=== PATIENT | male | born 1955 | race Caucasian/White ===

== ENCOUNTER 2017-01-12 00:22 | Inpatient (IN) | payer OTHER ==
[2017-01-12] VITALS (28 sets, daily range): BP systolic 107–185; BP diastolic 60–100; PULSE 86–118; RESP 15–38; TEMP 98–99.1; O2SAT 85–99
[~2017-01-12] VITALS: Ht 182.9 cm; Wt 95.7 kg
[2017-01-12] MEDS ORDERED: ASPIRIN 81 MG CHEW TAB PO STA (00:31)
[2017-01-12] MEDS ORDERED: SODIUM CHLOR 0.9% 1000 ML INJ 1,000 ML IV ONE (00:31)
[2017-01-12] MEDS ORDERED: HEPARIN SODIUM - IV 10,000 UNITS/10 ML VIAL IV STA (00:31)
[2017-01-12] MEDS ORDERED: NITROGLYCERIN 0.4 MG SL 25 TABS/BTL SL STA (00:31)
--- NOTE | 2017-01-12 00:34 | PD ---
HPI Chief Complaint: Chest Pain Time Seen by Provider: 00:31 Travel History International Travel<30 days: No Contact w/Intl Traveler<30days: No History of Present Illness HPI Patient is a 61-year-old male who comes in complaining of chest pain. He says the pain started 2 hours ago and is located on the left side. He reports nausea and had an episode of vomiting and dinner. He also reports some shortness of breath. He says he has been having episodes of chest pain for the past week, but they have been short and have gone away on their own. He denies any medical problems, but says that he has not seen a doctor in the past 4 years. [facility] Past Medical History Medical History: Denies Significant Hx Atrial Fibrillation: No Blood Disorders: No Heart Rhythm Problems: No Chest Pain: Yes Congestive Heart Failure: No Past Surgical History Surgical History: No Previous Surgery Social History Tobacco Use: No Allergies-Medications (Allergen,Severity, Reaction): Coded Allergies: No Known Allergies (Unverified , 01/12/17) Review of Systems Except as stated in HPI: all other systems reviewed are Neg General / Constitutional: No: Fever, Chills HENT: No: Headaches, Lightheadedness Cardiovascular: Positive: Chest Pain or Discomfort Respiratory: Positive: Shortness of Breath Gastrointestinal: Positive: Nausea, Vomiting, No: Abdominal Pain Musculoskeletal: No: Edema, Pain Skin: No Rash, No Change in Pigmentation Neurologic: No: Weakness, Dizziness Physical Exam Narrative GENERAL: Awake and alert, in moderate distress. SKIN: Diaphoretic. HEAD: Atraumatic. Normocephalic. EYES: Pupils equal and round. No scleral icterus. ENT: Mucous membranes pink and moist. NECK: Trachea midline. No JVD. CARDIOVASCULAR: Regular rate and rhythm. No murmur appreciated. RESPIRATORY: No accessory muscle use. Clear to auscultation. Breath sounds equal bilaterally. GASTROINTESTINAL: Abdomen soft, non-tender, nondistended. MUSCULOSKELETAL: No obvious deformities. No clubbing. No cyanosis. No edema. NEUROLOGICAL: Awake and alert. No obvious cranial nerve deficits. Motor grossly within normal limits. Normal speech. PSYCHIATRIC: Appropriate mood and affect; insight and judgment normal. Data Data Last Documented VS Vital Signs Date Time Temp Pulse Resp B/P Pulse Ox O2 Delivery O2 Flow Rate FiO2 01/12/17 00:50 101 15 170/91 98 Non-Rebreather 15 01/12/17 00:44 98.3 Orders Troponin I (01/12/17 00:31) Ckmb (Isoenzyme) Profile (01/12/17 00:31) Complete Blood Count With Diff (01/12/17 00:31) I-Stat Profile (01/12/17 00:31) I-Stat Creatinine (01/12/17:31) Calcium (01/12/17 00:31) Magnesium (Mg) (01/12/17:31) Prothrombin Time / Inr (Pt) (01/12/17:31) Act Partial Throm Time (Ptt) (01/12/17:31) B-Type Natriuretic Peptide (01/12/17:31) Chest, Single Ap (01/12/17 00:31) Oxygen Administration (01/12/17 00:31) Iv Access Insert/Monitor (01/12/17 00:31) Oximetry (01/12/17 00:31) Sodium Chlor 0.9% 1000 Ml Inj (Ns 1000 M (01/12/17 00:31) Sodium Chloride 0.9% Flush (Ns Flush) (01/12/17 00:45) Aspirin Chew (Aspirin Chew) (01/12/17 00:31) Nitroglycerin Sl (Nitrostat Sl) (01/12/17 00:31) Nitroglycerin-Dextrose Inj (Nitroglyceri (01/12/17 00:45) Heparin Inj (Heparin Inj) (01/12/17 00:31) CKMB (01/12/17 00:30) CKMB% (01/12/17 00:30) Heparin-Ns/Pf Inj (Heparin-Ns/Pf Inj) (01/12/17 01:00) Admit Order (Ed Use Only) (01/12/17 ) Labs Laboratory Tests Test 01/12/17 00:30 White Blood Count 13.2 TH/MM3 Red Blood Count 5.59 MIL/MM3 Hemoglobin 15.1 GM/DL Bedside Hemoglobin 15.6 G/DL Hematocrit 45.7 % Bedside Hematocrit 46.0 % Mean Corpuscular Volume 81.7 FL Mean Corpuscular Hemoglobin 26.9 PG Mean Corpuscular Hemoglobin 33.0 % Concent Red Cell Distribution Width 14.1 % Platelet Count 298 TH/MM3 Mean Platelet Volume 8.5 FL Neutrophils (%) (Auto) 64.5 % Lymphocytes (%) (Auto) 24.5 % Monocytes (%) (Auto) 7.8 % Eosinophils (%) (Auto) 1.9 % Basophils (%) (Auto) 1.3 % Neutrophils # (Auto) 8.5 TH/MM3 Lymphocytes # (Auto) 3.2 TH/MM3 Monocytes # (Auto) 1.0 TH/MM3 Eosinophils # (Auto) 0.2 TH/MM3 Basophils # (Auto) 0.2 TH/MM3 CBC Comment DIFF FINAL Differential Comment Prothrombin Time 10.3 SEC Prothromb Time International 0.9 RATIO Ratio Activated Partial 26.6 SEC Thromboplast Time Bedside Sodium 142 MMOL/L Bedside Potassium 4.3 MMOL/L Bedside Chloride 108 MMOL/L Bedside Blood Urea Nitrogen 25 MG/DL Bedside Creatinine 1.1 MG/DL Bedside Glucose 128 MG/DL Calcium Level 9.5 MG/DL Magnesium Level 2.2 MG/DL Total Creatine Kinase 149 U/L Creatine Kinase MB 2.0 NG/ML Troponin I 0.22 NG/ML B-Type Natriuretic Peptide 291 PG/ML MDM Medical Decision Making Medical Screen Exam Complete: Yes Emergency Medical Condition: Yes Interpretation(s) ECG shows ST elevation in V1 through V3, lead 3 and aVF. Differential Diagnosis ACS versus STEMI versus NSTEMI Narrative Course Patient is a 61-year-old male who comes in complaining of chest pain. On exam, patient is diaphoretic, in moderate distress. ECG shows a STEMI. STEMI alert issue. IV established, patient connected to the card lacer. Labs sent. With Dr. Simmons of cardiology who agrees with STEMI and will take the patient to the catheter lab. Patient given nitroglycerin, aspirin, heparin. Admitted for further management. Diagnosis Primary Impression: STEMI (ST elevation myocardial infarction) Qualified Code: I21.29 - ST elevation myocardial infarction (STEMI) involving other coronary artery Admitting Information Admitting Physician Requests: Admit Maddi Matthews MD Jan 12, 2017 00:34
[2017-01-12 00:44] LABS: AUTOMATED NEUTROPHIL # 8.5 TH/MM3 (1.8-7.7); BASOPHIL # 0.2 TH/MM3 (0-0.2); BASOPHIL % 1.3 % (0.0-2.0); EOSINOPHIL # 0.2 TH/MM3 (0-0.4); EOSINOPHIL % 1.9 % (0.0-4.0); HEMATOCRIT 45.7 % (39.0-51.0); HEMO FLAGS DIFF FINAL; I-STAT POTASSIUM 4.3 MMOL/L (3.5-4.9); I-STAT SODIUM 142 MMOL/L (138-146); LYMPH % 24.5 % (9.0-44.0); LYMPHOCYTE # 3.2 TH/MM3 (1.0-4.8); MEAN CELL VOLUME 81.7 FL (80.0-100.0); MEAN CORPUSCULAR HEMOGLOBIN 26.9 PG (27.0-34.0); MONO % 7.8 % (0.0-8.0); NEUT % 64.5 % (16.0-70.0); PLATELET COUNT 298 TH/MM3 (150-450); RED BLOOD COUNT 5.59 MIL/MM3 (4.50-5.90); RED CELL DISTRIBUTION WIDTH 14.1 % (11.6-17.2); WHITE BLOOD COUNT 13.2 TH/MM3 (4.0-11.0)
[2017-01-12] MEDS: NITROGLYCERIN-DEXTROSE INJ 250 ML IV SCH (00:44)
[2017-01-12] MEDS ORDERED: SODIUM CHLORIDE 0.9% FLUSH 10 ML FLUSH IVF PRN (00:45)
[2017-01-12 00:50] LABS: APTT (PATIENT) 26.6 SEC (24.3-30.1); INTERNATIONAL NORMALIZED RATIO 0.9 RATIO; PROTHROMBIN TIME - PATIENT 10.3 SEC (9.8-11.6)
[2017-01-12 00:56] LABS: CREATINE KINASE 149 U/L (39-308)
[2017-01-12 00:57] LABS: MAGNESIUM 2.2 MG/DL (1.5-2.5)
[2017-01-12] MEDS ORDERED: HEPARIN-NS/PF INJ 500 ML ONE ×2 (01:00→11:02)
[2017-01-12] MEDS ORDERED: IOHEXOL 350 MG/ML 100 ML BTL (for Cath Lab) OTHER ONE (01:05)
--- NOTE | 2017-01-12 01:27 | RADRPT ---
EXAM DATE/TIME: 01/12/2017 00:51 [facility] COMPARISON: No previous studies available for comparison. INDICATIONS : Stroke alert. Stemi Alert. MEDICAL HISTORY : None. SURGICAL HISTORY : None. ENCOUNTER: Initial ACUITY: 1 day PAIN SCORE: 0/10 LOCATION: Bilateral chest FINDINGS: There are findings of basilar airspace disease most characteristic of atelectasis. No effusion. No pn eumothorax. Heart size within normal limits. CONCLUSION: 1. Basilar atelectasis. No effusion or pneumothorax. Eleno Brito MD on January 12, 2017 at 1:25 Board Certified Radiologist. This report was verified electronically.
[2017-01-12] MEDS ORDERED: SODIUM NITROPRUSSIDE 50 MG/2 ML VIAL ONE (01:28)
[2017-01-12] MEDS ORDERED: HEPARIN SODIUM - IV 10,000 UNITS/10 ML VIAL ONE ×2 (01:35→11:01)
[2017-01-12] MEDS ORDERED: PRASUGREL 10 MG TAB ONE (01:49)
[2017-01-12] MEDS ORDERED: TIROFIBAN BOLUS INJ 100 ML IV ONE (01:49)
[2017-01-12] MEDS ORDERED: FUROSEMIDE 40 MG/4 ML VIAL ONE ×2 (01:50→11:42)
[2017-01-12] MEDS: TIROFIBAN INFUSION INJ 250 ML IV SCH ×2 (01:55→14:02)
[2017-01-12] MEDS ORDERED: MISC INFORMATION XX ONE ×2 (02:00→12:00)
[2017-01-12] MEDS ORDERED: PRASUGREL 10 MG TAB PO ONE (02:00)
[2017-01-12] MEDS ORDERED: BACITRACIN OINT 0.9 GM PKT TOP ONE (02:00)
--- NOTE | 2017-01-12 06:01 | MB ---
cc: WES MCCARTNEY M.D. DATE OF CONSULTATION 01/12/2017 HISTORY OF PRESENT ILLNESS Grant is a very pleasant 60-year-old gentleman with no significant past medical history who developed severe chest pain at approximately 10:00 p.m. on 12/2016, was found to have anterior ST elevation on the EKG in the ER. STEMI Alert called. I discussed the case with Dr. Maddi Matthews. The patient otherwise denies any fevers, chills, or cough, GI or bleeding, PND, orthopnea, syncope or dizziness. PAST MEDICAL HISTORY As Per the History of Present Illness. MEDICATIONS IN THE ER 1. 7000 units of heparin, 2. Aspirin 325. 3. IV nitro. PHYSICAL EXAMINATION VITAL SIGNS: Blood pressure 170/91, pulse 101, temperature 98.3, sats 98% on non-rebreather. GENERAL: He is alert and oriented x 3, in no acute distress. NECK: Supple. No JVD or bruit. CARDIOVASCULAR: S1, S2. No murmurs, rubs, or gallops. LUNGS: Clear to auscultation bilaterally. ABDOMEN: Soft, non-tender, non-distended. Positive bowel sounds. EXTREMITIES: No extremity edema. CHEST X-RAY Bibasilar atelectasis. No effusion or pneumothorax. EKG Sinus rhythm at 89 beats/minute with 4-[address]-segment elevation in lead V1, V2, V3, V4. PACs. LABORATORY DATA White count 13.2, hemoglobin 15.1, hematocrit 45.7, platelet count 298. Sodium 142, potassium 4.3, chloride 108, bicarb 25, creatinine 1.1, glucose 128. Troponin 0.22. BNP is 291. DIAGNOSES 1. STEMI. 2. Hypertension. 3. Hyperglycemia. 4. Congestive heart failure. 5. Decompensated congestive heart failure. 6. Elevated white count. DISCUSSION At this point STEMI has been called. I have discussed the case with the ER physician, Dr. Matthews, and I agree with calling the STEMI Alert. The patient has received aspirin and heparin in the ER as well as IV nitro. PLAN The plan is for emergent cardiac catheterization and probable PCI. MD KAYLA Foster/MINNA /2:09 AM /5:48 AM
[2017-01-12] MEDS ORDERED: ONDANSETRON HCL 4 MG/2 ML VIAL ONE (06:11)
[2017-01-12] MEDS: RAMIPRIL 2.5 MG CAP PO SCH (08:58)
[2017-01-12] MEDS: ASPIRIN 81 MG CHEW TAB PO SCH (08:58)
[2017-01-12] MEDS: ONDANSETRON HCL 4 MG/2 ML VIAL IV PUSH PRN ×3 (09:39→22:35)
[2017-01-12] MEDS ORDERED: TIROFIBAN INFUSION INJ 250 ML IV ONE (11:00)
[2017-01-12 11:19] LABS: AUTOMATED NEUTROPHIL # 10.3 TH/MM3 (1.8-7.7); BASOPHIL # 0.1 TH/MM3 (0-0.2); BASOPHIL % 0.9 % (0.0-2.0); HEMO FLAGS DIFF FINAL; LYMPH % 9.3 % (9.0-44.0); LYMPHOCYTE # 1.1 TH/MM3 (1.0-4.8); MEAN CELL VOLUME 82.2 FL (80.0-100.0); MEAN CORPUSCULAR HEMOGLOBIN 26.5 PG (27.0-34.0); MEAN CORPUSCULAR HGB CONC 32.2 % (32.0-36.0); MONO % 4.5 % (0.0-8.0); NEUT % 85.3 % (16.0-70.0); PLATELET COUNT 263 TH/MM3 (150-450); RED BLOOD COUNT 4.99 MIL/MM3 (4.50-5.90); RED CELL DISTRIBUTION WIDTH 14.1 % (11.6-17.2); WHITE BLOOD COUNT 12.1 TH/MM3 (4.0-11.0)
[2017-01-12 11:27] LABS: APTT (PATIENT) 24.5 SEC (24.3-30.1); PROTHROMBIN TIME - PATIENT 10.7 SEC (9.8-11.6)
[2017-01-12 11:36] LABS: I-STAT POTASSIUM 3.8 MMOL/L (3.5-4.9); I-STAT SODIUM 140 MMOL/L (138-146)
[2017-01-12 12:00] LABS: CKMB 240.4 NG/ML (0.5-3.6)
[2017-01-12] MEDS ORDERED: NITROGLYCERIN-DEXTROSE INJ 250 ML ONE (12:13)
[2017-01-12] MEDS ORDERED: IOHEXOL 350 MG/ML 50 ML BTL (for Cath Lab) OTHER ONE (12:34)
[2017-01-12] MEDS ORDERED: SPIRONOLACTONE 25 MG TAB PO ONE (13:00)
--- NOTE | 2017-01-12 13:10 | EC ---
Study Study Date:01/12/2017 STUDY CONCLUSIONS SUMMARY - Left ventricle: The cavity size was normal. Wall thickness was normal. Systolic function was severely reduced. The estimated ejection fraction was 30%, in the range of 25% to 30%. Akinesis of the anteroseptal, anterior, and apical myocardium. - Mitral valve: Mildly calcified annulus. - Tricuspid valve: Mild regurgitation. If LV function is below 40, please consider prescribing an ACEI or ARB or document rationale for non-use. PROCEDURE DATA STUDY STATUS: Elective. Procedure: Transthoracic echocardiography. Image quality was good. Scanning was performed from the parasternal, apical, and subcostal acoustic windows. Study completion: The patient tolerated the procedure well. Transthoracic echocardiography. M-mode, complete 2D, complete spectral Doppler, and color Doppler. Height: Height: 72in. Weight: Weight: 219.5lb. Body mass index: BMI: 29.8kg/m^2. Body surface area: BSA: 2.22m^2. Patient status: Inpatient. CARDIAC ANATOMY LEFT VENTRICLE: The cavity size was normal. Wall thickness was normal. Systolic function was severely reduced. The estimated ejection fraction was 30%, in the range of 25% to 30%. Regional wall motion abnormalities: Akinesis of the anteroseptal, anterior, and apical myocardium. AORTIC VALVE: Trileaflet; normal thickness leaflets. Doppler: Transvalvular velocity was within the normal range. There was no stenosis. No regurgitation. AORTA: Aortic root: The aortic root was normal in size. MITRAL VALVE: Mildly calcified annulus. Doppler: Transvalvular velocity was within the normal range. There was no evidence for stenosis. No regurgitation. LEFT ATRIUM: The atrium was normal in size. RIGHT VENTRICLE: The cavity size was normal. Wall thickness was normal. PULMONIC VALVE: Doppler: Transvalvular velocity was within the normal range. There was no evidence for stenosis. No regurgitation. TRICUSPID VALVE: Structurally normal valve. Doppler: Transvalvular velocity was within the normal range. Mild regurgitation. PULMONARY ARTERY: The main pulmonary artery was normal-sized. Systolic pressure was within the normal range. RIGHT ATRIUM: The atrium was normal in size. PERICARDIUM: There was no pericardial effusion. SYSTEMIC VEINS: Inferior vena cava: The vessel was normal in size. Patient weight: 219.5lb _Ejection fraction:_ 65-75% _Fractional shortening:_ 32% up to 5Kg 5-11.5Kg 11.6-22.9Kg 23-45Kg 45-57Kg Aortic Root 7-13 <17 13-22 17-27 17-27 LA diam 6-13 <23 24-38 33-47 37-40 RVID 10-17 7-15 7-15 7-18 8-17 LVIDd 12-22 <32 24-38 33-47 37-40 LVPW 2-4 3-6 5-7 6-8 7-8 IVS 2-4 3-6 5-7 6-8 7-8 BASIC MEASUREMENTS ADULT NORMAL Left ventricle Volume, ED, MOD, 1-plane 251 ml Volume, ES, MOD, 1-plane 167 ml Ejection fraction, MOD, 1-plane 33 % Stroke volume, MOD, 1-plane 84 ml Volume index, ED, MOD, 1-plane 113 ml/m^2 Volume index, ES, MOD, 1-plane 75 ml/m^2 Stroke index, MOD, 1-plane 37.8 ml/m^2 Volume, ED, MOD, 2-plane 239 ml Volume, ES, MOD, 2-plane 171 ml Ejection fraction, MOD, 2-plane 28 % Stroke volume, MOD, 2-plane 68 ml Volume index, ED, MOD, 2-plane 108 ml/m^2 Volume index, ES, MOD, 2-plane 77 ml/m^2 Stroke index, MOD, 2-plane 30.6 ml/m^2 LEGEND: Mean values are shown as u=mean value. Asterisk (*) fenton values outside specified normal range. Prepared and signed by Sunil Small [id number]
[2017-01-12] MEDS: FUROSEMIDE 20 MG/2 ML VIAL IV PUSH SCH (17:23)
[2017-01-12] MEDS: SPIRONOLACTONE 25 MG TAB PO SCH (17:23)
[2017-01-12] MEDS ORDERED: METOPROLOL TARTRATE 5 MG/5 ML VIAL IV PUSH PRN (19:45)
--- NOTE | 2017-01-12 19:57 | EKG ---
Date Performed: 01/12/2017 Time Performed: 09:05:46 PTAGE: 61 years EKG: Sinus tachycardia with PVC(s) and PAC(s) Anteroseptal infarct Inferior infarct Abnormal ECG PREVIOUS TRACING : 01/12/2017 05.59 Compared to prior tracing no significant change DOCTOR: Chelsea Bundy Interpretating Date/Time 01/12/2017 19:56:24
--- NOTE | 2017-01-12 20:09 | EKG ---
Date Performed: 01/12/2017 Time Performed: 05:59:24 PTAGE: 61 years EKG: Sinus rhythm with aberrantly conducted supraventricular complexes with PAC(s) Anteroseptal infarct Abnormal ECG PREVIOUS TRACING : 01/12/2017 00.25 Compared to prior tracing no significant change DOCTOR: Chelsea Bundy Interpretating Date/Time 01/12/2017 20:09:33
[2017-01-12] MEDS: MAGNESIUM SULFAT 1 GM PREMIX 100 ML x2 bags IV SCH ×2 (20:12→22:35)
[2017-01-12] MEDS: CARVEDILOL 6.25 MG TAB PO SCH (20:12)
[2017-01-12] MEDS: ATORVASTATIN 10 MG TAB PO SCH (20:12)
--- NOTE | 2017-01-12 20:33 | EKG ---
Date Performed: 01/12/2017 Time Performed: 00:25:12 PTAGE: 61 years EKG: Sinus rhythm WITH MARKED SINUS ARRHYTHMIA PACS ANTEROSEPTAL IN NO PREVIOUS TRACING DOCTOR: Chelsea Bundy Interpretating Date/Time 01/12/2017 20:31:31
[2017-01-13] VITALS (25 sets, daily range): BP systolic 97–127; BP diastolic 52–68; PULSE 72–98; RESP 18–22; TEMP 97.6–99; O2SAT 93–97
[2017-01-13] MEDS: NITROGLYCERIN-DEXTROSE INJ 250 ML IV SCH (00:32)
[2017-01-13] MEDS: ACETAMINOPHEN 325 MG TAB PO PRN ×2 (06:17→15:58)
[2017-01-13 07:06] LABS: AUTOMATED NEUTROPHIL # 9.6 TH/MM3 (1.8-7.7); BASOPHIL # 0.1 TH/MM3 (0-0.2); BASOPHIL % 0.6 % (0.0-2.0); EOSINOPHIL % 0.2 % (0.0-4.0); HEMATOCRIT 35.5 % (39.0-51.0); HEMO FLAGS DIFF FINAL; LYMPH % 16.5 % (9.0-44.0); LYMPHOCYTE # 2.2 TH/MM3 (1.0-4.8); MEAN CELL VOLUME 81.1 FL (80.0-100.0); MEAN CORPUSCULAR HGB CONC 33.4 % (32.0-36.0); MONO % 9.9 % (0.0-8.0); NEUT % 72.8 % (16.0-70.0); PLATELET COUNT 243 TH/MM3 (150-450); RED BLOOD COUNT 4.38 MIL/MM3 (4.50-5.90); RED CELL DISTRIBUTION WIDTH 13.6 % (11.6-17.2); WHITE BLOOD COUNT 13.2 TH/MM3 (4.0-11.0)
[2017-01-13 07:13] LABS: BICARBONATE 28.6 MEQ/L (21.0-32.0); MAGNESIUM 2.5 MG/DL (1.5-2.5); POTASSIUM 3.7 MEQ/L (3.5-5.1)
[2017-01-13 07:26] LABS: HDL CHOLESTEROL 43.2 MG/DL (40.0-60.0)
[2017-01-13 07:48] LABS: CKMB 33.3 NG/ML (0.5-3.6)
[2017-01-13] MEDS: FUROSEMIDE 20 MG/2 ML VIAL IV PUSH SCH ×2 (08:29→18:24)
[2017-01-13] MEDS: SPIRONOLACTONE 25 MG TAB PO SCH (08:30)
[2017-01-13] MEDS: ASPIRIN 81 MG CHEW TAB PO SCH (08:30)
[2017-01-13] MEDS: PRASUGREL 10 MG TAB PO SCH (08:30)
[2017-01-13] MEDS: RAMIPRIL 2.5 MG CAP PO SCH (08:30)
[2017-01-13] MEDS: CARVEDILOL 6.25 MG TAB PO SCH ×2 (08:30→21:32)
[2017-01-13] MEDS ORDERED: INFLUENZA VIRUS VACCINE (QUADRIVALENT) 0.5 ML SYR IM ONE (09:00)
[2017-01-13] MEDS ORDERED: PNEUMOCOCCAL POLYVALENT INJ 25 MCG/0.5 ML SYR IM ONE (09:00)
--- NOTE | 2017-01-13 10:45 | MA ---
cc: WES MCCARTNEY M.D. DATE 01/12/2017 PROCEDURE PERFORMED Left heart catheterization, left ventriculography, coronary angiography, direct PCI with bare metal stent times two of the proximal mid LAD. INDICATIONS STEMI, coronary artery disease, decompensated congestive heart failure, PROCEDURE The patient was brought to the cardiac catheterization laboratory emergently, prepped and draped in the usual sterile fashion. 10 cc's of 1% Lidocaine was used to locally anesthetize the right common femoral artery. A 6-Frisian sheath placed in the right common femoral artery, 4-Frisian diagnostic JR-4 catheter and a 6-Frisian XB 3.5 guide was used to perform left and right coronary angiography, left ventriculography. FINDINGS The LV pressures 188/probably 28/39. Ejection fraction was 40%. Poor quality image. There is no obvious focal segmental wall motion abnormality. The right coronary is large and dominant and has moderate diffuse disease in the proximal and the mid segment up to 40 to perhaps 50% angiographically. The [id number] segment has up to 40% disease. The left main coronary artery has no significant disease angiographically. The LAD is occluded after a large first diagonal artery in the mid segment. The left circumflex vessel is a large vessel with mild disease in the proximal mid segment up to 28% angiographically. It gives off a high obtuse marginal vessel which is a small vessel 0.5 mm in diameter. The second and third obtuse marginal vessels are small 1 mm vessels. The third obtuse marginal vessel was a small to medium-sized vessel probably 2-5 mm in diameter. The first diagonal artery of the LAD is a large medium to large sized vessel with mild diffuse disease proximally up to 20% angiographically. It then bifurcates. The patient's initial ACT was 173. An additional 3500 units of heparin was given. A second ACT was 207, an additional 1500 units of heparin. The final ACT 261. A 0.014 [place] guidewire was used to cross the mid-LAD lesion. This resulted in CATHERINE-II flow with a 99% stenosis in the mid segment. This lesion was directly stented with a 3.0 x 9 Integrity stent with one inflation to 10 atmospheres for 20 seconds. The stenosis went from 100% to 0% with CATHERINE-III flow. The patient still had severe chest pain. I gave him 200 mcg of intracoronary Nipride in 100 mcg increments. The patient tolerated this well hemodynamically. This did improve the chest pain slightly, however, he still had severe chest pain. There was a residual 95% stenosis in the mid LAD. I directly stented this lesion with a 3.0 x 9 integrity stent with one inflation 11 atmospheres for 20 seconds. The stenosis went from 95% to 0% with CATHERINE-III flow. Chest pain post procedure was 2/10. The patient appeared much more comfortable. CONCLUSION 1. STEMI, culprit occluded proximal mid LAD as detailed above. 2. Otherwise mild to moderate three-vessel coronary disease in right dominant system. 3. Probably at least mild to moderate LV systolic dysfunction at 40-45%. No obvious focal segmental wall motion abnormalities, however, imaging was suboptimal. 4. Successful direct PCI bare metal stent of the proximal mid LAD from 100% to 0% with CATHERINE-III flow. 5. Successful direct PCI bare metal stent of the mid-LAD from 95% to 0% with CATHERINE-III flow. 6. Recommend Aggrastat drip per protocol, Effient 60 mg p.o. load, then 10 mg daily for 12-15 months, Altace 2.5 mg daily. I am holding the patient's beta edgardo because he is in decompensated congestive heart failure with a markedly elevated LVDP of 39 mmHg. I have given the patient 40 of IV Lasix in the label remover. We will continue IV nitro at a rate of 30 mcg. I have started Lipitor 10 mg at h.s. MD KAYLA Foster/DAPHNE /2:02 AM /10:32 AM
--- NOTE | 2017-01-13 15:04 | PD.CARD.PN ---
Subjective Subjective Remarks alert in nad, c/o sob Objective Vital Signs / I&O Vital Signs Date Time Temp Pulse Resp B/P Pulse Ox O2 Delivery O2 Flow Rate FiO2 01/13/17 11:28 97 Nasal Cannula 4.00 01/13/17 11:00 73 01/13/17 10:00 74 01/13/17 09:00 92 01/13/17 08:00 84 01/13/17 08:00 98.5 81 20 124/62 97 01/13/17 07:00 81 01/13/17 06:00 78 01/13/17 05:12 91 01/13/17 04:00 97.6 81 20 127/68 95 01/13/17 04:00 88 01/13/17 03:00 96 01/13/17 02:08 84 01/13/17 01:00 88 01/13/17 00:00 92 01/12/17 23:13 99 01/12/17 23:00 98.7 98 20 107/80 93 01/12/17 23:00 98 01/12/17 22:11 91 Nasal Cannula 4.00 01/12/17 22:00 100 01/12/17 21:00 100 01/12/17 20:00 98.7 104 20 131/60 91 01/12/17 20:00 108 01/12/17 19:00 106 01/12/17 18:00 102 01/12/17 17:00 110 01/12/17 16:00 108 01/12/17 16:00 98.2 90 16 125/64 91 I/O 01/12/17 01/12/17 01/12/17 01/13/17 01/13/17 01/13/17 07:00 15:00 23:00 07:00 15:00 23:00 Intake Total 1795 ml 1328 ml 821 ml Output Total 950 ml 1475 ml 275 ml Balance 845 ml -147 ml 546 ml Intake Oral 240 ml 540 ml 240 ml IV Total 1555 ml 788 ml 581 ml Output Urine Total 950 ml 1475 ml 275 ml # Bowel Movements 0 0 Physical Exam GENERAL: SKIN: Warm and dry. HEAD: Normocephalic. EYES: No scleral icterus. No injection or drainage. NECK: Supple, trachea midline. No JVD or lymphadenopathy. CARDIOVASCULAR: Regular rate and rhythm without murmurs, gallops, or rubs. RESPIRATORY: Breath sounds equal bilaterally. No accessory muscle use. GASTROINTESTINAL: Abdomen soft, non-tender, nondistended. MUSCULOSKELETAL: No cyanosis, or edema. BACK: Nontender without obvious deformity. No CVA tenderness. Laboratory Laboratory Tests Test 01/13/17 04:52 White Blood Count 13.2 TH/MM3 Red Blood Count 4.38 MIL/MM3 Hemoglobin 11.8 GM/DL Hematocrit 35.5 % Mean Corpuscular Volume 81.1 FL Mean Corpuscular Hemoglobin 27.0 PG Mean Corpuscular Hemoglobin 33.4 % Concent Red Cell Distribution Width 13.6 % Platelet Count 243 TH/MM3 Mean Platelet Volume 8.7 FL Neutrophils (%) (Auto) 72.8 % Lymphocytes (%) (Auto) 16.5 % Monocytes (%) (Auto) 9.9 % Eosinophils (%) (Auto) 0.2 % Basophils (%) (Auto) 0.6 % Neutrophils # (Auto) 9.6 TH/MM3 Lymphocytes # (Auto) 2.2 TH/MM3 Monocytes # (Auto) 1.3 TH/MM3 Eosinophils # (Auto) 0.0 TH/MM3 Basophils # (Auto) 0.1 TH/MM3 CBC Comment DIFF FINAL Differential Comment Sodium Level 139 MEQ/L Potassium Level 3.7 MEQ/L Chloride Level 104 MEQ/L Carbon Dioxide Level 28.6 MEQ/L Anion Gap 6 MEQ/L Blood Urea Nitrogen 18 MG/DL Creatinine 1.02 MG/DL Estimat Glomerular Filtration 74 ML/MIN Rate Random Glucose 104 MG/DL Calcium Level 8.6 MG/DL Magnesium Level 2.5 MG/DL Total Creatine Kinase 1367 U/L Creatine Kinase MB 33.3 NG/ML Creatine Kinase MB % 2.4 % B-Type Natriuretic Peptide 255 PG/ML Triglycerides Level 89 MG/DL Cholesterol Level 159 MG/DL LDL Cholesterol 98 MG/DL HDL Cholesterol 43.2 MG/DL Cholesterol/HDL Ratio 3.68 RATIO Assessment and Plan Problem List: (1) STEMI (ST elevation myocardial infarction) (2) CAD (coronary artery disease) (3) Hypoxia (4) Cardiomyopathy Assessment and Plan 1.) CAD - pod #2 pci lad, continue aspirin, effient 2.) Cardiomyopathy - increase aldactone 50 mg bid, increase altace 5 mg qd 3.) Hypoxia - v/q scan 4.) ambulate Problem Qualifiers (1) STEMI (ST elevation myocardial infarction): Qualified Code: I21.29 - ST elevation myocardial infarction (STEMI) involving other coronary artery Montrell Simmons MD Jan 13, 2017 15:03
[2017-01-13] MEDS ORDERED: ENOXAPARIN SODIUM 100 MG/ML SYRINGE SQ ONE (15:15)
--- NOTE | 2017-01-13 15:21 | EKG ---
Date Performed: 01/13/2017 Time Performed: 05:52:38 PTAGE: 61 years EKG: Sinus rhythm with PVC(s) with PAC(s) Ant/septal and lateral T wave changes may be due to myocardial Ischemia When compared to previous tracing, T wave invertion is now Present across the anterior precordium, consis tant with involving Anterior injury. Abnormal ECG PREVIOUS TRACING : 01/12/2017 09.05 DOCTOR: Howie Agrawal Interpretating Date/Time 01/13/2017 15:21:06
--- NOTE | 2017-01-13 17:18 | RADRPT ---
EXAM DATE/TIME: 01/13/2017 16:15 [facility] COMPARISON: CHEST SINGLE AP, January 12, 2017, 0:51. INDICATIONS : Shortness of breath. DOSE: 8.8 mCi Tc99m MAA IV 1.5 mCi Tc99m DTPA aerosol MEDICAL HISTORY : Hypercholesterolemia. Hypertension. Gastroesophageal reflux disease. SURGICAL HISTORY : Coronary artery stent. ENCOUNTER: Initial ACUITY: 1 day PAIN SCALE: 0/10 LOCATION: chest TECHNIQUE: Following five minutes of tidal breathing of DTPA aerosol, planar images of the lungs were performed in eight projections. The patient was then injected with MAA, and eight-view perfusion scan was perf ormed. FINDINGS: There is a mildly heterogeneous pattern of aerosol delivery to the right lower lobe. Otherwise homoge neous. The perfusion lung scan demonstrates a homogenous pattern of uptake in both lungs. No segmental or s ubsegmental defects are seen. CONCLUSION: No mismatch perfusion defects. No evidence of pulmonary embolus. Denis De Jesus MD on January 13, 2017 at 17:15 Board Certified Radiologist. This report was verified electronically.
[2017-01-13] MEDS: SPIRONOLACTONE 50 MG TAB PO SCH (18:24)
[2017-01-13] MEDS: ONDANSETRON HCL 4 MG/2 ML VIAL IV PUSH PRN (20:45)
[2017-01-13] MEDS: ATORVASTATIN 10 MG TAB PO SCH (21:32)
[2017-01-14] VITALS (25 sets, daily range): BP systolic 105–130; BP diastolic 55–65; PULSE 64–94; RESP 16–20; TEMP 97.9–99.6; O2SAT 91–99
[2017-01-14] MEDS ORDERED: ENOXAPARIN SODIUM 100 MG/ML SYRINGE SQ SCH (03:00)
[2017-01-14] MEDS: ACETAMINOPHEN 325 MG TAB PO PRN (03:28)
[2017-01-14 06:56] LABS: HEMATOCRIT 36.5 % (39.0-51.0); MEAN CELL VOLUME 81.2 FL (80.0-100.0); MEAN CORPUSCULAR HEMOGLOBIN 27.6 PG (27.0-34.0); PLATELET COUNT 218 TH/MM3 (150-450); RED BLOOD COUNT 4.49 MIL/MM3 (4.50-5.90); RED CELL DISTRIBUTION WIDTH 13.8 % (11.6-17.2); REVIEW FLAG FINAL; WHITE BLOOD COUNT 9.5 TH/MM3 (4.0-11.0)
[2017-01-14 07:19] LABS: MAGNESIUM 2.3 MG/DL (1.5-2.5); POTASSIUM 3.8 MEQ/L (3.5-5.1)
[2017-01-14] MEDS: RAMIPRIL 5 MG CAP PO SCH (09:46)
[2017-01-14] MEDS: PRASUGREL 10 MG TAB PO SCH (09:46)
[2017-01-14] MEDS: CARVEDILOL 6.25 MG TAB PO SCH ×2 (09:48→21:28)
[2017-01-14] MEDS: ASPIRIN 81 MG CHEW TAB PO SCH (09:48)
[2017-01-14] MEDS: SPIRONOLACTONE 50 MG TAB PO SCH ×2 (09:49→18:21)
[2017-01-14] MEDS: FUROSEMIDE 20 MG/2 ML VIAL IV PUSH SCH ×2 (09:50→18:22)
[2017-01-14] MEDS: ONDANSETRON HCL 4 MG/2 ML VIAL IV PUSH PRN (13:30)
--- NOTE | 2017-01-14 16:47 | PD.CARD.PN ---
Subjective Subjective Remarks alert in nad Objective Vital Signs / I&O Vital Signs Date Time Temp Pulse Resp B/P Pulse Ox O2 Delivery O2 Flow Rate FiO2 01/14/17 16:08 74 01/14/17 15:00 98.3 75 18 105/56 92 01/14/17 15:00 74 01/14/17 14:00 74 01/14/17 13:00 75 01/14/17 12:25 64 01/14/17 11:00 98.3 82 18 113/63 91 01/14/17 11:00 85 01/14/17 10:19 78 01/14/17 09:37 81 01/14/17 08:00 84 01/14/17 07:45 97.9 77 18 122/55 99 01/14/17 07:45 85 01/14/17 06:03 78 01/14/17 05:07 76 01/14/17 04:00 76 01/14/17 03:30 98.0 73 18 130/63 97 01/14/17 03:00 94 01/14/17 02:00 80 01/14/17 01:00 78 01/14/17 00:10 73 01/13/17 23:27 98.2 84 18 111/56 96 01/13/17 23:00 80 01/13/17 22:00 78 01/13/17 21:00 76 01/13/17 20:00 86 01/13/17 20:00 98.8 85 22 121/68 93 01/13/17 19:00 82 01/13/17 18:00 88 I/O 01/13/17 01/13/17 01/13/17 01/14/17 01/14/17 01/14/17 07:00 15:00 23:00 07:00 15:00 23:00 Intake Total 821 ml 730 ml 533 ml Output Total 275 ml 600 ml 475 ml Balance 546 ml 130 ml 58 ml Intake Oral 240 ml 720 ml 480 ml IV Total 581 ml 10 ml 53 ml Output Urine Total 275 ml 600 ml 475 ml # Bowel Movements 0 0 0 Physical Exam GENERAL: SKIN: Warm and dry. HEAD: Normocephalic. EYES: No scleral icterus. No injection or drainage. NECK: Supple, trachea midline. No JVD or lymphadenopathy. CARDIOVASCULAR: Regular rate and rhythm without murmurs, gallops, or rubs. RESPIRATORY: Breath sounds equal bilaterally. No accessory muscle use. GASTROINTESTINAL: Abdomen soft, non-tender, nondistended. MUSCULOSKELETAL: No cyanosis, or edema. BACK: Nontender without obvious deformity. No CVA tenderness. Laboratory Laboratory Tests Test 01/14/17 06:28 White Blood Count 9.5 TH/MM3 Red Blood Count 4.49 MIL/MM3 Hemoglobin 12.4 GM/DL Hematocrit 36.5 % Mean Corpuscular Volume 81.2 FL Mean Corpuscular Hemoglobin 27.6 PG Mean Corpuscular Hemoglobin 34.0 % Concent Red Cell Distribution Width 13.8 % Platelet Count 218 TH/MM3 Mean Platelet Volume 8.5 FL Sodium Level 138 MEQ/L Potassium Level 3.8 MEQ/L Chloride Level 101 MEQ/L Carbon Dioxide Level 30.0 MEQ/L Anion Gap 7 MEQ/L Blood Urea Nitrogen 21 MG/DL Creatinine 0.98 MG/DL Estimat Glomerular Filtration 77 ML/MIN Rate Random Glucose 100 MG/DL Calcium Level 8.7 MG/DL Magnesium Level 2.3 MG/DL B-Type Natriuretic Peptide 293 PG/ML Assessment and Plan Problem List: (1) STEMI (ST elevation myocardial infarction) (2) CAD (coronary artery disease) (3) Hypoxia (4) Cardiomyopathy Assessment and Plan 1.) CAD - pod #3 pci lad, continue aspirin, effient, lipitor 2.) Cardiomyopathy - increase aldactone 50 mg bid, increase altace 5 mg qd, cont coreg 6.25 mg bid 3.) Hypoxia - v/q scan 4.) ambulate 5.) [facility] f/u with ut 01/17/17, d/w nurse and patient and patient's family Problem Qualifiers (1) STEMI (ST elevation myocardial infarction): Qualified Code: I21.29 - ST elevation myocardial infarction (STEMI) involving other coronary artery Montrell Simmons MD Jan 14, 2017 16:47
--- NOTE | 2017-01-14 17:04 | EKG ---
Date Performed: 01/13/2017 Time Performed: 17:33:02 PTAGE: 61 years EKG: Sinus rhythm Possible anterior infarct - age undetermined Lateral ST-T changes are nonspecific Compared to previo us tracing, once again their is evidence of anterior infarction Clinical correlation is recommended A bnormal ECG PREVIOUS TRACING : 01/13/2017 05.52 DOCTOR: Kayla Mancilla Interpretating Date/Time 01/14/2017 17:03:35
[2017-01-14] MEDS: ATORVASTATIN 10 MG TAB PO SCH (21:28)
[2017-01-15] VITALS (17 sets, daily range): BP systolic 112–132; BP diastolic 64–68; PULSE 66–82; RESP 20–21; TEMP 98.5–98.8; O2SAT 95–96
--- NOTE | 2017-01-15 08:25 | PD.CARD.PN ---
Subjective Subjective Remarks asleep in nad Objective Vital Signs / I&O Vital Signs Date Time Temp Pulse Resp B/P Pulse Ox O2 Delivery O2 Flow Rate FiO2 01/15/17 08:00 72 01/15/17 07:37 69 01/15/17 06:24 68 01/15/17 05:08 69 01/15/17 04:00 74 01/15/17 03:00 66 01/15/17 03:00 98.7 73 21 114/65 96 01/15/17 02:00 73 01/15/17 01:18 82 01/15/17 00:26 74 01/14/17 23:00 98.9 72 20 127/65 97 01/14/17 23:00 71 01/14/17 22:00 82 01/14/17 21:00 80 01/14/17 20:00 84 01/14/17 19:00 99.6 76 16 109/55 95 01/14/17 19:00 82 01/14/17 18:51 82 01/14/17 17:20 77 01/14/17 16:08 74 01/14/17 15:00 98.3 75 18 105/56 92 01/14/17 15:00 74 01/14/17 14:00 74 01/14/17 13:00 75 01/14/17 12:25 64 01/14/17 11:00 98.3 82 18 113/63 91 01/14/17 11:00 85 01/14/17 10:19 78 01/14/17 09:37 81 I/O 01/14/17 01/14/17 01/14/17 01/15/17 01/15/17 01/15/17 07:00 15:00 23:00 07:00 15:00 23:00 Intake Total 533 ml 360 ml 480 ml Output Total 475 ml 950 ml Balance 58 ml 360 ml -470 ml Intake Oral 480 ml 360 ml 480 ml IV Total 53 ml Output Urine Total 475 ml 950 ml # Voids 8 # Bowel Movements 0 5 Physical Exam GENERAL: SKIN: Warm and dry. HEAD: Normocephalic. EYES: No scleral icterus. No injection or drainage. NECK: Supple, trachea midline. No JVD or lymphadenopathy. CARDIOVASCULAR: Regular rate and rhythm without murmurs, gallops, or rubs. RESPIRATORY: Breath sounds equal bilaterally. No accessory muscle use. GASTROINTESTINAL: Abdomen soft, non-tender, nondistended. MUSCULOSKELETAL: No cyanosis, or edema. BACK: Nontender without obvious deformity. No CVA tenderness. Assessment and Plan Problem List: (1) STEMI (ST elevation myocardial infarction) (2) CAD (coronary artery disease) (3) Hypoxia (4) Cardiomyopathy Assessment and Plan 1.) CAD - pod #4 pci lad, continue aspirin, effient, lipitor 2.) Cardiomyopathy - increase aldactone 50 mg bid, increase altace 5 mg qd, cont coreg 6.25 mg bid 3.) Hypoxia - v/q scan 4.) ambulate 5.) Dc to home on [employer], f/u with me 01/17/17, d/w nurse and patient and patient's family Problem Qualifiers (1) STEMI (ST elevation myocardial infarction): Qualified Code: I21.29 - ST elevation myocardial infarction (STEMI) involving other coronary artery Montrell Simmons MD Jan 15, 2017 08:25
[2017-01-15] MEDS: ASPIRIN 81 MG CHEW TAB PO SCH (09:36)
[2017-01-15] MEDS: SPIRONOLACTONE 50 MG TAB PO SCH (09:37)
[2017-01-15] MEDS: PRASUGREL 10 MG TAB PO SCH (09:37)
[2017-01-15] MEDS: FUROSEMIDE 20 MG/2 ML VIAL IV PUSH SCH (09:37)
[2017-01-15] MEDS: CARVEDILOL 6.25 MG TAB PO SCH (09:37)
[2017-01-15] MEDS: RAMIPRIL 5 MG CAP PO SCH (09:38)
--- NOTE | 2017-01-15 09:43 | PD.CONS ---
HPI Service [facility] Consult Requested By Montrell Simmons MD Reason for Consult Medical Management Primary Care Physician No Primary Care Physician Diagnoses: History of Present Illness This is a pleasant 61 y/o Male seen in Emergency room by ER specialist Doctor Maddi Matthews on January 12 at 0034 Hours when he came with Chest pain, that started 2 hours before coming to ER, located on Left side, reported Nausea and vomit, reported some Shortness of breath, was consulted to citizen participation specialist Doctor Montrell Simmons who performed Cardiac Catheterization, we were asked for consult on this patient for medical management. Cardiac Catheterization performed January 12 as Left Heart Catheterization, Left Ventriculography, Coronary angiography, direct PCI with Bare Metal Stent x 2 of the Proximal Mid LAD, with Diagnosis of STEMI, Occluded proximal mid LAD, mild three vessel Coronary artery disease, right dominant. Mild to moderate Left Ventricular dysfunction at 40-45%. recommended Aggrastat drip per protocol, Effient 60 mg by mouth load, then 10 mg daily for 12 to 15 months , Altace 2.5 mg daily, the patient had decompensated Heart Failure with markedly LVDP of 39 mm Hg. Seen in the room in the presence of nurse Miss Guan he had nausea and vomit yesterday but today improved is having some cough non productive, will start respiratory therapy. Review of Systems Respiratory: COMPLAINS OF: Cough Past Family Social History Allergies: Coded Allergies: No Known Allergies (Unverified , 01/12/17) Past Medical History OA QIAN on CPAP eight years ago but not using CPAP for the last seven years Past Surgical History Left Knee surgery x 2 Right Knee surgery x 3 Right shoulder surgery Cataract Surgery Bilateral Appendectomy Left ankle surgery Reported Medications No previous Medications. Active Ordered Medications Current Medications Medications (Trade) Dose Ordered Sig/Lenora Route Start Time Stop Time Status Last Admin Sodium Chloride 2 ml 2 ml UNSCH PRN IVF 01/12/17 00:45 01/14/17 09:52 (Nitroglycerin-Dextrose Inj) 250 ml @ 0 mls/hr TITRATE IV 01/12/17 00:45 01/13/17 00:32 (Aspirin Chew) 162 mg DAILY PO 01/12/17 09:00 01/14/17 09:48 (Effient) 10 mg DAILY PO 01/13/17 09:00 01/14/17 09:46 (Lipitor) 10 mg HS PO 01/12/17 21:00 01/14/17 21:28 (Zofran Inj) 2 mg Q6H PRN IV PUSH 01/12/17 06:30 01/14/17 13:30 (Lasix Inj) 20 mg BID@09,18 IV PUSH 01/12/17 18:00 01/14/17 18:22 (Coreg) 6.25 mg BID PO 01/12/17 20:00 01/14/17 21:28 (Tylenol) 650 mg Q8H PRN PO 01/13/17 06:15 01/14/17 03:28 (Aldactone) 50 mg BID@,18 PO 01/13/17 18:00 01/14/17 18:21 (Altace) 5 mg DAILY PO 01/14/17 09:00 01/14/17 09:46 Family History Father with CAD multiple MIs. Social History Denies toxic habits. Physical Exam Vital Signs Vital Signs Date Time Temp Pulse Resp B/P Pulse Ox O2 Delivery O2 Flow Rate FiO2 01/15/17 08:00 72 01/15/17 07:37 69 01/15/17 06:24 68 01/15/17 05:08 69 01/15/17 04:00 74 01/15/17 03:00 66 01/15/17 03:00 98.7 73 21 114/65 96 01/15/17 02:00 73 01/15/17 01:18 82 01/15/17 00:26 74 01/14/17 23:00 98.9 72 20 127/65 97 01/14/17 23:00 71 01/14/17 22:00 82 01/14/17 21:00 80 01/14/17 20:00 84 01/14/17 19:00 99.6 76 16 109/55 95 01/14/17 19:00 82 01/14/17 18:51 82 01/14/17 17:20 77 01/14/17 16:08 74 01/14/17 15:00 98.3 75 18 105/56 92 01/14/17 15:00 74 01/14/17 14:00 74 01/14/17 13:00 75 01/14/17 12:25 64 01/14/17 11:00 98.3 82 18 113/63 91 01/14/17 11:00 85 01/14/17 10:19 78 01/14/17 09:37 81 Physical Exam GENERAL: Well-developed patient, in no apparent distress. SKIN: No rashes, ecchymoses or lesions. Cool and dry. HEAD: Atraumatic. Normocephalic. No temporal or scalp tenderness. EYES: Pupils equal round and reactive. Extraocular motions intact. No scleral icterus. No injection or drainage. ENT: Nose without bleeding, purulent drainage or septal hematoma. Throat without erythema, tonsillar hypertrophy or exudate. Uvula midline. Airway patent. NECK: Trachea midline. No JVD or lymphadenopathy. Supple, nontender, no meningeal signs. CARDIOVASCULAR: Regular rate and rhythm without murmurs, gallops, or rubs. RESPIRATORY: Clear to auscultation. Breath sounds equal bilaterally. No wheezes , rales, or rhonchi. GASTROINTESTINAL: Abdomen soft, non-tender, nondistended. No hepato-splenomegaly , or palpable masses. No guarding. MUSCULOSKELETAL: Extremities without clubbing, cyanosis, or edema. No joint tenderness, effusion, or edema noted. No calf tenderness. Negative Homans sign bilaterally. NEUROLOGICAL: Awake and alert. Cranial nerves II through XII intact. Motor and sensory grossly within normal limits. Five out of 5 muscle strength in all muscle groups. Normal speech. Result Diagram: 01/14/1728 01/14/17 0628 Imaging Last Impressions Lung Scan-VQ Nuclear Medicine 01/13/17 0000 Signed Impressions: Service Date/Time: December 16:15 - CONCLUSION: No mismatch perfusion defects. No evidence of pulmonary embolus. Denis De Jesus MD Chest X-Ray 01/12/17 0031 Signed Impressions: Service Date/Time: Thursday, January 12, 2017 00:51 - CONCLUSION: 1. Basilar atelectasis. No effusion or pneumothorax. Eleno Brito MD Assessment and Plan Assessment and Plan 1. STEMI status post Left Heart Catheterization, Left Ventriculography, Coronary angiography, direct PCI with Bare Metal Stent x 2 of the Proximal Mid LAD, with Diagnosis of STEMI, Occluded proximal mid LAD, mild three vessel CAD right dominant. Mild to moderate Left Ventricular dysfunction at 40-45%. recommended Aggrastat drip per protocol, Effient 60 mg by mouth load, then 10 mg daily for 12 to 15 months, Altace 2.5 mg daily, the patient had decompensated Heart Failure with markedly LVDP of 39 mm Hg. 2. Intractable Nausea and vomit Improved will continue gastric protection 3. GERD on PPIs. 4. QIAN not on CPAP he will need to get PCP for evaluation and outpatient Polysomnogram and get again his CPAP Machine, he had it 8 years ago but only used it for one year 5. Leukocytosis reactive improved. Okay to Discharge Home from medicine standpoint. Encourage activity Bronchodilator, Mucolytic and incentive spirometry PPIs follow with PCP at discharge to schedule his Polysomnogram. Code Status Full Code. Discussed Condition With Patient and nurse Miss Guan all questions answered to the best of my abilities. Augusto Galvin MD Jan 15, 2017 09:43
--- NOTE | 2017-01-15 10:22 | MR ---
cc: WES MCCARTNEY M.D. DATE: 01/12/2017 PROCEDURE PERFORMED: 1. Left heart catheterization. 2. Coronary angiography. 3. Left ventriculography. INDICATION: Recurrent chest pain, post PCI, 8 out of 10 chest pain, same pain as he had prior to his PCI. Abnormal EKG with ST elevation in anterior leads. PROCEDURE: The patient was brought to the Cardiac Catheterization Laboratory, prepped and draped in the usual sterile fashion. 10 cc of 1% lidocaine was used to locally anesthetize the right common femoral artery. A 4 Yemeni sheath was placed in the right common femoral artery. 4 Yemeni JR4 and JL4 catheters were used to perform left and right coronary angiography and left ventriculography. FINDINGS: LV pressure is 120/10/21, ejection fraction 45 to 50%. Anterior wall appears to be rajni normally. The apex is moderately hypokinetic. The olecranon is large and dominant, mild to moderate diffuse disease throughout most of its length, up to 40 to 50% angiographically. It is a large vessel. Reference vessel diameter is probably 6 mm in diameter. Left main coronary has no significant disease angiographically. LAD is transapical. Stent in the proximal and mid segment are widely patent. Flow was CATHERINE 3 into the vessel. There is a large first diagonal artery which bifurcates which has mild disease. Just distal to this vessel there is at most 50% stenosis. Left circumflex vessel has mild diffuse disease in the proximal mid segment up to 30 to 40% angiographically, slightly ectatic. CONCLUSION 1. Nonischemic chest pain. 2. Widely patent stents in the LAD as detailed above. 3. Otherwise mild to moderate three-vessel coronary disease. 4. Mildly decreased LV systolic function, EF 45 to 50%. 5. Moderately hypokinetic apex. 6. Recommend stat 2-D echocardiogram and CT of the chest. 7. Also will give another 40 of IV Lasix as the patient is on 5 liters nasal cannula. 8. Continue ____, Effient 10 milligrams daily. Aspirin 160 daily. MD KAYLA Foster/SARA /11:47 AM /10:09 AM
[2017-01-15] MEDS ORDERED: PANTOPRAZOLE SOD 40 MG DELAYED RELEASE TAB PO SCH (11:00)
[2017-01-15] MEDS ORDERED: guaiFENesin E.R. 600 MG TAB PO SCH (11:00)
[2017-01-15] MEDS ORDERED: RESP: IPRATROPIUM 0.5 MG/2.5 ML NEB NEB SCH (11:00)
[2017-01-15] MEDS ORDERED: ACET325T PO (14:42)
[2017-01-15] MEDS ORDERED: RAMI5CAP PO (14:53)
[2017-01-15] MEDS ORDERED: LIPI10TA PO (14:53)
[2017-01-15] MEDS ORDERED: PROT40TA PO (14:53)
[2017-01-15] MEDS ORDERED: MUCI600T PO (14:53)
[2017-01-15] MEDS ORDERED: CARV6.25 PO (14:53)
[2017-01-15] MEDS ORDERED: ASPI81CH CHEW (14:53)
[2017-01-15] MEDS ORDERED: PRAS10TA PO (15:00)
[2017-01-15] MEDS ORDERED: ALDA50TA2 PO (15:00)
--- NOTE | 2017-01-27 13:12 | MD ---
cc: WES MCCARTNEY M.D. ADMISSION DATE: 01/12/2017 DISCHARGE DATE: 01/15/2017 ATTENDING PHYSICIAN Grant is a very pleasant 60-year-old gentleman who presented to the ER 01/12/2017 with a chief complaint of chest pain found have anterior ST elevation, code STEMI was called. The patient brought to the cardiac catheterization laboratory, found to have an occluded proximal LAD. This was stented x2 with two bare metal stents. The following morning, the patient had recurrent chest pain and shortness of breath. He was brought back to the [facility] emergently. Stents were widely patent. There was no other significant obstructive disease. The patient's initial ejection fraction was 40%. He was treated with aspirin, Effient, Aggrestatin, heparin,, Lipitor, Altace, and Coreg. The patient continued to complain of shortness of breath. He was up titrated on Aldactone to 50 mg b.i.d. and Altace to five daily. He had a VQ scan which was negative. He was encouraged to ambulate. He was started on Coreg 6.25 b.i.d. On 01/15/2017, the patient was off oxygen. He was discharged to home at that time on the aforementioned medications with plans for followup with me as soon as possible. He also had a 2-D echo done on 01/12/2017 which showed an EF of 30%, akinesis of the anteroseptal, anterior and apical myocardium, mild mitral regurgitation, mild mitral calcification. MD KAYLA Foster/DAPHNE /12:42 PM /1:03 PM
== END 2017-01-15 16:12 | disposition home or self-care (01) | DRG 248 ==
LOC: NEPC 00:22 → NEDA 01:13 → HCIN 02:28
PROVIDERS: ADMIT Internal Medicine Interventional Cardiology; ATTEND Internal Medicine Interventional Cardiology
PROC: B2151ZZ Fluoroscopy of Left Heart using Low Osmolar Contrast (ICD-10-PCS; principal; 2017-01-12)
PROC: 02703EZ Dilation of Coronary Artery, One Artery with Two Intraluminal Devices, Percutaneous Approach (ICD-10-PCS; 2017-01-12)
PROC: B2111ZZ Fluoroscopy of Multiple Coronary Arteries using Low Osmolar Contrast (ICD-10-PCS; 2017-01-12)
PROC: 4A023N7 Measurement of Cardiac Sampling and Pressure, Left Heart, Percutaneous Approach (ICD-10-PCS; 2017-01-12)
PROC: 4A023N7 Measurement of Cardiac Sampling and Pressure, Left Heart, Percutaneous Approach (ICD-10-PCS; 2017-01-12)
PROC: B2111ZZ Fluoroscopy of Multiple Coronary Arteries using Low Osmolar Contrast (ICD-10-PCS; 2017-01-12)
PROC: B2151ZZ Fluoroscopy of Left Heart using Low Osmolar Contrast (ICD-10-PCS; 2017-01-12)
DX: I21.02 ST elevation (STEMI) myocardial infarction involving left anterior descending coronary artery (principal); I50.23 Acute on chronic systolic (congestive) heart failure; I42.9 Cardiomyopathy, unspecified; I11.0 Hypertensive heart disease with heart failure; R73.9 Hyperglycemia, unspecified; G47.33 Obstructive sleep apnea (adult) (pediatric); I25.10 Atherosclerotic heart disease of native coronary artery without angina pectoris; R11.2 Nausea with vomiting, unspecified; K21.9 Gastro-esophageal reflux disease without esophagitis; D72.829 Elevated white blood cell count, unspecified; R09.02 Hypoxemia; Z23 Encounter for immunization
CPT/HCPCS: 71010; 76937; 78582; 80048; 80061; 82310; 82435; 82550; 82552; 82565; 82947; 83735; 83880; 84132; 84295; 84484; 84520; 85002; 85025; 85027; 85347; 85610; 85730; 90686; 90732; 92941; 93005; 93306; 93458; 94664; 96374; 96375; A9540; A9567; C1769; C1876; C1887; C1893; J1644; J1650; J1940; J2405; J3010; J3246; J3475; J7030; J7644; Q2038; Q9967

== ENCOUNTER 2017-02-22 10:44 | Inpatient (IN) | payer OTHER ==
[2017-02-22] VITALS (11 sets, daily range): BP systolic 100–118; BP diastolic 46–66; PULSE 66–89; RESP 16–28; TEMP 97.6–98.1; O2SAT 96–99
[~2017-02-22] VITALS: Ht 182.9 cm; Wt 101.5 kg
[~2017-02-22 10:44] MED LIST: ACET325T PO; ALDA50TA2 PO; ASPI81CH CHEW; CARV6.25 PO; LIPI10TA PO; MUCI600T PO; PRAS10TA PO; PROT40TA PO; RAMI5CAP PO
[2017-02-22] MEDS ORDERED: ASPIRIN 325 MG TAB PO ONE (11:00)
[2017-02-22] MEDS ORDERED: SODIUM CHLORIDE 0.9% FLUSH 10 ML FLUSH IVF PRN (11:00)
[2017-02-22] MEDS ORDERED: FURO1TAB62 PO (11:00)
[2017-02-22] MEDS ORDERED: MORPHINE SULFATE 4 MG/ML INJ IV PUSH ONE (11:00)
[2017-02-22] MEDS: NITROGLYCERIN 0.4 MG SL 25 TABS/BTL SL SCH ×3 (11:10→11:25)
[2017-02-22 11:16] LABS: AUTOMATED NEUTROPHIL # 5.9 TH/MM3 (1.8-7.7); BASOPHIL # 0.1 TH/MM3 (0-0.2); BASOPHIL % 1.2 % (0.0-2.0); EOSINOPHIL # 0.2 TH/MM3 (0-0.4); EOSINOPHIL % 1.7 % (0.0-4.0); HEMATOCRIT 45.7 % (39.0-51.0); HEMO FLAGS DIFF FINAL; LYMPH % 28.8 % (9.0-44.0); LYMPHOCYTE # 2.9 TH/MM3 (1.0-4.8); MEAN CELL VOLUME 79.8 FL (80.0-100.0); MEAN CORPUSCULAR HEMOGLOBIN 27.8 PG (27.0-34.0); MEAN CORPUSCULAR HGB CONC 34.8 % (32.0-36.0); MONO % 10.1 % (0.0-8.0); NEUT % 58.2 % (16.0-70.0); PLATELET COUNT 303 TH/MM3 (150-450); RED BLOOD COUNT 5.73 MIL/MM3 (4.50-5.90); RED CELL DISTRIBUTION WIDTH 14.2 % (11.6-17.2); WHITE BLOOD COUNT 10.1 TH/MM3 (4.0-11.0)
--- NOTE | 2017-02-22 11:19 | RADRPT ---
EXAM DATE/TIME: 02/22/2017 10:56 [facility] COMPARISON: CHEST SINGLE AP, January 12, 2017, 0:51. INDICATIONS : Chest pains with shortness of breath. MEDICAL HISTORY : None. SURGICAL HISTORY : None. ENCOUNTER: Initial ACUITY: 1 day PAIN SCORE: 0/10 LOCATION: Bilateral chest FINDINGS: A single view of the chest demonstrates diminished lung volumes with minimal bibasilar subsegmental a telectasis. The cardiomediastinal contours are unremarkable. Osseous structures are intact. CONCLUSION: Bibasilar subsegmental atelectasis. Daniel Mcknight MD on February 22, 2017 at 11:17 Board Certified Radiologist. This report was verified electronically.
[2017-02-22 11:31] LABS: PROTHROMBIN TIME - PATIENT 10.7 SEC (9.8-11.6)
[2017-02-22 11:36] LABS: APTT (PATIENT) 26.8 SEC (24.3-30.1)
--- NOTE | 2017-02-22 12:27 | PD ---
HPI Chief Complaint: Chest Pain Time Seen by Provider: 10:58 Travel History International Travel<30 days: No Contact w/Intl Traveler<30days: No Traveled to known affect area: No History of Present Illness HPI 61-year-old male was sent here directly from Dr. Simmons's office due to chest pain. It started last night. He is retrosternal. It's at least 6/10. It's a pressure-like sensation. There is radiation to the neck. It started at rest. The patient underwent coronary catheterization about 5 weeks prior with a mid LAD lesion which was successfully stented. He has been taking Effient since. + Pleuritic component today. Duration about 3 days. PFSH Past Medical History Atrial Fibrillation: No Blood Disorders: No Heart Rhythm Problems: No Cancer: No Cardiovascular Problems: Yes High Cholesterol: Yes (hx- pt lost weight and he says his cholesterol is good) Chest Pain: Yes Congestive Heart Failure: No GERD: Yes Genitourinary: Yes Kidney Stones: Yes (hx) Neurologic: No Myocardial Infarction: Yes Tetanus Vaccination: > 5 Years Influenza Vaccination: Yes Past Surgical History Abdominal Surgery: Yes (appendectomy) Appendectomy: Yes Eye Surgery: Yes (cataracts) Social History Alcohol Use: No Tobacco Use: No Substance Use: No Allergies-Medications (Allergen,Severity, Reaction): Coded Allergies: No Known Allergies (Unverified , 02/22/17) Reported Meds & Prescriptions Reported Meds & Active Scripts Active Reported Lasix (Furosemide) 20 Mg Tab 20 Mg PO BID Aldactone (Spironolactone) 50 Mg Tab 50 Mg PO BIDPC Effient (Prasugrel) 10 Mg Tab 10 Mg PO DAILY Aspirin 81 Mg Chew 162 Mg CHEW DAILY Lipitor (Atorvastatin Calcium) 10 Mg Tab 40 Mg PO HS Coreg (Carvedilol) 6.25 Mg Tab 6.25 Mg PO BID Ramipril 5 Mg Cap 5 Mg PO BID Review of Systems Except as stated in HPI: all other systems reviewed are Neg Physical Exam Narrative GENERAL: 61 yo M, WNWD, mild to moderate distress SKIN: Warm and dry. HEAD: Atraumatic. Normocephalic. EYES: Pupils equal and round. No scleral icterus. No injection or drainage. ENT: No nasal bleeding or discharge. Mucous membranes pink and moist. NECK: Trachea midline. No JVD. CARDIOVASCULAR: Regular rate and rhythm. RESPIRATORY: No accessory muscle use. Clear to auscultation. Breath sounds equal bilaterally. GASTROINTESTINAL: Abdomen soft, non-tender, nondistended. Hepatic and splenic margins not palpable. MUSCULOSKELETAL: Extremities without clubbing, cyanosis, or edema. No obvious deformities. NEUROLOGICAL: Awake and alert. No obvious cranial nerve deficits. Motor grossly within normal limits. Five out of 5 muscle strength in the arms and legs. Normal speech. PSYCHIATRIC: Appropriate mood and affect; insight and judgment normal. Data Data Last Documented VS Vital Signs Date Time Temp Pulse Resp B/P Pulse Ox O2 Delivery O2 Flow Rate FiO2 02/22/17 15:20 67 20 110/55 97 Nasal Cannula 02/22/17 12:18 2 02/22/17 10:48 97.6 VS reviewed Orders Electrocardiogram (02/22/17 ) Electrocardiogram (02/22/17 10:58) Basic Metabolic Panel (Bmp) (02/22/17 10:58) Ckmb (Isoenzyme) Profile (02/22/17 10:58) Complete Blood Count With Diff (02/22/17 10:58) Magnesium (Mg) (02/22/17 10:58) Prothrombin Time / Inr (Pt) (02/22/17 10:58) Act Partial Throm Time (Ptt) (02/22/17 10:58) Troponin I (02/22/17 10:58) Chest, Single Ap (02/22/17 10:58) Ecg Monitoring (02/22/17 10:58) Bilateral Bp Monitoring (02/22/17 10:58) Iv Access Insert/Monitor (02/22/17 10:58) Oximetry (02/22/17 10:58) Oxygen Administration (02/22/17 10:58) Aspirin (Aspirin) (02/22/17 11:00) Morphine Inj (Morphine Inj) (02/22/17 11:00) Sodium Chloride 0.9% Flush (Ns Flush) (02/22/17 11:00) Nitroglycerin Sl (Nitrostat Sl) (02/22/17 11:00) Ct Pulmonary Angiogram (02/22/17 10:58) Heparin Infusion BRIAN.Q1H (02/22/17 14:34) Heparin Inj (Heparin Inj) (02/22/17 14:45) Heparin Inj (Heparin Inj) (02/22/17 20:45) Heparin Inj (Heparin Inj) (02/22/17 20:45) Heparin-D5w Inj (Heparin-D5w Inj) (02/22/17 14:45) Cbc No Diff, Includes Plts (02/25/17 06:00) Act Partial Throm Time (Ptt) (02/22/17 21:34) Occult Blood (Hemoccult) Stool (02/22/17 14:34) Iohexol 350 Inj (Omnipaque 350 Inj) (02/22/17 14:38) Admit Order (Ed Use Only) (02/22/17 16:06) Labs Laboratory Tests Test 02/22/17 02/22/17 11:00 13:10 White Blood Count 10.1 TH/MM3 Red Blood Count 5.73 MIL/MM3 Hemoglobin 15.9 GM/DL Hematocrit 45.7 % Mean Corpuscular Volume 79.8 FL Mean Corpuscular Hemoglobin 27.8 PG Mean Corpuscular Hemoglobin 34.8 % Concent Red Cell Distribution Width 14.2 % Platelet Count 303 TH/MM3 Mean Platelet Volume 8.7 FL Neutrophils (%) (Auto) 58.2 % Lymphocytes (%) (Auto) 28.8 % Monocytes (%) (Auto) 10.1 % Eosinophils (%) (Auto) 1.7 % Basophils (%) (Auto) 1.2 % Neutrophils # (Auto) 5.9 TH/MM3 Lymphocytes # (Auto) 2.9 TH/MM3 Monocytes # (Auto) 1.0 TH/MM3 Eosinophils # (Auto) 0.2 TH/MM3 Basophils # (Auto) 0.1 TH/MM3 CBC Comment DIFF FINAL Differential Comment Prothrombin Time 10.7 SEC Prothromb Time International 1.0 RATIO Ratio Activated Partial 26.8 SEC Thromboplast Time Sodium Level 138 MEQ/L Potassium Level 4.0 MEQ/L Chloride Level 106 MEQ/L Carbon Dioxide Level 22.9 MEQ/L Anion Gap 9 MEQ/L Blood Urea Nitrogen 25 MG/DL Creatinine 1.14 MG/DL Estimat Glomerular Filtration 65 ML/MIN Rate Random Glucose 93 MG/DL Calcium Level 9.4 MG/DL Magnesium Level 2.4 MG/DL Total Creatine Kinase 56 U/L Troponin I 0.06 NG/ML MDM Medical Decision Making Medical Screen Exam Complete: Yes Emergency Medical Condition: Yes Differential Diagnosis NSTEMI, unstable angina, coronary vasospasm, PE, PTX, aortic dissection, pericarditis, myocarditis, endocarditis, PNA, esophageal disease, aneurysm, musculoskeletal etiologies, anxiety, cocaine/sympathomimetic abuse Narrative Course CBC & BMP Diagram 02/22/17 11:00 02/22/17 13:10 Tn 0.06 EKG: sinus, rate 72, ST changes in V3/4 could reflect ischemic injury Last 24 hours Impressions Chest X-Ray 02/22/17 1058 Signed Impressions: Service Date/Time: Wednesday, February 22, 2017 10:56 - CONCLUSION: Bibasilar subsegmental atelectasis. Daniel Mcknight MD CT Angiography 02/22/17 1058 Signed Impressions: Service Date/Time: Wednesday, February 22, 2017 14:32 - CONCLUSION: 1. No evidence of pulmonary embolus. 2. Mild bilateral lower lobe bronchiectasis and atelectasis. 3. 4 mm nodular density in the right midlung. Recommend 6 month followup noncontrast chest CT. Denis De Jesus MD Pt will be admitted for plan for coronary catheterization tomorrow. 1500: minimal dyspnea, HOB positioned upright Heparin gtt started here. d/w Dr Simmons who requests NPO p MN, serial troponins and normal home meds. Diagnosis Primary Impression: CAD (coronary artery disease) Qualified Code: I25.10 - Coronary artery disease involving [place] heart, angina presence unspecified, unspecified vessel or lesion type Additional Impressions: Chest pain Qualified Code: I20.9 - Chest pain due to myocardial ischemia, unspecified ischemic chest pain type Mass of right lung Admitting Information Admitting Physician Requests: Admit Jean Rubin MD February 22, 2017 12:27
[2017-02-22 13:47] LABS: BICARBONATE 22.9 MEQ/L (21.0-32.0); MAGNESIUM 2.4 MG/DL (1.5-2.5)
[2017-02-22] MEDS ORDERED: IOHEXOL 350 MG/ML 10 ML VIAL (for RAD DIAG) IV ONE (14:38)
[2017-02-22] MEDS ORDERED: HEPARIN SODIUM - IV 10,000 UNITS/10 ML VIAL IV ONE (14:45)
[2017-02-22] MEDS ORDERED: HEPARIN-D5W INJ 250 ML IV SCH (14:45)
--- NOTE | 2017-02-22 15:15 | RADRPT ---
EXAM DATE/TIME: 02/22/2017 14:32 [place] COMPARISON: No previous studies available for comparison. INDICATIONS : Chest pain and shortness of breath, recent heart attack. IV CONTRAST: 70 cc Omnipaque 350 (iohexol) IV RADIATION DOSE: 19.29 CTDIvol (mGy) MEDICAL HISTORY : Cardiovascular disease. Hypertension. SURGICAL HISTORY : Appendectomy. ENCOUNTER: Initial ACUITY: 3 days PAIN SCALE: 4/10 LOCATION: Bilateral chest TECHNIQUE: Volumetric scanning of the chest was performed using a pulmonary embolism protocol MIP images were re constructed. Using automated exposure control and adjustment of the mA and/or kV according to patien t size, radiation dose was kept as low as reasonably achievable to obtain optimal diagnostic quality images. FINDINGS: PULMONARY ARTERIES: No filling defects are seen in the pulmonary arteries through the segmental level. LUNGS: Mild bilateral lower lobe cylindrical bronchiectasis. Bilateral inferior lower lobe atelectasis. 4 mm nodular density in the right middle lobe on image #67. PLEURAE: There is no pleural thickening or pleural effusion. MEDIASTINUM: Extensive coronary artery calcification. MUSCULOSKELETAL: Within normal limits for patient age. MISCELLANEOUS: The visualized upper abdominal organs demonstrate no acute abnormality. CONCLUSION: 1. No evidence of pulmonary embolus. 2. Mild bilateral lower lobe bronchiectasis and atelectasis. 3. 4 mm nodular density in the right midlung. Recommend 6 month followup noncontrast chest CT. Denis De Jesus MD on February 22, 2017 at 15:07 Board Certified Radiologist. This report was verified electronically.
--- NOTE | 2017-02-22 15:53 | EKG ---
Date Performed: 02/22/2017 Time Performed: 10:55:35 PTAGE: 61 years EKG: Sinus rhythm ST DEVIATION AND MODERATE T-WAVE ABNORMALITY, CONSIDER ANTERIOR ISCHEMIA Compared to prior tracing n o significant change ABNORMAL ECG PREVIOUS TRACING : 01/13/2017 17.33 DOCTOR: Kayla Mancilla Interpretating Date/Time 02/22/2017 15:49:12
--- NOTE | 2017-02-22 16:01 | HHI.HP ---
HPI Service [facility] Primary Care Physician No Primary Care Physician Admission Diagnosis Diagnoses: Chief Complaint: chest pain, dyspnea Travel History International Travel<30 Days: No Contact w/Intl Traveler <30 Da: No Traveled to Known Affected Are: No History of Present Illness 61-year-old male with history of recent AR with CAD s/p LAD stent placed 01/12/17 , CHF with EF 25-30% on Echo 01/12/17, HTN, HLD, presents with worsening chest pain and dyspnea since his cardiac catheterization 6 weeks ago. The patient locates his chest pain diffusely across the anterior chest with radiation into the bilateral neck/jaw, and occasional up to the right temporal area, described as moderate 5/10 chest pressure with occasional sharp pains, associated with severe shortness of breath, nausea, vomiting x2, and diaphoresis. He reports severe dyspnea with exertion, only able to walk a few steps around his home, then is very dyspneic, now taking much longer to recover and catch his breath. He also reports noticing leg swelling over the past 2 days. Denies any orthopnea or weight gain. He has been compliant with his medications, including Effient. He went to his medical billing and coding specialist's office yesterday for treadmill stress test and the patient was unable to tolerate it. He then returned to Dr. Simmons 's office today who sent him to the ER. Upon arrival, Troponin 0.06, EKG with some minimal ST depression in the anterior leads. CT-PA negative for PE. ER MD already discussed with Dr. Simmons who recommends heparin drip and NPO after midnight for cardiac catheterization tomorrow. Review of Systems Except as stated in HPI: all other systems reviewed are Neg Other 12 systems reviewed and are negative except for the ones mentioned in the History of present illness Past Family Social History Past Medical History CAD CHF Hypertension Hyperlipidemia GERD Nephrolithiasis Arthritis Past Surgical History Cardiac catheterization with stent to LAD 01/12/17 Appendectomy Cataract surgery Cystoscopy Lithotripsy Knee surgeries, 3 on the right, 2 on the left Shoulder surgery Reported Medications Lasix (Furosemide) 20 Mg Tab 20 Mg PO BID Aldactone (Spironolactone) 50 Mg Tab 50 Mg PO BIDPC Effient (Prasugrel) 10 Mg Tab 10 Mg PO DAILY Aspirin 81 Mg Chew 162 Mg CHEW DAILY Lipitor (Atorvastatin Calcium) 10 Mg Tab 40 Mg PO HS Coreg (Carvedilol) 6.25 Mg Tab 6.25 Mg PO BID Ramipril 5 Mg Cap 5 Mg PO BID Allergies: Coded Allergies: No Known Allergies (Unverified , 02/22/17) Active Ordered Medications Current Medications Medications (Trade) Dose Ordered Sig/Lenora Route Start Time Stop Time Status Last Admin (NS Flush) 2 ml UNSCH PRN IVF 02/22/17 11:00 (Heparin Inj) 5,000 units UNSCH PRN IV 02/22/17 20:45 Heparin Sodium (Porcine) 2500 units 2,500 units UNSCH PRN IV 02/22/17 20:45 (Heparin-D5W Inj) 250 ml @ 0 mls/hr TITRATE IV 02/22/17 14:45 02/22/17 15:19 Family History Mother with peripheral vascular disease, CABG age 54, with brain aneurysm Father with CAD, 7 MIs, first AR age 27, from heart disease 2 adult children healthy Social History Denies any tobacco use. Very rare alcohol use, 1-2x/year Denies any illicit drug use Lives at home with his Physical Exam Vital Signs Vital Signs Date Time Temp Pulse Resp B/P Pulse Ox O2 Delivery O2 Flow Rate FiO2 02/22/17 15:20 67 20 110/55 97 Nasal Cannula 02/22/17 12:18 69 18 116/56 97 Nasal Cannula 2 02/22/17 12:00 16 02/22/17 11:25 20 02/22/17 11:23 71 28 117/58 96 Nasal Cannula 3 02/22/17 11:01 100 Nasal Cannula 2 02/22/17 11:01 24 98 Room Air 02/22/17 10:54 98 Room Air 02/22/17 10:48 97.6 72 24 118/66 99 Physical Exam GENERAL: Well-nourished, well-developed male patient in NAD. SKIN: Warm and dry. No rash. HEAD: Normocephalic. Atraumatic. EYES: Pupils equal and round. No scleral icterus. No injection or drainage. ENT: No nasal bleeding or discharge. Mucous membranes pink and moist. NECK: Supple. Trachea midline. +JVD. CARDIOVASCULAR: Regular rate and rhythm. S1, S2 noted. No murmur appreciated. RESPIRATORY: No accessory muscle use. Clear to auscultation. Breath sounds equal bilaterally. GASTROINTESTINAL: Abdomen soft, non-tender, nondistended. Normoactive bowel sounds x4. MUSCULOSKELETAL: No obvious deformities. Extremities without clubbing, cyanosis , or edema. NEUROLOGICAL: Awake and alert. No obvious cranial nerve deficits. Motor grossly within normal limits. Normal speech. PSYCHIATRIC: Slightly anxious mood; insight and judgment normal. Laboratory Laboratory Tests Test 02/22/17 02/22/17 11:00 13:10 White Blood Count 10.1 Red Blood Count 5.73 Hemoglobin 15.9 Hematocrit 45.7 Mean Corpuscular Volume 79.8 Mean Corpuscular Hemoglobin 27.8 Mean Corpuscular Hemoglobin 34.8 Concent Red Cell Distribution Width 14.2 Platelet Count 303 Mean Platelet Volume 8.7 Neutrophils (%) (Auto) 58.2 Lymphocytes (%) (Auto) 28.8 Monocytes (%) (Auto) 10.1 Eosinophils (%) (Auto) 1.7 Basophils (%) (Auto) 1.2 Neutrophils # (Auto) 5.9 Lymphocytes # (Auto) 2.9 Monocytes # (Auto) 1.0 Eosinophils # (Auto) 0.2 Basophils # (Auto) 0.1 CBC Comment DIFF FINAL Differential Comment Prothrombin Time 10.7 Prothromb Time International 1.0 Ratio Activated Partial 26.8 Thromboplast Time Sodium Level 138 Potassium Level 4.0 Chloride Level 106 Carbon Dioxide Level 22.9 Anion Gap 9 Blood Urea Nitrogen 25 Creatinine 1.14 Estimat Glomerular Filtration 65 Rate Random Glucose 93 Calcium Level 9.4 Magnesium Level 2.4 Total Creatine Kinase 56 Troponin I 0.06 Result Diagram: 02/22/17 1100 02/22/17 1310 Imaging Last Impressions Chest X-Ray 02/22/17 1058 Signed Impressions: Service Date/Time: Wednesday, February 22, 2017 10:56 - CONCLUSION: Bibasilar subsegmental atelectasis. Daniel Mcknight MD CT Angiography 02/22/17 1058 Signed Impressions: Service Date/Time: Wednesday, February 22, 2017 14:32 - CONCLUSION: 1. No evidence of pulmonary embolus. 2. Mild bilateral lower lobe bronchiectasis and atelectasis. 3. 4 mm nodular density in the right midlung. Recommend 6 month followup noncontrast chest CT. Denis De Jesus MD Assessment and Plan Problem List: (1) NSTEMI (non-ST elevated myocardial infarction) ICD Code: I21.4 Status: Acute (2) Chest pain ICD Code: R07.9 Status: Acute (3) Dyspnea ICD Code: R06.00 Status: Acute (4) CHF (congestive heart failure) ICD Code: I50.9 Status: Acute (5) CAD (coronary artery disease) ICD Code: I25.10 Status: Acute Assessment and Plan 61-year-old male with history of recent AR with CAD s/p LAD stent placed 01/12/17 , CHF with EF 25-30% on Echo 01/12/17, HTN, HLD, presents with worsening chest pain and dyspnea since his cardiac catheterization 6 weeks ago. NSTEMI: presented with chest pain/dyspnea, hx of CAD s/p LAD stent 01/12/[address] Simmons. CXR imaging reviewed, unremarkable. CT-PA negative for PE. Initial troponin 0.06, will trend serial cardiac enzymes/EKG. Sent to ER by medical billing and coding specialist Dr. Simmons who discussed with ER MD, consult placed. Started on Heparin gtt. NPO after midnight, cardiac catheterization planned for tomorrow, admit to [facility]. S/p SL nitro and full strength aspirin in ER. Continue statin, ELYSSA , BB. IV morphine prn. Dyspnea with hx of Systolic CHF: suspect related to above. Echo 01/12/17 showed EF 25-30%; akinesis of anteroseptal, anterior, and apical myocardium. Check BNP and limited echocardiogram. Continue patient's Lasix 20mg bid, ELYSSA, BB, statin, spironolactone. Right Midlung Nodule: seen on Chest CT as above, recommends 6month f/up with noncontrast CT, discussed with the patient. Hypertension/Hyperlipidemia: chronic, stable, continue home medications including Coreg, Ramipril, Lipitor. Monitor BP, adjust antihypertensives as needed. DVT Prophylaxis: on Heparin drip Written by Ethel Shelton, acting as scribe for Dr. Lai on 02/22/17 at 16:52. This note was transcribed by scribe []. I, Dr. Daniel Lai personally performed the history, physical exam, and medical decision making; and confirmed the accuracy of the information in the transcribed note. Authenticated by Dr. Daniel Lai on 02/22/17 at 16:32. Code Status Full code Discussed Condition With Patient, ER MD Problem Qualifiers (1) Chest pain: Qualified Code: I20.9 - Chest pain due to myocardial ischemia, unspecified ischemic chest pain type (2) CAD (coronary artery disease): Qualified Code: I25.10 - Coronary artery disease involving [place] heart, angina presence unspecified, unspecified vessel or lesion type Ethel Shelton PA-C February 22, 2017 16:01 Daniel Lai MD February 22, 2017 19:36
[2017-02-22] MEDS ORDERED: ACETAMINOPHEN 325 MG TAB PO PRN (16:30)
[2017-02-22] MEDS ORDERED: ONDANSETRON HCL 4 MG/2 ML VIAL IVP PRN (16:30)
[2017-02-22] MEDS ORDERED: DOCUSATE SODIUM 100 MG CAP PO PRN (16:30)
[2017-02-22] MEDS ORDERED: NALOXONE HCL 0.4 MG/ML AMP IV PRN (16:30)
[2017-02-22] MEDS: ACETAMINOPHEN/HYDROcodone 325 MG/5 MG TAB PO PRN (16:49)
[2017-02-22] MEDS ORDERED: NITROGLYCERIN 0.4 MG SL 25 TABS/BTL SL PRN (17:00)
[2017-02-22] MEDS: SPIRONOLACTONE 50 MG TAB PO SCH (18:11)
[2017-02-22] MEDS: SODIUM CHLORIDE 0.9% FLUSH 10 ML FLUSH IV FLUSH SCH (20:37)
[2017-02-22] MEDS: ATORVASTATIN 40 MG TAB PO SCH (20:37)
[2017-02-22] MEDS: RAMIPRIL 5 MG CAP PO SCH (20:38)
[2017-02-22] MEDS: CARVEDILOL 6.25 MG TAB PO SCH (20:38)
[2017-02-22] MEDS: FUROSEMIDE 20 MG TAB PO SCH (20:38)
[2017-02-22] MEDS ORDERED: HEPARIN SODIUM - IV 10,000 UNITS/10 ML VIAL IV PRN ×2 (20:45)
[2017-02-22 22:05] LABS: APTT (PATIENT) 37.8 SEC (24.3-30.1)
--- NOTE | 2017-02-22 23:00 | ECHLIM ---
Study Study Date:02/22/2017 STUDY CONCLUSIONS SUMMARY - Left ventricle: Wall thickness was increased in a pattern of mild LVH. Systolic function was mildly to moderately reduced. The estimated ejection fraction was in the range of 40% to 45%. - Pericardium, extracardiac: There was no pericardial effusion. If LV function is below 40, please consider prescribing an ACEI or ARB or document rationale for non-use. PROCEDURE DATA Procedure: Transthoracic echocardiography. Image quality was suboptimal. Scanning was performed from the parasternal and apical acoustic windows. Study completion: The patient tolerated the procedure well. Transthoracic echocardiography. M-mode, limited 2D, limited spectral Doppler, and color Doppler. Height: Height: 72in. Weight: Weight: 224.5lb. Body mass index: BMI: 30.5kg/m^2. Body surface area: BSA: 2.24m^2. CARDIAC ANATOMY LEFT VENTRICLE: There was anteroseptal hypokinesis. Wall thickness was increased in a pattern of mild LVH. Systolic function was mildly to moderately reduced. The estimated ejection fraction was in the range of 40% to 45%. PERICARDIUM: There was no pericardial effusion. Patient weight: 224.5lb _Ejection fraction:_ 65-75% _Fractional shortening:_ 32% up to 5Kg 5-11.5Kg 11.6-22.9Kg 23-45Kg 45-57Kg Aortic Root 7-13 <17 13-22 17-27 17-27 LA diam 6-13 <23 24-38 33-47 37-40 RVID 10-17 7-15 7-15 7-18 8-17 LVIDd 12-22 <32 24-38 33-47 37-40 LVPW 2-4 3-6 5-7 6-8 7-8 IVS 2-4 3-6 5-7 6-8 7-8 BASIC MEASUREMENTS ADULT NORMAL Left ventricle Volume, ED, MOD, 1-plane 153 ml Volume, ES, MOD, 1-plane 94 ml Ejection fraction, MOD, 1-plane 39 % Stroke volume, MOD, 1-plane 59 ml Volume index, ED, MOD, 1-plane 68 ml/m^2 Volume index, ES, MOD, 1-plane 42 ml/m^2 Stroke index, MOD, 1-plane 26.3 ml/m^2 BASIC MEASUREMENTS ADULT NORMAL Left ventricle LV internal dimension, ED *79.3 mm 37-56 LV internal dimension, ES 63.6 mm Fractional shortening *20 % 29-45 LV posterior wall, ED *13.8 mm 6-11 Septal/posterior wall ratio, ED 1.01 Relative wall thickness, ED 0.35 <0.45 Volume, ED, Teichholz 338 ml Volume, ES, Teichholz 206 ml Ejection fraction, Teichholz *39.1 % 64-83 Stroke volume, Teichholz 132 ml Volume index, ED, Teichholz 151 ml/m^2 Volume index, ES, Teichholz 92 ml/m^2 Stroke index, Teichholz 58.9 ml/m^2 Wall mass 607.8 g Wall mass index 271.3 g/m^2 Mass/height 3.32 g/cm Ventricular septum Septal thickness, ED 14 mm LEGEND: Mean values are shown as u=mean value. Asterisk (*) fenton values outside specified normal range. Prepared and signed by Jacquelyn Nath [id number]
[2017-02-22] MEDS: MORPHINE SULFATE 4 MG/ML INJ IV PRN (23:30)
[2017-02-23] VITALS (33 sets, daily range): BP systolic 91–133; BP diastolic 36–55; PULSE 5–79; RESP 18; TEMP 97.6–98.1; O2SAT 92–100
--- NOTE | 2017-02-23 05:54 | EKG ---
Date Performed: 02/22/2017 Time Performed: 16:00:06 PTAGE: 61 years EKG: Sinus rhythm MODERATE T-WAVE ABNORMALITY, CONSIDER ANTERIOR ISCHEMIA ABNORMAL ECG PREVIOUS TRACING : 02/22/2017 10.55 Compared to prior tracing no significant change DOCTOR: Chelsea Bundy Interpretating Date/Time 02/23/2017 05:53:17
[2017-02-23 06:16] LABS: AUTOMATED NEUTROPHIL # 5.2 TH/MM3 (1.8-7.7); BASOPHIL # 0.1 TH/MM3 (0-0.2); BASOPHIL % 1.1 % (0.0-2.0); EOSINOPHIL # 0.3 TH/MM3 (0-0.4); HEMO FLAGS DIFF FINAL; LYMPH % 28.2 % (9.0-44.0); LYMPHOCYTE # 2.5 TH/MM3 (1.0-4.8); MEAN CELL VOLUME 80.9 FL (80.0-100.0); MEAN CORPUSCULAR HEMOGLOBIN 27.3 PG (27.0-34.0); MEAN CORPUSCULAR HGB CONC 33.7 % (32.0-36.0); MONO % 8.2 % (0.0-8.0); NEUT % 59.5 % (16.0-70.0); PLATELET COUNT 246 TH/MM3 (150-450); RED BLOOD COUNT 4.82 MIL/MM3 (4.50-5.90); RED CELL DISTRIBUTION WIDTH 14.3 % (11.6-17.2); WHITE BLOOD COUNT 8.7 TH/MM3 (4.0-11.0)
[2017-02-23 06:29] LABS: APTT (PATIENT) 40.4 SEC (24.3-30.1)
[2017-02-23 06:35] LABS: POTASSIUM 3.7 MEQ/L (3.5-5.1)
[2017-02-23] MEDS: RAMIPRIL 5 MG CAP PO SCH ×3 (09:00→20:29)
[2017-02-23] MEDS: CARVEDILOL 6.25 MG TAB PO SCH ×2 (09:04→20:30)
[2017-02-23] MEDS: SPIRONOLACTONE 50 MG TAB PO SCH ×2 (09:04→18:00)
[2017-02-23] MEDS: SODIUM CHLORIDE 0.9% FLUSH 10 ML FLUSH IV FLUSH SCH ×2 (09:05→20:30)
[2017-02-23] MEDS: FUROSEMIDE 20 MG TAB PO SCH ×2 (09:05→20:30)
--- NOTE | 2017-02-23 09:39 | HHI.PR ---
Subjective Remarks Follow-up non-ST elevation MT 02/23/17-patient seen and examined, stated he had 2 episodes of chest pain last night however this morning only complains of chest tightness. Currently nothing by mouth Objective Vitals Vital Signs Date Time Temp Pulse Resp B/P Pulse Ox O2 Delivery O2 Flow Rate FiO2 02/23/17 07:21 97.8 64 18 96/50 99 02/23/17 06:00 5 02/23/17 05:00 58 02/23/17 04:00 97.6 59 18 91/44 97 02/23/17 04:00 55 02/23/17 03:00 60 02/23/17 02:39 97 Nasal Cannula 2.00 02/23/17 02:00 54 02/23/17 01:00 56 02/23/17 00:00 97.7 60 18 101/48 96 02/23/17 00:00 66 02/22/17 23:00 72 02/22/17 22:00 70 02/22/17 21:00 66 02/22/17 20:00 97.8 68 18 100/46 96 02/22/17 20:00 66 02/22/17 18:13 18 02/22/17 17:35 96 Nasal Cannula 2.00 02/22/17 16:31 98.1 89 16 100/51 97 Nasal Cannula 02/22/17 15:20 67 20 110/55 97 Nasal Cannula 02/22/17 12:18 69 18 116/56 97 Nasal Cannula 2 02/22/17 12:00 16 02/22/17 11:25 20 02/22/17 11:23 71 28 117/58 96 Nasal Cannula 3 02/22/17 11:01 100 Nasal Cannula 2 02/22/17 11:01 24 98 Room Air 02/22/17 10:54 98 Room Air 02/22/17 10:48 97.6 72 24 118/66 99 I/O 02/22/17 02/22/17 02/22/17 02/23/17 02/23/17 02/23/17 07:00 15:00 23:00 07:00 15:00 23:00 Intake Total 240 ml Output Total 800 ml Balance -560 ml Intake Oral 240 ml Output Urine Total 800 ml Result Diagram: 02/23/17 0514 02/23/17 0514 Imaging Last Impressions Chest X-Ray 02/22/17 1058 Signed Impressions: Service Date/Time: Wednesday, February 22, 2017 10:56 - CONCLUSION: Bibasilar subsegmental atelectasis. Daniel Mcknight MD CT Angiography 02/22/17 1058 Signed Impressions: Service Date/Time: Wednesday, February 22, 2017 14:32 - CONCLUSION: 1. No evidence of pulmonary embolus. 2. Mild bilateral lower lobe bronchiectasis and atelectasis. 3. 4 mm nodular density in the right midlung. Recommend 6 month followup noncontrast chest CT. Denis De Jesus MD Objective Remarks GENERAL: NAD SKIN: Warm and dry. HEAD: Normocephalic. EYES: No scleral icterus. No injection or drainage. NECK: Supple, trachea midline. No JVD or lymphadenopathy. CARDIOVASCULAR: Regular rate and rhythm without murmurs, gallops, or rubs. RESPIRATORY: Breath sounds equal bilaterally. No accessory muscle use. GASTROINTESTINAL: Abdomen soft, non-tender, nondistended. MUSCULOSKELETAL: No cyanosis, or edema. BACK: Nontender without obvious deformity. No CVA tenderness. A/P Problem List: (1) NSTEMI (non-ST elevated myocardial infarction) ICD Code: I21.4 Status: Acute (2) Chest pain ICD Code: R07.9 Status: Acute (3) Dyspnea ICD Code: R06.00 Status: Acute (4) CHF (congestive heart failure) ICD Code: I50.9 Status: Chronic (5) CAD (coronary artery disease) ICD Code: I25.10 Status: Chronic Assessment and Plan 61-year-old man with NSTEMI: presented with chest pain/dyspnea, hx of CAD s/p LAD stent 01/12/[address] Simmons. CXR imaging reviewed, unremarkable. CT-PA negative for PE. Cardiac enzymes unremarkable. Plan for left heart catheterization today . Continue with nothing by mouth, Heparin gtt, nitroglycerin, statin, ELYSSA, BB. IV morphine prn. 2-D echo with EF 40-45%. Dyspnea with hx of Systolic CHF: suspect related to above. Echo 01/12/17 showed EF 25-30%; akinesis of anteroseptal, anterior, and apical myocardium. Repeat 2- D echo with EF 40-45%. BNP mildly elevated Continue patient's Lasix 20mg bid, ELYSSA, BB, statin, spironolactone. Right Midlung Nodule: seen on Chest CT as above, recommends 6month f/up with noncontrast CT, Hypertension/Hyperlipidemia: chronic, stable, continue home medications including Coreg, Ramipril, Lipitor. Monitor BP, adjust antihypertensives as needed. DVT Prophylaxis: on Heparin drip Problem Qualifiers (1) Chest pain: Qualified Code: I20.9 - Chest pain due to myocardial ischemia, unspecified ischemic chest pain type (2) CAD (coronary artery disease): Qualified Code: I25.10 - Coronary artery disease involving [place] heart, angina presence unspecified, unspecified vessel or lesion type Daniel Lai MD February 23, 2017 09:39
[2017-02-23 13:33] LABS: APTT (PATIENT) 40.5 SEC (24.3-30.1)
[2017-02-23] MEDS ORDERED: IOHEXOL 350 MG/ML 100 ML BTL (for Cath Lab) OTHER ONE ×2 (13:50→15:00)
[2017-02-23] MEDS ORDERED: IOHEXOL 350 MG/ML 50 ML BTL (for Cath Lab) OTHER ONE (13:50)
[2017-02-23] MEDS ORDERED: HEPARIN-NS/PF INJ 500 ML ONE (14:04)
[2017-02-23] MEDS ORDERED: MIDAZOLAM HCL 2 MG/2 ML VIAL ONE (14:20)
--- NOTE | 2017-02-23 14:40 | MB ---
cc: MONTRELL MCCARTNEY M.D. DATE OF CONSULTATION: 02/23/2017 HISTORY OF PRESENT ILLNESS Grant is a very pleasant 61-year-old gentleman who presented with a STEMI approximately five weeks ago and underwent PCI x2 to the proximal and mid LAD. He had cardiomyopathy at that time. Ejection fraction was 28% by echo. He had severe chest pain and shortness of breath the following day and underwent repeat cath which showed patent stents in the LAD, otherwise no significant obstructive coronary disease. We did an echo on him last week, EF was 45-50%. A nuclear stress test showed a large fixed defect with moderate reversibility in the anteroapical wall, EF 35%, severe hypokinesis of the anteroapical wall. I instructed the patient to go to the ER yesterday as he was complaining of severe chest pain and dyspnea. He underwent a CT of the chest in the ER which showed no pulmonary embolus. Cardiac enzymes were negative. There were no acute EKG changes. The patient still complains of chest pain. He otherwise denies any fevers, chills, cough, GI or bleeding, PND or orthopnea. PAST MEDICAL HISTORY 1. As per history of present illness. 2. Hyperlipidemia. 3. Cardiomyopathy. 4. GERD. 5. Nephrolithiasis. 6. Appendectomy. 7. Cataract surgery. SOCIAL HISTORY Denies tobacco or alcohol use. ALLERGIES None. MEDICATIONS Medications prior to admission: 1. Lasix 20, b.i.d. 2. Aldactone 50, b.i.d. 3. Effient 10 mg daily. 4. Aspirin 162, daily. 5. Lipitor 10, h.s. 6. Coreg 6.25, b.i.d. 7. Ramipril 5, b.i.d. His medications in the hospital: 1. Atorvastatin 40, h.s. 2. Carvedilol 6.25, b.i.d. 3. Lasix 20, b.i.d. 4. Ramipril 5, b.i.d. 5. IV heparin. 6. Aldactone 50, b.i.d. 7. Docusate p.r.n. PHYSICAL EXAMINATION VITAL SIGNS: Blood pressure 105/49, pulse 58, temperature 97.6, sats 97% on four liters nasal cannula. GENERAL: He is alert and oriented x3, in no acute distress. NECK: Supple. No JVD. No bruit. CARDIOVASCULAR: S1, S2. No murmurs, rubs or gallops. LUNGS: Clear to auscultation bilaterally. ABDOMEN: Soft, nontender, nondistended with positive bowel sounds. EXTREMITIES: No lower extremity edema. LABORATORY White count 8.7, hemoglobin 13.1, hematocrit 39.0, platelet count 246. Troponin is 0.06 followed by 0.02 and 0.04. BNP is 147. Sodium 138, potassium 4.0, chloride 106, bicarb 22.9, BUN 25, creatinine 1.14, magnesium 2.4. INR 1.0, PTT 40.5. IMAGING CT angio of the chest: No evidence of pulmonary embolus, mild bilateral lower lobe bronchiectasis and atelectasis, 4 mm nodular density in the right mid lung. Recommend six-month follow-up with contrast chest CT. Chest x-ray: Bibasilar subsegmental atelectasis. EKG EKG shows biphasic T-waves, V1, V2, V3, V4, possible anterior ischemia. DIAGNOSIS 1. Unstable angina. 2. [place] Cardiovascular Society class IV angina. 3. [place] Heart Association class III congestive heart failure. 4. Cardiomyopathy. 5. Hyperlipidemia. 6. Abnormal EKG. 7. Non-ST elevation myocardial infarction. 8. Decompensated congestive heart failure. DISCUSSION At this point in time it is indeterminate whether the patient's symptoms are due to an ischemic etiology. I do think right heart catheterization and left heart catheterization are medically necessary due to [place] Cardiovascular Society class III angina, cardiomyopathy and [place] Heart Association class III congestive heart failure, decompensated congestive heart failure with elevated BNP, elevated troponin, non-ST elevation myocardial infarction, history or coronary disease, and multiple cardiac risk factors. I explained to the patient the risk of cath and PCI is a 5-10% chance of , stroke, heart attack, need for bypass surgery, need for surgery, need for dialysis, need for blood transfusion, bleeding, infection, anaphylaxis and arrhythmia. The patient understands and agrees to proceed under the current risks. Further recommendations based on catheterization findings. Otherwise continue aspirin, Effient, Coreg, Altace, Aldactone and Lasix. Montrell W. Troy, MD [facility]/ELINA /1:55 PM /2:20 PM
[2017-02-23] MEDS ORDERED: HEPARIN SODIUM - IV 10,000 UNITS/10 ML VIAL ONE (14:43)
[2017-02-23] MEDS ORDERED: ADENOSINE STRESS TEST INJ 90 MG/30 ML VIAL ONE (14:47)
[2017-02-23] MEDS ORDERED: TIROFIBAN INFUSION INJ 250 ML IV ONE (15:03)
[2017-02-23] MEDS ORDERED: PRASUGREL 10 MG TAB ONE (15:13)
[2017-02-23] MEDS ORDERED: TIROFIBAN INFUSION INJ 250 ML IV SCH (15:13)
[2017-02-23] MEDS ORDERED: SODIUM CHLORIDE 0.9% FLUSH 10 ML FLUSH PRN (15:15)
[2017-02-23] MEDS ORDERED: MISC INFORMATION XX ONE (15:15)
--- NOTE | 2017-02-23 15:25 | CATHPROC ---
[email or web address] HIS Report Study Information Study Number Scheduled Start Study Start 0905-17 02/23/2017 Feb 23 2017 1:58PM Referring Institution Admit Source Facility Department 1 Other [facility] - Nail Tech Physician and Clinical Staff Initial Montrell Wasserman Ms Sql Server Developer Sony Morales,BALTAZAR Other cathlab, cathlab Recorder Lorena Loaiza,RT(R) TECH2 Scrub Yessenia Medel,RT(R) Procedures Performed Procedure Location (Site) Vessel Name Angiogram LV LV Ventricle Coronary Angiograms LCA Left Coronary Coronary Angiograms RCA Right Coronary Stent LAD Mid Left Coronary Equipment Time Nursing Coordinator Description Size Mfg Part Number Used/Scraped CATHETER, FR5 SWAN MONA 14:25 [employer] FR 5 [id number] Used MONITOR TRANSDUCER, TRUWAVE 14:06 SAGE SRIVASTAVA * [id number] Used W/STOCKCOCK 14:06 Cheers In INDUSTRIES PACK, CCL CUSTOM * [id number] Used 14:06 Cheers In PACER PEN, SKIN DUAL W/ RULER * [id number] Used [id number] 15:00 MED[employer] STENT, 3.0 9 INTEGRITY 3.0 9 Used *[id number] 15:01 [employer]Page MEDICAL 30 MALENA INDEFLATOR Used *[id number] 14:24 [employer]Page MEDICAL SHEATH, FR5.5 PRELUDE 11CM FR 5 [id number] Used [id number] 14:43 [employer]Page MEDICAL SHEATH, FR6.5 PRELUDE 23CM FR 6.5 Used [id number] 14:06 [employer]Page MEDICAL WIRE, 3MMJ .035 180CM 180CM [id number] Used [id number] 14:06 NAMIC MANIFOLD, 4 PORT * Used *[id number] 14:06 NYCOMED OMNIPAQUE, 350 MG, 100ML 100ML [id number] Used 14:06 BYRD MEDICAL BLANKET,WARM AIR CCL * [id number] Used 14:06 TERUMO MEDICAL SHEATH, FR4 TERUMO (10CM) FR 4 [id number] Used 14:46 VOLCANO PRIME WIRE, VERRATA 185CM 185CM [id number] Used Equipment Model, Serial, Lot Number and Expiration Data Description Model Number Serial Number Lot Number Expiration Date STENT, 3.0 9 INTEGRITY [id number] 11-10-2017 History: Current Medications Medication Dosage/Unit Route Frequency Last Date/Time Taken ASA EFFIENT Statins (any) Beta Katie History: Allergies Allergy Reaction No Known Allergies History: Risk Factors Family History of Hypertension Dyslipidemia Previous IA Previous Heart Failure Premature CAD Yes Yes Yes Yes Yes Prior Valve Prior PCI Prior PCIDate Prior CABG Surgery No Yes 01/12/2017 No Cerebrovascular Peripheral Artery Chronic Lung On Dialysis Diabetes Disease Disease Disease No No No No No History: Symptoms/Diagnosis Selection Items Chest pain History: CV Disease Selection Items Known CAD History: Stress Tests Stress or Imaging Studies Performed Yes Standard Exercise Stress Test No Stress Echo No Stress Test SPECT Stress Test SPECT Result Stress Test SPECT Ischemia Risk/Extent Yes Positive High Stress Test CMR No Cardiac CTA Coronary Calcium Score No No History: Other Disease Selection Items CAD CHF HTN History: Other Current Smoker No Labs Hgb (g/dl) Hct (%) WBC (l/cumm) Platelets (thousands) 12.00-18.00 37.00-55.00 4.80-10.80 140.00-450.00 13.0 39 8.7 246 Glucose (mg/dl) BUN (mg/dl) Creatinine (mg/dl) BUN:Creatinine (1:x) 60.00-110.00 8.00-20.00 0.10-9.00 10.00-20.00 103 29 1.1 26.4 Na (meq/l) K (meq/l) 138.00-146.00 3.80-5.10 139 3.7 Troponin I (ng/ml) CPK (u/l) CPK-MB (ng/ML) 0.40-2.30 37.00-289.00 0.00-7.00 0.04 64 Not Drawn Medication Medication Total Dose (Bolus/Oral) Medication Total Dosage/Unit 1% XYLOCAINE 20 mL AGGRASTAT BOLUS 50 mL EFFIENT 10 mg HEPARIN 7200 units VERSED 1 mg Medications (Bolus/Oral) Medication Time Given Dosage/Unit Administered By Reason VERSED 02/23/2017 2:21:13 PM 1 mg Sony Morales 1 mg VERSED given in lab by Sony Morales RN in Right Antecubital via Peripheral IV. 1% XYLOCAINE 02/23/2017 2:21:39 PM 20 mL Montrell Simmons 20 mL 1% XYLOCAINE given in lab by Montrell Simmons in Right Groin via Subcutaneous. HEPARIN 02/23/2017 2:44:16 PM 7200 units Sony Morales 7200 units HEPARIN given in lab by Sony Morales RN in Right Antecubital via Peripheral IV. AGGRASTAT BOLUS 02/23/2017 3:08:30 PM 50 mL Sony Morales 50 mL AGGRASTAT BOLUS given in lab by Sony Moralse RN in Right Antecubital via Peripheral IV. EFFIENT 02/23/2017 3:13:52 PM 10 mg Sony Morales As per physicians ve rbal order 10 mg EFFIENT given in lab by Sony Morales RN via Oral. Reason: As per physicians verbal order. Medication (Drip) Medication Time Given Dosage/Unit Concentration/Unit Diluent (ml) Solutio n AGGRASTAT DRIP 02/23/2017 3:10:50 PM 0.145 mcg/kg/min 12.5 mg 250 NaCl .9 0.145 mcg/kg/min AGGRASTAT DRIP given in lab by Sony Morales RN in Right Antecubital via Periphera l IV. Pump/Drip Flow = 18 ml/hr using NaCl .9 with a concentration of 12.5 mg in 250 ml. IV Solutions 02/23/2017 1:58:49 PM 0 mL (IV) NaCl .9 Patient arrived on IV Solutions in Right Antecubital via Peripheral IV. Pump/Drip Flow = 20 ml/hr usi ng NaCl .9. Initial Case Assessment Cardiovascular HR Rhythm NIBP Chest Pain 57 sr 115/62 0 Edema Present Skin color Skin None Normal Warm Dry Circulatory - Right Pulses Dorsalis Pedis Femoral 3 3 Scale (0,1,2,3,4,d) Circulatory - Left Pulses Dorsalis Pedis Femoral 3 3 Scale (0,1,2,3,4,d) Neurological State Oriented to time-place- Alert Moves all extremities person Respiration - General Respiration Rate SpO2 (%) (B/min) 18 98 Final Case Assessment Cardiovascular HR Rhythm NIBP Chest Pain 62 sr 120/69 0 Edema Present Skin color Skin None Normal Warm Dry Final Case Assessment Cardiovascular HR Rhythm NIBP Chest Pain 64 sr 117/66 0 Edema Present Skin color Skin None Normal Warm Dry Circulatory - Right Pulses Dorsalis Pedis Femoral 3 3 Scale (0,1,2,3,4,d) Circulatory - Left Pulses Dorsalis Pedis Femoral 3 3 Scale (0,1,2,3,4,d) Neurological State Oriented to time-place- Alert Moves all extremities person Respiration - General Respiration Rate SpO2 (%) (B/min) 18 99 Chronological Log Time Study Chronological Log 13:50:40 Patient arrived via Bed. 13:58:16 Patient Name, D.O.B, / Armband Verified By R.N. 13:58:17 Pre-op and post- op instructions given; patient acknowledges understanding of instructions. 13:58:20 Presedation assessment performed by Nail Tech RN. 13:58:22 Patient has been NPO for More than 6Hrs. 13:58:23 Skin Breakdown-none per patient 13:58:24 Patient Warmer Placed on the Table. 13:58:26 Andrew Prominences Protected 13:58:29 A # 20 IV was noted in the Hand (right). Grade = 0 13:58:39 A # 20 IV was noted in the Antecubital (right). Grade = 0 13:58:49 Patient arrived on IV Solutions in Right Antecubital via Peripheral IV. Pump/Drip Flow = 20 ml/hr using NaCl .9. Assessment: Initial Case, HR=57 BPM, Rhythm=sr, HSYR=267/62 mmhg, Chest Pain=0, Edema=None, Col or=Normal, Skin = Warm, Dry Right Pulses: Armen Ped=3, Femoral=3 14:00:40 Left Pulses: Armen Ped=3, Femoral=3 Neurological: State=Alert, Ox3, DIGGS Respiration: Resp=18 B/min, SpO2=98 % 14:00:43 paged Vitals capture started with the following parameters, Patient=Adult, Interval=5 min, Initial Pr noefod=512 mmHg, 14:00:43 Deflation Rate=5 mmHg 14:01:15 HR=69 bpm, OXEB=268/62 mmhg, LdR8=042.0 %, Resp=31 B/min, Pain=0, Tony=10, Carlisle=2 14:06:20 HR=63 bpm, FZSL=751/53 mmhg, SpO2=98.0 %, Resp=10 B/min, Pain=0, Tony=10, Carlisle=2 14:11:19 HR=61 bpm, HXSW=513/54 mmhg, SpO2=99.0 %, Resp=19 B/min, Pain=0, Tony=10, Carlisle=2 14:13:18 Right groin prepped with 2% chlorhexidine, and with a 3 min. waiting time. 14:14:34 Pressure channel 1 zeroed. 14:16:18 HR=65 bpm, LVND=537/58 mmhg, SpO2=96.0 %, Resp=7 B/min, Pain=0, Tony=10, Carlisle=2 Time Out. Correct patient, correct procedure,correct physician, ,power injector not loaded with contrast with surgical 14:20:28 team present. Time Out Concurred by MD, individual staff and [employer]S ASSEMBLER in procedure 14:21:13 1 mg VERSED given in lab by Sony Morales RN in Right Antecubital via Peripheral IV. 14:21:24 HR=58 bpm, OBUG=773/57 mmhg, SpO2=98.0 %, Resp=13 B/min 14:21:38 Case Start 14:21:39 20 mL 1% XYLOCAINE given in lab by Montrell Simmons in Right Groin via Subcutaneous. 14:21:53 Access site was Right Femoral Artery. 14:22:29 A SHEATH, FR4 TERUMO (10CM) FR 4 was advanced into the Fem Art (right) using the Percutaneo us technique. 14:22:54 Access site was Right Femoral Vein. 14:22:58 A SHEATH, FR5.5 PRELUDE 11CM FR 5 was advanced into the Fem Vein (right) using the Percutan eous technique. A CATHETER, FR5 SWAN MONA MONITOR FR 5 was advanced over a wire. OMNIPAQUE, 350 MG, 100ML 100ML was 14:26:03 used for injections. 14:26:21 HR=62 bpm, BJDB=920/57 mmhg, SpO2=97.0 %, Resp=15 B/min, Pain=0, Tony=10, Carlisle=2 Recorded Pressure: PCW, HR=61, Condition=Condition 1 14:28:04 (Pulmonary Capillary Wedge) PCW Recorded Pressure: MPA, HR=63, Condition=Condition 1 14:28:20 (Main Pulmonary Artery) MPA 10/07/15 Recorded Pressure: RV, HR=58, Condition=Condition 1 14:29:22 (Right Ventricle) RV 26/2/7 Recorded Pressure: RA, HR=61, Condition=Condition 1 14:29:44 (Right Atrium) RA 8/6/4 14:30:55 [place] Mona Catheter Removed 14:31:25 Saturation: Site=FA (Femoral Artery) , O2=97.1 %, Hgb=13 gm/dl, Condition=Condition 1. Used in calculation. 14:31:47 Saturation: Site=PA (Pulmonary Artery) , O2=67.5 %, Hgb=13 gm/dl, Condition=Condition 1. Us ed in calculation. 14:31:57 HR=60 bpm, MOXB=029/54 mmhg, SpO2=96.0 %, Resp=8 B/min, Pain=0, Tony=10, Carlisle=2 A JR 4.0 INFINITI CATHETER FR 4 was advanced over a wire. OMNIPAQUE, 350 MG, 100ML 100ML was us ed for 14:32:10 injections. Recorded Pressure: LV, HR=65, Condition=Condition 1 14:33:01 (Left Ventricle) LV 104/3/20 14:33:03 The LV was injected at 8 cc/sec for a total of 8. OMNIPAQUE, 350 MG, 100ML 100ML used. Recorded Pressure: LV, Ao, HR=62, Condition=Condition 1 14:33:05 (Left Ventricle) LV 103/2/19, (Aorta) Ao 108/47/72 14:33:35 The RCA was injected and visualized at various angles. OMNIPAQUE, 350 MG, 100ML 100ML used . 14:34:30 Catheter was removed A JL 4.0 INFINITI CATHETER FR 4 was advanced over a wire. OMNIPAQUE, 350 MG, 100ML 100ML was us ed for 14:34:31 injections. 14:34:56 The LCA was injected and visualized at various angles. OMNIPAQUE, 350 MG, 100ML 100ML used . 14:35:23 Saturation: Site=RA (Right Atrium) , O2=64.8 %, Hgb=13 gm/dl, Condition=Condition 1. Used i n calculation. 14:36:54 HR=63 bpm, WUWI=582/54 mmhg, SpO2=99.0 %, Resp=13 B/min, Pain=0, Tony=10, Carlisle=2 Recorded Pressure: Ao, HR=61, Condition=Condition 1 14:38:18 (Aorta) Ao 105/49/73 14:41:24 HR=66 bpm, FIXC=040/49 mmhg, SpO2=98.0 %, Resp=22 B/min, Pain=0, Tony=10, Carlisle=2 14:43:10 Catheter was removed A SHEATH, FR6.5 PRELUDE 23CM FR 6.5 was exchanged in the Fem Art (right). This was necessary in order to 14:43:41 accomodate a larger catheter. 14:44:16 7200 units HEPARIN given in lab by Sony Morales RN in Right Antecubital via Peripheral I V. 14:46:27 HR=63 bpm, GBPO=773/47 mmhg, SpO2=99.0 %, Resp=24 B/min, Pain=0, Tony=10, Carlisle=2 A XB 3.5 GUIDE CATHETER FR 6 was advanced over a wire. OMNIPAQUE, 350 MG, 100ML 100ML was used for 14:48:44 injections. 14:48:59 Flow Wire was was placed in the LAD Mid. The FFR measures 0.8 percent. The IFR measures ~IF R~ Percent. 14:51:20 HR=60 bpm, GYLA=914/57 mmhg, SpO2=99.0 %, Resp=21 B/min, Pain=0, Tony=10, Carlisle=2 14:56:23 HR=65 bpm, RBWK=592/55 mmhg, SpO2=98.0 %, Resp=20 B/min, Pain=0, Tony=10, Carlisle=2 An STENT, 3.0 9 INTEGRITY 3.0 9 Bare Metal Stent was inserted through a XB 3.5 GUIDE CATHETER F R 6 over a 14:59:52 PRIME WIRE, VERRATA 185CM 185CM. A STENT, 3.0 9 INTEGRITY 3.0 9 was deployed using a 30 MALENA INDEFLATOR at 11 atmospheres for 15 seconds in the 15:00:21 LAD Mid. 15:00:54 Delivery device removed 15:01:24 HR=68 bpm, SQWV=635/58 mmhg, SpO2=99.0 %, Resp=18 B/min, Pain=0, Tony=10, Carlisle=2 15:02:00 Activated Clotting Time Drawn 15:02:48 Wire removed 15:02:51 Catheter was removed 15:06:20 ACT (Normal Range 90-180) = 254 15:06:27 HR=66 bpm, GFAB=352/69 mmhg, SpO2=96.0 %, Resp=17 B/min, Pain=0, Tony=10, Carlisle=2 15:06:40 Sterile dressing applied to site 15:06:41 No case complications noted. 15:06:42 Case End 15:06:44 Cine recording checked. 15:06:57 CICU called. Spoke to [facility] director. A-line will be made. 15:07:33 A Left and Right Heart Cath was performed. Assessment: Final Case, HR=62 BPM, Rhythm=sr, ZRMY=567/69 mmhg, Chest Pain=0, Edema=None, Color =Normal, 15:07:48 Skin = Warm, Dry 15:08:30 50 mL AGGRASTAT BOLUS given in lab by Sony Morales, BALTAZAR in Right Antecubital via Periphera l IV. 0.145 mcg/kg/min AGGRASTAT DRIP given in lab by Sony Morales, BALTAZAR in Right Antecubital via Per ipheral IV. Pump/Drip 15:10:50 Flow = 18 ml/hr using NaCl .9 with a concentration of 12.5 mg in 250 ml. 15:11:26 HR=69 bpm, DXTI=604/66 mmhg, SpO2=99.0 %, Resp=8 B/min, Pain=0, Tony=10, Carlisle=2 15:13:52 10 mg EFFIENT given in lab by Sony Morales, RN via Oral. Reason: As per physicians verbal order. Assessment: Final Case, HR=64 BPM, Rhythm=sr, BECU=907/66 mmhg, Chest Pain=0, Edema=None, Color =Normal, Skin = Warm, Dry Right Pulses: Armen Ped=3, Femoral=3 15:14:19 Left Pulses: Armen Ped=3, Femoral=3 Neurological: State=Alert, Ox3, DIGGS Respiration: Resp=18 B/min, SpO2=99 % 15:14:32 Vitals capture stopped. 15:14:[address] [facility] End Study - Contrast Media Used In Study Contrast Total Opened (mL) Total Used (mL) Total Wasted (mL) Omnipaque 130 130 0 End Study - Maximum Contrast Load Max Contrast Load (mL) 469.0 End Study - Radiation Exposure Fluoro Time (minutes) 5.5 End Study - Patient Disposition Complications Transferred To Telemetry Bed
[2017-02-23] MEDS: SODIUM CHLORIDE 0.9% FLUSH 10 ML FLUSH SCH (20:29)
[2017-02-23] MEDS: ATORVASTATIN 40 MG TAB PO SCH (20:29)
--- NOTE | 2017-02-23 22:11 | RADRPT ---
EXAM DATE/TIME: 02/23/2017 21:56 [place] COMPARISON: CHEST SINGLE AP, February 22, 2017, 10:56. CT PULMONARY ANGIOGRAM, February 22, 2017, 14:32. INDICATIONS : Shortness of breath. MEDICAL HISTORY : None. SURGICAL HISTORY : Cardiac stents. ENCOUNTER: Subsequent ACUITY: 2 days PAIN SCORE: 0/10 LOCATION: chest FINDINGS: Slight linear parenchymal opacity in the lung bases, left worse than right is fairly stable. No evide nce of effusion. Cardiomediastinal contours are stable and satisfactory. CONCLUSION: Mild bibasilar parenchymal opacities. Yohan Thomas MD on February 23, 2017 at 22:07 Board Certified Radiologist. This report was verified electronically.
[2017-02-24] VITALS (31 sets, daily range): BP systolic 104–127; BP diastolic 49–71; PULSE 53–76; RESP 18–28; TEMP 97.7–98.5; O2SAT 94–98
[2017-02-24 04:48] LABS: AUTOMATED NEUTROPHIL # 6.4 TH/MM3 (1.8-7.7); BASOPHIL # 0.1 TH/MM3 (0-0.2); BASOPHIL % 1.3 % (0.0-2.0); EOSINOPHIL # 0.3 TH/MM3 (0-0.4); EOSINOPHIL % 2.6 % (0.0-4.0); HEMATOCRIT 39.8 % (39.0-51.0); HEMO FLAGS DIFF FINAL; LYMPH % 23.5 % (9.0-44.0); LYMPHOCYTE # 2.4 TH/MM3 (1.0-4.8); MEAN CELL VOLUME 81.1 FL (80.0-100.0); MEAN CORPUSCULAR HEMOGLOBIN 26.6 PG (27.0-34.0); MEAN CORPUSCULAR HGB CONC 32.8 % (32.0-36.0); MONO % 9.7 % (0.0-8.0); NEUT % 62.9 % (16.0-70.0); PLATELET COUNT 244 TH/MM3 (150-450); RED CELL DISTRIBUTION WIDTH 14.1 % (11.6-17.2); WHITE BLOOD COUNT 10.1 TH/MM3 (4.0-11.0)
[2017-02-24 05:06] LABS: BICARBONATE 24.8 MEQ/L (21.0-32.0); POTASSIUM 3.6 MEQ/L (3.5-5.1)
[2017-02-24 05:09] LABS: HDL CHOLESTEROL 33.7 MG/DL (40.0-60.0)
[2017-02-24] MEDS: RAMIPRIL 5 MG CAP PO SCH ×2 (08:53→22:24)
[2017-02-24] MEDS: SPIRONOLACTONE 50 MG TAB PO SCH ×2 (08:53→18:11)
[2017-02-24] MEDS: ASPIRIN 81 MG CHEW TAB PO SCH (08:53)
[2017-02-24] MEDS: SODIUM CHLORIDE 0.9% FLUSH 10 ML FLUSH SCH ×2 (08:54→22:25)
[2017-02-24] MEDS: SODIUM CHLORIDE 0.9% FLUSH 10 ML FLUSH IV FLUSH SCH ×2 (08:54→22:26)
[2017-02-24] MEDS: PRASUGREL 10 MG TAB PO SCH (08:54)
[2017-02-24] MEDS: CARVEDILOL 6.25 MG TAB PO SCH ×2 (08:54→22:24)
[2017-02-24] MEDS: FUROSEMIDE 20 MG TAB PO SCH ×2 (08:54→22:25)
--- NOTE | 2017-02-24 10:37 | HHI.PR ---
Subjective Remarks Follow-up non-ST elevation RI 02/23/17-patient seen and examined, stated he had 2 episodes of chest pain last night however this morning only complains of chest tightness. Currently nothing by mouth 02/24/17-patient seen and examined, status post [facility] with 1 stent placed . Complaint of shortness of breath otherwise denies any chest pain Objective Vitals Vital Signs Date Time Temp Pulse Resp B/P Pulse Ox O2 Delivery O2 Flow Rate FiO2 02/24/17 10:00 53 02/24/17 09:00 72 02/24/17 08:00 66 02/24/17 07:15 98.0 64 18 109/52 97 02/24/17 07:00 57 02/24/17 06:00 57 02/24/17 05:00 58 02/24/17 04:31 97.7 65 114/49 96 02/24/17 04:00 62 02/24/17 03:00 71 02/24/17 02:00 62 02/24/17 01:01 98.4 76 110/62 96 02/24/17 01:00 66 02/24/17 00:00 66 02/23/17 23:00 68 02/23/17 22:00 74 02/23/17 21:00 72 02/23/17 20:00 72 02/23/17 19:00 98.1 79 112/50 93 02/23/17 19:00 64 02/23/17 18:23 73 02/23/17 18:22 97.7 64 18 109/41 100 02/23/17 17:48 92 21 02/23/17 17:30 97.7 66 18 115/55 100 02/23/17 17:15 67 02/23/17 17:15 97.9 62 18 133/39 97 02/23/17 16:30 97.8 70 18 132/43 99 02/23/17 16:27 97.6 62 18 124/40 97 02/23/17 16:26 69 02/23/17 15:50 97.8 65 18 121/36 97 02/23/17 15:48 97.7 66 18 130/42 97 02/23/17 15:48 67 02/23/17 15:30 97.8 64 18 127/39 98 02/23/17 13:52 57 02/23/17 12:05 59 02/23/17 11:17 58 02/23/17 11:17 97.6 58 18 105/49 97 I/O 02/23/17 02/23/17 02/23/17 02/24/17 02/24/17 02/24/17 07:00 15:00 23:00 07:00 15:00 23:00 Intake Total 240 ml 640 ml 420 ml Output Total 800 ml 450 ml 600 ml Balance -560 ml 190 ml -180 ml Intake Oral 240 ml 640 ml 240 ml IV Total 180 ml Output Urine Total 800 ml 450 ml 600 ml # Voids 3 # Bowel Movements 1 Result Diagram: 02/24/17 0409 02/24/17 0409 Imaging Last Impressions Chest X-Ray 02/23/17 0000 Signed Impressions: Service Date/Time: Thursday, February 23, 2017 21:56 - CONCLUSION: Mild bibasilar parenchymal opacities. Yohan Thomas MD CT Angiography 02/22/17 1058 Signed Impressions: Service Date/Time: Wednesday, February 22, 2017 14:32 - CONCLUSION: 1. No evidence of pulmonary embolus. 2. Mild bilateral lower lobe bronchiectasis and atelectasis. 3. 4 mm nodular density in the right midlung. Recommend 6 month followup noncontrast chest CT. Denis De Jesus MD Objective Remarks GENERAL: NAD SKIN: Warm and dry. HEAD: Normocephalic. EYES: No scleral icterus. No injection or drainage. NECK: Supple, trachea midline. No JVD or lymphadenopathy. CARDIOVASCULAR: Regular rate and rhythm without murmurs, gallops, or rubs. RESPIRATORY: Breath sounds equal bilaterally. No accessory muscle use. GASTROINTESTINAL: Abdomen soft, non-tender, nondistended. MUSCULOSKELETAL: No cyanosis, or edema. BACK: Nontender without obvious deformity. No CVA tenderness. Procedures Left heart catheterization with stent placed 02/23/17 A/P Problem List: (1) NSTEMI (non-ST elevated myocardial infarction) ICD Code: I21.4 Status: Acute (2) Chest pain ICD Code: R07.9 Status: Acute (3) Dyspnea ICD Code: R06.00 Status: Acute (4) CHF (congestive heart failure) ICD Code: I50.9 Status: Chronic (5) CAD (coronary artery disease) ICD Code: I25.10 Status: Chronic Assessment and Plan 61-year-old man with NSTEMI: presented with chest pain/dyspnea, hx of CAD s/p LAD stent 01/12/[address] Simmons. CXR imaging reviewed, unremarkable. CT-PA negative for PE. Cardiac enzymes unremarkable. S/p left heart catheterization with cardiac stent placed 02/23/17. Status post heparin drip. Continue with Effient , aspirin, nitroglycerin, statin, ELYSSA, BB. IV morphine prn. 2-D echo with EF 40- 45%. Dyspnea with hx of Systolic CHF: suspect related to above. Echo 01/12/17 showed EF 25-30%; akinesis of anteroseptal, anterior, and apical myocardium. Repeat 2- D echo with EF 40-45%. BNP mildly elevated of 153, Continue patient's Lasix 20mg bid, ELYSSA, BB, statin, spironolactone. Will consult Pulmonary medicine Right Midlung Nodule: seen on Chest CT as above, recommends 6month f/up with noncontrast CT, Hypertension/Hyperlipidemia: chronic, stable, continue home medications including Coreg, Ramipril, Lipitor. Monitor BP, adjust antihypertensives as needed. DVT Prophylaxis: Effient Problem Qualifiers (1) Chest pain: Qualified Code: I20.9 - Chest pain due to myocardial ischemia, unspecified ischemic chest pain type (2) CAD (coronary artery disease): Qualified Code: I25.10 - Coronary artery disease involving douglas heart, angina presence unspecified, unspecified vessel or lesion type Daniel Lai MD February 24, 2017 10:37
--- NOTE | 2017-02-24 15:35 | EKG ---
Date Performed: 02/24/2017 Time Performed: 05:35:12 PTAGE: 61 years EKG: Sinus rhythm with multifocal PVCs Ant/septal and lateral ST-T changes are nonspecific Abnormal ECG PREVIOUS TRACING : 02/22/2017 16.00 Compared to prior tracing no significant change DOCTOR: Montrell Simmons Interpretating Date/Time 02/24/2017 15:35:48
--- NOTE | 2017-02-24 15:42 | PD.CARD.PN ---
Subjective Subjective Remarks chest pain resolved, still sob Objective Vital Signs / I&O Vital Signs Date Time Temp Pulse Resp B/P Pulse Ox O2 Delivery O2 Flow Rate FiO2 02/24/17 15:23 98.5 75 18 111/55 94 02/24/17 12:00 64 02/24/17 11:00 58 02/24/17 11:00 98.5 67 18 104/54 94 02/24/17 10:00 53 02/24/17 09:00 72 02/24/17 08:00 66 02/24/17 07:15 98.0 64 18 109/52 97 02/24/17 07:00 57 02/24/17 06:00 57 02/24/17 05:00 58 02/24/17 04:31 97.7 65 114/49 96 02/24/17 04:00 62 02/24/17 03:00 71 02/24/17 02:00 62 02/24/17 01:01 98.4 76 110/62 96 02/24/17 01:00 66 02/24/17 00:00 66 02/23/17 23:00 68 02/23/17 22:00 74 02/23/17 21:00 72 02/23/17 20:00 72 02/23/17 19:00 98.1 79 112/50 93 02/23/17 19:00 64 02/23/17 18:23 73 02/23/17 18:22 97.7 64 18 109/41 100 02/23/17 17:48 92 21 02/23/17 17:30 97.7 66 18 115/55 100 02/23/17 17:15 67 02/23/17 17:15 97.9 62 18 133/39 97 02/23/17 16:30 97.8 70 18 132/43 99 02/23/17 16:27 97.6 62 18 124/40 97 02/23/17 16:26 69 02/23/17 15:50 97.8 65 18 121/36 97 02/23/17 15:48 97.7 66 18 130/42 97 02/23/17 15:48 67 I/O 02/23/17 02/23/17 02/23/17 02/24/17 02/24/17 02/24/17 07:00 15:00 23:00 07:00 15:00 23:00 Intake Total 240 ml 640 ml 420 ml Output Total 800 ml 450 ml 600 ml Balance -560 ml 190 ml -180 ml Intake Oral 240 ml 640 ml 240 ml IV Total 180 ml Output Urine Total 800 ml 450 ml 600 ml # Voids 3 # Bowel Movements 1 Laboratory GENERAL: SKIN: Warm and dry. HEAD: Normocephalic. EYES: No scleral icterus. No injection or drainage. NECK: Supple, trachea midline. No JVD or lymphadenopathy. CARDIOVASCULAR: Regular rate and rhythm without murmurs, gallops, or rubs. RESPIRATORY: Breath sounds equal bilaterally. No accessory muscle use. GASTROINTESTINAL: Abdomen soft, non-tender, nondistended. MUSCULOSKELETAL: No cyanosis, or edema. BACK: Nontender without obvious deformity. No CVA tenderness. Laboratory Tests Test 02/24/17 04:09 White Blood Count 10.1 TH/MM3 Red Blood Count 4.90 MIL/MM3 Hemoglobin 13.1 GM/DL Hematocrit 39.8 % Mean Corpuscular Volume 81.1 FL Mean Corpuscular Hemoglobin 26.6 PG Mean Corpuscular Hemoglobin 32.8 % Concent Red Cell Distribution Width 14.1 % Platelet Count 244 TH/MM3 Mean Platelet Volume 8.6 FL Neutrophils (%) (Auto) 62.9 % Lymphocytes (%) (Auto) 23.5 % Monocytes (%) (Auto) 9.7 % Eosinophils (%) (Auto) 2.6 % Basophils (%) (Auto) 1.3 % Neutrophils # (Auto) 6.4 TH/MM3 Lymphocytes # (Auto) 2.4 TH/MM3 Monocytes # (Auto) 1.0 TH/MM3 Eosinophils # (Auto) 0.3 TH/MM3 Basophils # (Auto) 0.1 TH/MM3 CBC Comment DIFF FINAL Differential Comment Sodium Level 138 MEQ/L Potassium Level 3.6 MEQ/L Chloride Level 104 MEQ/L Carbon Dioxide Level 24.8 MEQ/L Anion Gap 9 MEQ/L Blood Urea Nitrogen 19 MG/DL Creatinine 1.06 MG/DL Estimat Glomerular Filtration 71 ML/MIN Rate Random Glucose 97 MG/DL Calcium Level 8.9 MG/DL Total Creatine Kinase 57 U/L Triglycerides Level 116 MG/DL Cholesterol Level 125 MG/DL LDL Cholesterol 68 MG/DL HDL Cholesterol 33.7 MG/DL Cholesterol/HDL Ratio 3.70 RATIO Assessment and Plan Problem List: (1) Hypoxia (2) Cardiomyopathy (3) Mass of right lung (4) Dyspnea (5) Chest pain (6) CAD (coronary artery disease) (7) CHF (congestive heart failure) (8) NSTEMI (non-ST elevated myocardial infarction) Assessment and Plan 1.) [place] - resolved s/p pci prox lad, continue dapt, lipitor, coreg, altace, aldactone 2.) Cardiomyopathy - euvolemic by rhc, rec pulmonary consult Problem Qualifiers (1) Chest pain: Qualified Code: I20.9 - Chest pain due to myocardial ischemia, unspecified ischemic chest pain type (2) CAD (coronary artery disease): Qualified Code: I25.10 - Coronary artery disease involving inaja heart, angina presence unspecified, unspecified vessel or lesion type Montrell Simmons MD February 24, 2017 15:42
[2017-02-24] MEDS: RESP: ALBUTEROL 2.5 MG/IPRATROPIUM 0.5 MG NEB (SCH) NEB (20:24)
[2017-02-24 20:58] LABS: BLOOD GAS CARBOXYHEMOGLOBIN 1.2 % (0-4); BLOOD GAS HCO3 21 mmol/L (22-26); BLOOD GAS O2 HGB SATURATION 93 % (90-100); BLOOD GAS OXYGEN CONTENT 17.5 Vol % (12.0-20.0); BLOOD GAS PCO2 32 mmHg (38-42); BLOOD GAS PO2 74 mmHg (61-120); BLOOD GAS TOTAL HGB 13.4 G/DL (12.0-16.0); CRITICAL VALUE NO; DRAW SITE LT BRACHIAL; LITER FLOW 4 L/M; NUMBER OF ARTERIAL PUNCTURES 1; OXYGEN DEVICE NASAL CANNULA; TEMP CORR TO 98.6
[2017-02-24 20:59] LABS: STAT YES
[2017-02-24] MEDS: ATORVASTATIN 40 MG TAB PO SCH (22:24)
[2017-02-24] MEDS: methylPREDNISolone SOD SUCC 40 MG/1 ML VIAL IV PUSH SCH (22:25)
[2017-02-24] MEDS: MORPHINE SULFATE 4 MG/ML INJ IV PRN (22:26)
[2017-02-24] MEDS: ACETAMINOPHEN/HYDROcodone 325 MG/5 MG TAB PO PRN (23:20)
[2017-02-25] VITALS (23 sets, daily range): BP systolic 112–130; BP diastolic 50–90; PULSE 61–88; RESP 18–24; TEMP 96.3–98.4; O2SAT 91–96
[2017-02-25] MEDS: methylPREDNISolone SOD SUCC 40 MG/1 ML VIAL IV PUSH SCH ×3 (05:31→20:33)
[2017-02-25] MEDS: MORPHINE SULFATE 4 MG/ML INJ IV PRN ×3 (05:33→20:34)
[2017-02-25 06:58] LABS: MEAN CELL VOLUME 80.7 FL (80.0-100.0); MEAN CORPUSCULAR HEMOGLOBIN 27.2 PG (27.0-34.0); MEAN CORPUSCULAR HGB CONC 33.7 % (32.0-36.0); PLATELET COUNT 281 TH/MM3 (150-450); RED BLOOD COUNT 5.07 MIL/MM3 (4.50-5.90); RED CELL DISTRIBUTION WIDTH 14.3 % (11.6-17.2); REVIEW FLAG FINAL; WHITE BLOOD COUNT 7.8 TH/MM3 (4.0-11.0)
--- NOTE | 2017-02-25 07:18 | MA ---
cc: WES MCCARTNEY M.D. DATE 02/23/2017 PROCEDURE PERFORMED Right heart catheterization, left heart catheterization, left ventriculography, coronary angiography, FFR of the proximal LAD, PCI with bare metal stent of the proximal LAD INDICATIONS [place] Heart Association class III congestive heart failure, [place] Cardiovascular Society class IV angina, unstable angina, non-STEMI coronary artery disease, cardiomyopathy dyspnea. PROCEDURAL STATEMENT The patient was brought to the cardiac catheterization laboratory, prepped and draped in the usual sterile fashion. 10 cc of 1% lidocaine was used to locally anesthetize the right common femoral artery. A 4-[place]est[place] sheath successfully placed in the right common femoral artery. A 5-[place]est[place] sheath placed in the femoral vein and right heart catheterization was performed first with a following findings. Pulmonary capillary wedge pressure 14/10-8. PA pressure 24/9-15. RV pressure 26/2-07. RA pressure is 8/6-4 FA sat on four liters nasal cannula 97.1%. PA sat 67.5%. RA sat 64.8%. The cardiac output by Leena is 5.4 liters per minute/meter squared. Cardiac index by Leena is 2.4 liters per meter squared/minute. The SVR is 1012 dynes. Left heart catheterization was then performed with a 4-[place]est[place] JR-4, JL-4 catheter with a following findings. LV pressures 105/4-12. Ejection fraction 45%. The right coronary artery is large and dominant. It is slightly ectatic in the proximal mid segment with mild diffuse disease up to 20-30% angiographically in the proximal mid segment. There appears to be a long 30-40% stenosis in the nnv-vn-goqmtg segment versus appearing relatively narrow compared to possible ectasia in the distal segment. Actually, the proximal right has a 40-50% stenosis. The left main coronary has no significant disease angiographically. The LAD has a 60% stenosis of the bifurcation with a medium size diagonal vessel in the proximal mid segment. Stents in the mid segment are widely patent. There is mild diffuse disease in the ewe-up-ypzlul segment up to 20% angiographically. LAD is transapical. The first diagonal artery is a medium size vessel which bifurcates and has mild to moderate diffuse disease up to 30-40% angiographically in the proximal mid segment. Left circumflex has no significant disease angiographically and supplies a distal medium sized posterolateral artery which has no significant disease angiographically. The 6-Palestinian sheath exchanged for a 4-Palestinian, 70 units/kilo of heparin was given. ACT was 251. A 6-[place]estinian XB 4.0 guide and 0.014 [place] pressure wire was placed into the left main coronary artery. The introducer was removed. The Tuohy was firmly sealed. The guide catheter was thoroughly flushed with 20 cc of normal saline. The pressure waveforms were normalized. The 0.014 [place] pressure wire was advanced beyond the proximal LAD lesion into the distal LAD. Initial IFR was as low at 0.80, however, this was not recorded. During the recording, the IFR was 0.84. The patient was infused with 140 mcg/kilo/minute of Adenosine. Within 30 seconds, the FFR dropped to 0.78. Therefore, it was determined that this lesion was hemodynamically significant and accounting for the patient's symptoms of unstable angina and congestive heart failure. Therefore a 309 integrity stent was deployed at the lesion site with one inflation 12 atmospheres for 20 seconds, stenosis went from 60% to 0% CATHERINE-III flow. CONCLUSION 1. [place] Heart Association class III congestive heart failure. 2. [place] Cardiovascular Society Class IV angina culprit 60% stenosis in the proximal mid LAD with an FFR 0.78 as detailed above. 3. Otherwise widely patent stents in the mid LAD. 4. Otherwise mild to moderate two-vessel coronary disease as detailed above. 5. Cardiomyopathy with EF 45%. 6. Normal right heart pressures as detailed above. 7. Successful direct PCI bare metal stent of the proximal mid LAD from 60% to 0% CATHERINE-III flow. NOTE The patient's chest pain was reproduced when the stent was deployed. Pain was completely relieved at the end of the procedure. RECOMMENDATIONS Continue Effient 10 mg daily, aspirin 162 daily. We will start an Aggrastat bolus and drip per protocol. Continue Lipitor, Aldactone, Coreg, and Altace. MD KAYLA Foster/DAPHNE /3:10 PM /6:55 AM
--- NOTE | 2017-02-25 07:49 | MB ---
cc: RAYMOND LEGER DATE OF CONSULTATION 02/24/2017 REASON FOR CONSULTATION Respiratory distress and chest tightness. PRESENT ILLNESS This is a 61-year-old white male who initially was admitted with chest pain and prior history of coronary artery disease with stenting done in December this year. He has had a history for CHF with ejection fraction of 25-30%. The patient apparently was readmitted with anterior chest pain radiating into the neck and the temporal area and had cardiac evaluation done earlier this week. He also has been the experiencing severe shortness of breath with activity. He went for a CTA of the chest which demonstrated no evidence of pulmonary emboli but had a tiny nodule in the lower lung field needing followup in six months. The patient has no hemoptysis. He has no cough but has some wheezing occasionally and orthopnea. PAST HISTORY 1. History of gastroesophageal reflux. 2. Hypertension. 3. Hyperlipidemia. 4. Kidney stones with lithotripsy. PAST SURGICAL HISTORY 1. Appendectomy. 2. Cataract surgery. 3. Cystoscopies. 4. Cardiac catheterization with stenting of the LAD in December of this year. 5. He has had five knee surgeries on the right and left. 6. Shoulder repair. HABITS The patient does not smoke. Alcohol use occasional. Lives at home and is . ALLERGIES None. FAMILY HISTORY Mother had a history of vascular disease and coronary artery disease. Father has coronary artery disease. SYSTEMS REVIEW The patient has gained weight. He has no leg swelling. He has some shortness of breath and he has epigastric distress and reflux and urinary frequency. The other systems reviewed as in present complaint. Also has joint pains. PHYSICAL EXAMINATION GENERAL: This well-built middle-aged man who is alert, anxious and in no distress. VITAL SIGNS: Blood pressure 110/60, pulse 70, respirations 18, temperature 97.5. HEENT: Head normocephalic. Pupils reactive and equal. Tongue is moist. Throat is clear. NECK: Supple without venous distension. No thyromegaly. CHEST: Equal movements with decreased excursions. Occasional wheezes are heard in the upper lung galvez. Prolonged expirations. HEART SOUNDS: Regular. S1 and S2. No murmur. No S3. ABDOMEN: Soft, protuberant, without masses. No organomegaly or tenderness. Bowel sounds are active. EXTREMITIES: No lesions. No edema. Decreased peripheral pulses. NEUROLOGIC: Reflexes are 1+ with no gross motor deficits. Cranial nerves grossly intact. RECTAL EXAM: Deferred. SKIN: No lesions. IMAGING STUDIES Chest x-ray and CT showed mild basilar atelectasis with mild bronchiectasis and nodular density in the right midlung. IMPRESSION 1. Non-ST elevated myocardial infarct. 2. Reactive airways disease with dyspnea. 3. Degenerative arthritis. 4. History of CHF and coronary artery disease. PLAN 1. The patient will be placed on O2 at 2 liters. 2. Blood gas studies were ordered on room air. 3. Nebulized albuterol and Atrovent solution added q.i.d. and he will be sent for a pulmonary function study with bronchodilators. 4. The patient will also be placed on an inhaled steroid and was placed on Solu-Medrol 40 mg IV q.8 hours for one day. 5. Follow-up evaluation with a follow-up chest x-ray. Thank you Dr. Lai for this consultation . MD BRITTNI Aguayo/MINNA /7:13 AM /7:27 AM
[2017-02-25] MEDS: RESP: ALBUTEROL 2.5 MG/IPRATROPIUM 0.5 MG NEB (SCH) NEB ×3 (08:00→15:08)
[2017-02-25] MEDS: SODIUM CHLORIDE 0.9% FLUSH 10 ML FLUSH IV FLUSH SCH ×2 (08:38→20:34)
[2017-02-25] MEDS: SODIUM CHLORIDE 0.9% FLUSH 10 ML FLUSH SCH ×2 (08:38→20:33)
[2017-02-25] MEDS: RAMIPRIL 5 MG CAP PO SCH ×2 (08:38→20:33)
[2017-02-25] MEDS: PRASUGREL 10 MG TAB PO SCH (08:38)
[2017-02-25] MEDS: FUROSEMIDE 20 MG TAB PO SCH ×2 (08:38→20:33)
[2017-02-25] MEDS: SPIRONOLACTONE 50 MG TAB PO SCH ×2 (08:38→18:12)
[2017-02-25] MEDS: CARVEDILOL 6.25 MG TAB PO SCH ×2 (08:38→20:33)
[2017-02-25] MEDS: ASPIRIN 81 MG CHEW TAB PO SCH (08:38)
--- NOTE | 2017-02-25 10:39 | PD.CARD.PN ---
Subjective Subjective Remarks alert in mckayla christopher chest pain, dyspnea improved with breathing treatments Objective Vital Signs / I&O Vital Signs Date Time Temp Pulse Resp B/P Pulse Ox O2 Delivery O2 Flow Rate FiO2 02/25/17 10:00 85 02/25/17 09:00 72 02/25/17 08:00 62 02/25/17 07:15 98.4 66 18 116/90 95 02/25/17 07:15 61 02/25/17 05:16 96.3 74 24 112/56 96 02/25/17 01:00 64 02/25/17 00:00 64 02/24/17 23:45 98.3 72 24 127/71 96 02/24/17 23:00 66 02/24/17 22:00 70 02/24/17 21:00 66 02/24/17 20:30 98.3 64 28 112/62 94 02/24/17 20:00 66 02/24/17 19:30 98 Nasal Cannula 4.00 02/24/17 19:00 66 02/24/17 18:00 68 02/24/17 17:00 74 02/24/17 16:00 71 02/24/17 15:23 98.5 75 18 111/55 94 02/24/17 15:00 75 02/24/17 14:00 68 02/24/17 13:00 64 02/24/17 12:00 64 02/24/17 11:00 58 02/24/17 11:00 98.5 67 18 104/54 94 I/O 02/24/17 02/24/17 02/24/17 02/25/17 02/25/17 02/25/17 07:00 15:00 23:00 07:00 15:00 23:00 Intake Total 420 ml 550 ml 240 ml Output Total 600 ml 650 ml 220 ml Balance -180 ml -100 ml 20 ml Intake Oral 240 ml 550 ml 240 ml IV Total 180 ml Output Urine Total 600 ml 650 ml 220 ml # Bowel Movements 1 0 Physical Exam GENERAL: SKIN: Warm and dry. HEAD: Normocephalic. EYES: No scleral icterus. No injection or drainage. NECK: Supple, trachea midline. No JVD or lymphadenopathy. CARDIOVASCULAR: Regular rate and rhythm without murmurs, gallops, or rubs. RESPIRATORY: Breath sounds equal bilaterally. No accessory muscle use. GASTROINTESTINAL: Abdomen soft, non-tender, nondistended. MUSCULOSKELETAL: No cyanosis, or edema. BACK: Nontender without obvious deformity. No CVA tenderness. Laboratory Laboratory Tests Test 02/24/17 02/25/17 20:48 06:10 Blood Gas Puncture Site LT BRACHIAL Blood Gas Patient Temperature 98.6 Blood Gas HCO3 21 mmol/L Blood Gas Base Excess -2.0 mmol/L Blood Gas Oxygen Saturation 93 % Arterial Blood pH 7.45 Arterial Blood Partial 32 mmHg Pressure CO2 Arterial Blood Partial 74 mmHg Pressure O2 Arterial Blood Oxygen Content 17.5 Vol % Arterial Blood 1.2 % Carboxyhemoglobin Arterial Blood Methemoglobin 1.0 % Blood Gas Hemoglobin 13.4 G/DL Oxygen Delivery Device NASAL CANNULA Blood Gas Liter Flow 4 L/M White Blood Count 7.8 TH/MM3 Red Blood Count 5.07 MIL/MM3 Hemoglobin 13.8 GM/DL Hematocrit 41.0 % Mean Corpuscular Volume 80.7 FL Mean Corpuscular Hemoglobin 27.2 PG Mean Corpuscular Hemoglobin 33.7 % Concent Red Cell Distribution Width 14.3 % Platelet Count 281 TH/MM3 Mean Platelet Volume 8.6 FL Assessment and Plan Problem List: (1) Hypoxia (2) Cardiomyopathy (3) Mass of right lung (4) Dyspnea (5) Chest pain (6) CAD (coronary artery disease) (7) CHF (congestive heart failure) (8) NSTEMI (non-ST elevated myocardial infarction) Assessment and Plan 1.) [place] - resolved s/p pci prox lad, continue dapt, lipitor, coreg, altace, aldactone 2.) Cardiomyopathy - euvolemic by rhc, continue current meds, ok to dc from cv standpoint, f/u with nm 02/28/17 Problem Qualifiers (1) Chest pain: Qualified Code: I20.9 - Chest pain due to myocardial ischemia, unspecified ischemic chest pain type (2) CAD (coronary artery disease): Qualified Code: I25.10 - Coronary artery disease involving [place] heart, angina presence unspecified, unspecified vessel or lesion type Montrell Simmons MD February 25, 2017 10:39
--- NOTE | 2017-02-25 11:04 | HHI.PR ---
Subjective Remarks Follow-up non-ST elevation [place] 02/23/17-patient seen and examined, stated he had 2 episodes of chest pain last night however this morning only complains of chest tightness. Currently nothing by mouth 02/24/17-patient seen and examined, status post [facility] with 1 stent placed . Complaint of shortness of breath otherwise denies any chest pain 02/25/17-patient seen and examined, currently on 6 L nasal cannula and complaint of shortness of breath. Denies any chest pain. Objective Vitals Vital Signs Date Time Temp Pulse Resp B/P Pulse Ox O2 Delivery O2 Flow Rate FiO2 02/25/17 10:20 91 Nasal Cannula 6.00 02/25/17 10:00 85 02/25/17 09:00 72 02/25/17 08:00 62 02/25/17 07:15 98.4 66 18 116/90 95 02/25/17 07:15 61 02/25/17 05:16 96.3 74 24 112/56 96 02/25/17 01:00 64 02/25/17 00:00 64 02/24/17 23:45 98.3 72 24 127/71 96 02/24/17 23:00 66 02/24/17 22:00 70 02/24/17 21:00 66 02/24/17 20:30 98.3 64 28 112/62 94 02/24/17 20:00 66 02/24/17 19:30 98 Nasal Cannula 4.00 02/24/17 19:00 66 02/24/17 18:00 68 02/24/17 17:00 74 02/24/17 16:00 71 02/24/17 15:23 98.5 75 18 111/55 94 02/24/17 15:00 75 02/24/17 14:00 68 02/24/17 13:00 64 02/24/17 12:00 64 I/O 02/24/17 02/24/17 02/24/17 02/25/17 02/25/17 02/25/17 06:59 14:59 22:59 06:59 14:59 22:59 Intake Total 420 ml 550 ml 240 ml Output Total 600 ml 650 ml 220 ml Balance -180 ml -100 ml 20 ml Intake Oral 240 ml 550 ml 240 ml IV Total 180 ml Output Urine Total 600 ml 650 ml 220 ml # Bowel Movements 1 0 Result Diagram: 02/25/17 0610 02/24/17 0409 Imaging Last Impressions Chest X-Ray 02/23/17 0000 Signed Impressions: Service Date/Time: Thursday, February 23, 2017 21:56 - CONCLUSION: Mild bibasilar parenchymal opacities. Yohan Thomas MD CT Angiography 02/22/17 1058 Signed Impressions: Service Date/Time: Wednesday, February 22, 2017 14:32 - CONCLUSION: 1. No evidence of pulmonary embolus. 2. Mild bilateral lower lobe bronchiectasis and atelectasis. 3. 4 mm nodular density in the right midlung. Recommend 6 month followup noncontrast chest CT. Denis De Jesus MD Objective Remarks GENERAL: NAD SKIN: Warm and dry. HEAD: Normocephalic. EYES: No scleral icterus. No injection or drainage. NECK: Supple, trachea midline. No JVD or lymphadenopathy. CARDIOVASCULAR: Regular rate and rhythm without murmurs, gallops, or rubs. RESPIRATORY: Breath sounds equal bilaterally. No accessory muscle use. GASTROINTESTINAL: Abdomen soft, non-tender, nondistended. MUSCULOSKELETAL: No cyanosis, or edema. BACK: Nontender without obvious deformity. No CVA tenderness. Procedures Left heart catheterization with stent placed 02/23/17 A/P Problem List: (1) NSTEMI (non-ST elevated myocardial infarction) ICD Code: I21.4 Status: Acute (2) Chest pain ICD Code: R07.9 Status: Acute (3) Dyspnea ICD Code: R06.00 Status: Acute (4) CHF (congestive heart failure) ICD Code: I50.9 Status: Chronic (5) CAD (coronary artery disease) ICD Code: I25.10 Status: Chronic (6) Hypoxia ICD Code: R09.02 Status: Acute (7) Acute respiratory failure with hypoxia ICD Code: J96.01 Status: Acute Assessment and Plan 61-year-old man with NSTEMI: presented with chest pain/dyspnea, hx of CAD s/p LAD stent 01/12/[address] Simmons. CXR imaging reviewed, unremarkable. CT-PA negative for PE. Cardiac enzymes unremarkable. S/p left heart catheterization with cardiac stent placed 02/23/17. Status post heparin drip therapy. Continue with Effient , aspirin, nitroglycerin, statin, ELYSSA, BB. IV morphine prn. 2-D echo with EF 40-45%. Dyspnea with hx of Systolic CHF: suspect related to above. Echo 01/12/17 showed EF 25-30%; akinesis of anteroseptal, anterior, and apical myocardium. Repeat 2- D echo with EF 40-45%. BNP mildly elevated of 153, Continue Lasix 20mg bid, ELYSSA, BB, statin, spironolactone. Acute respiratory failure with hypoxemia Appreciate input from cardiology and PFT pending Currently on Solu-Medrol, bronchodilator Check chest US TO RULE OUT PLEURAL EFFUSION AND TREAT ACCORDINGLY Right Midlung Nodule: seen on Chest CT as above, recommends 6month f/up with noncontrast CT, Hypertension/Hyperlipidemia: chronic, stable, continue home medications including Coreg, Ramipril, Lipitor. Monitor BP, adjust antihypertensives as needed. DVT Prophylaxis: Effient Problem Qualifiers (1) Chest pain: Qualified Code: I20.9 - Chest pain due to myocardial ischemia, unspecified ischemic chest pain type (2) CAD (coronary artery disease): Qualified Code: I25.10 - Coronary artery disease involving [place] heart, angina presence unspecified, unspecified vessel or lesion type Daniel Lai MD February 25, 2017 11:04
--- NOTE | 2017-02-25 12:15 | RADRPT ---
EXAM DATE/TIME: 02/25/2017 11:37 [facility] COMPARISON: No previous studies available for comparison. INDICATIONS : Shortness of breath. MEDICAL HISTORY : Myocardial infarction. Hypercholesterolemia. Cataracts. Hypertension. Dyspnea. GERD. Renal disease. CHF. CAD. Respiratory failure. Pneumonia. SURGICAL HISTORY : Appendectomy. Coronary artery stent. Knee surgery. Shoulder surgery. Ankle surgery. ENCOUNTER: Initial ACUITY: 1 month PAIN SCORE: 5/10 LOCATION: Left chest MEASUREMENTS: SKIN TO PARIETAL PLEURA: Inadequate fluid SKIN TO MAX SAFE DEPTH: Inadequate fluid ESTIMATED FLUID VOLUME: 0 cc FLUID COMPOSITION: Inadequate fluid FINDINGS: No marking was performed. CONCLUSION: There is no significant fluid for safe thoracentesis. Sukhjinder Deleon MD FACR on February 25, 2017 at 12:05 Board Certified Radiologist. This report was verified electronically.
[2017-02-25] MEDS: ACETAMINOPHEN/HYDROcodone 325 MG/5 MG TAB PO PRN (15:59)
--- NOTE | 2017-02-25 18:01 | HHI.PR ---
Subjective Remarks Has some SOB . PFT to be done. Off O2 . Objective Vital Signs Date Time Temp Pulse Resp B/P Pulse Ox O2 Delivery O2 Flow Rate FiO2 02/25/17 17:00 76 02/25/17 16:00 83 02/25/17 15:00 76 02/25/17 15:00 98.4 78 18 123/50 95 02/25/17 14:00 83 02/25/17 13:00 83 02/25/17 12:00 78 02/25/17 11:00 97.7 88 18 118/57 94 02/25/17 11:00 86 02/25/17 10:20 91 Nasal Cannula 6.00 02/25/17 10:00 85 02/25/17 09:00 72 02/25/17 08:00 62 02/25/17 07:15 98.4 66 18 116/90 95 02/25/17 07:15 61 02/25/17 05:16 96.3 74 24 112/56 96 02/25/17 01:00 64 02/25/17 00:00 64 02/24/17 23:45 98.3 72 24 127/71 96 02/24/17 23:00 66 02/24/17 22:00 70 02/24/17 21:00 66 02/24/17 20:30 98.3 64 28 112/62 94 02/24/17 20:00 66 02/24/17 19:30 98 Nasal Cannula 4.00 02/24/17 19:00 66 02/24/17 18:00 68 I/O 02/24/17 02/24/17 02/24/17 02/25/17 02/25/17 02/25/17 07:00 15:00 23:00 07:00 15:00 23:00 Intake Total 420 ml 550 ml 240 ml 600 ml Output Total 600 ml 650 ml 220 ml 650 ml Balance -180 ml -100 ml 20 ml -50 ml Intake Oral 240 ml 550 ml 240 ml 600 ml IV Total 180 ml Output Urine Total 600 ml 650 ml 220 ml 650 ml # Bowel Movements 1 0 1 Result Diagram: 02/25/17 0610 02/24/17 0409 Objective Remarks IMPRESSION 1. Non-ST elevated myocardial infarct. 2. Reactive airways disease with dyspnea. 3. Degenerative arthritis. 4. History of CHF and coronary artery disease. Plan : 1. O2 prn 2 l. 2. Continue nebstid , Duoneb. 3. PFT today. 4. Solumedrol 40 mg IV q8h. 5. Chest X ray in am All Garrido MD February 25, 2017 18:01
[2017-02-25] MEDS: ATORVASTATIN 40 MG TAB PO SCH (20:33)
[2017-02-26] VITALS (21 sets, daily range): BP systolic 101–119; BP diastolic 45–66; PULSE 54–82; RESP 17–20; TEMP 97.5–97.7; O2SAT 92–96
[2017-02-26] MEDS: methylPREDNISolone SOD SUCC 40 MG/1 ML VIAL IV PUSH SCH ×2 (05:55→14:25)
--- NOTE | 2017-02-26 06:46 | RADRPT ---
EXAM DATE/TIME: 02/26/2017 06:25 [facility] COMPARISON: CHEST SINGLE AP, February 23, 2017, 21:56. INDICATIONS : Shortness of breath. MEDICAL HISTORY : Hypertension. Myocardial infarction. Congestive heart failure. SURGICAL HISTORY : Coronary artery stent. ENCOUNTER: Subsequent ACUITY: 4 - 6 days PAIN SCORE: Non-responsive. LOCATION: Bilateral chest FINDINGS: The bibasilar atelectasis is improving and almost resolved. No new infiltrates are seen. Heart size i s stable. There are no pleural effusions. The bony structures are stable. CONCLUSION: Improving bibasilar atelectasis. Jose Shankar MD on February 26, 2017 at 6:44 Board Certified Radiologist. This report was verified electronically.
[2017-02-26] MEDS: RESP: ALBUTEROL 2.5 MG/IPRATROPIUM 0.5 MG NEB (SCH) NEB ×2 (07:54→12:45)
[2017-02-26] MEDS: SODIUM CHLORIDE 0.9% FLUSH 10 ML FLUSH SCH (09:00)
[2017-02-26] MEDS: ASPIRIN 81 MG CHEW TAB PO SCH (09:02)
[2017-02-26] MEDS: SPIRONOLACTONE 50 MG TAB PO SCH (09:02)
[2017-02-26] MEDS: FUROSEMIDE 20 MG TAB PO SCH (09:02)
[2017-02-26] MEDS: RAMIPRIL 5 MG CAP PO SCH (09:02)
[2017-02-26] MEDS: SODIUM CHLORIDE 0.9% FLUSH 10 ML FLUSH IV FLUSH SCH (09:04)
[2017-02-26] MEDS: PRASUGREL 10 MG TAB PO SCH (09:04)
[2017-02-26] MEDS: CARVEDILOL 6.25 MG TAB PO SCH (09:04)
[2017-02-26] MEDS: ACETAMINOPHEN/HYDROcodone 325 MG/5 MG TAB PO PRN (10:17)
--- NOTE | 2017-02-26 14:42 | HHI.PR ---
Subjective Remarks Has some SOB . PFT shows mild obstructive disease. Off O2 . Still has chest tightness.Chest X ray is better Objective Vital Signs Date Time Temp Pulse Resp B/P Pulse Ox O2 Delivery O2 Flow Rate FiO2 02/26/17 14:00 77 02/26/17 13:03 77 02/26/17 12:00 68 02/26/17 11:00 82 02/26/17 11:00 97.5 73 18 102/45 96 02/26/17 10:00 74 02/26/17 09:00 80 02/26/17 08:00 60 02/26/17 07:57 92 Nasal Cannula 4.00 02/26/17 07:00 65 02/26/17 07:00 97.6 61 20 107/53 95 02/26/17 06:00 58 02/26/17 05:00 54 02/26/17 04:14 97.7 69 20 101/54 94 02/26/17 04:00 62 02/26/17 03:00 66 02/26/17 02:00 70 02/26/17 01:00 68 02/26/17 00:00 72 02/25/17 23:53 98.1 72 20 122/68 93 02/25/17 23:00 82 02/25/17 22:00 78 02/25/17 21:10 96 2.00 02/25/17 21:00 76 02/25/17 20:39 20 02/25/17 20:00 78 02/25/17 20:00 98.1 79 20 130/70 93 02/25/17 19:00 86 02/25/17 18:45 20 02/25/17 18:00 70 02/25/17 17:00 76 02/25/17 16:00 83 02/25/17 15:00 76 02/25/17 15:00 98.4 78 18 123/50 95 I/O 02/25/17 02/25/17 02/25/17 02/26/17 02/26/17 02/26/17 07:00 15:00 23:00 07:00 15:00 23:00 Intake Total 240 ml 600 ml 400 ml Output Total 220 ml 650 ml 600 ml Balance 20 ml -50 ml -200 ml Intake Oral 240 ml 600 ml 400 ml IV Total 0 ml Output Urine Total 220 ml 650 ml 600 ml Emesis 0 ml # Bowel Movements 0 1 0 Result Diagram: 02/25/17 0610 02/24/17 0409 Objective Remarks IMPRESSION 1. Non-ST elevated myocardial infarct. 2. Reactive airways disease with dyspnea. 3. Degenerative arthritis. 4. History of CHF and coronary artery disease. Plan : 1. D/C O2 2. D/C nebs 3. Add Symbicort 160/4.5 mcg , 2 puffsbid 4. D/C Solumedrol 5. Ventolin HFA , 2 puffs tid prn. 6. OK to go home and will F/U in 2 weeks All Garrido MD February 26, 2017 14:42
[2017-02-26] MEDS ORDERED: ALBUTEROL SULFATE 90 MCG/ACT HFA 18 GM INHALER INH PRN (15:00)
--- NOTE | 2017-02-26 15:30 | PD.CARD.PN ---
Subjective Subjective Remarks alert in nad Objective Vital Signs / I&O Vital Signs Date Time Temp Pulse Resp B/P Pulse Ox O2 Delivery O2 Flow Rate FiO2 02/26/17 14:00 77 02/26/17 13:03 77 02/26/17 12:00 68 02/26/17 11:00 82 02/26/17 11:00 97.5 73 18 102/45 96 02/26/17 10:00 74 02/26/17 09:00 80 02/26/17 08:00 60 02/26/17 07:57 92 Nasal Cannula 4.00 02/26/17 07:00 65 02/26/17 07:00 97.6 61 20 107/53 95 02/26/17 06:00 58 02/26/17 05:00 54 02/26/17 04:14 97.7 69 20 101/54 94 02/26/17 04:00 62 02/26/17 03:00 66 02/26/17 02:00 70 02/26/17 01:00 68 02/26/17 00:00 72 02/25/17 23:53 98.1 72 20 122/68 93 02/25/17 23:00 82 02/25/17 22:00 78 02/25/17 21:10 96 2.00 02/25/17 21:00 76 02/25/17 20:39 20 02/25/17 20:00 78 02/25/17 20:00 98.1 79 20 130/70 93 02/25/17 19:00 86 02/25/17 18:45 20 02/25/17 18:00 70 02/25/17 17:00 76 02/25/17 16:00 83 I/O 02/25/17 02/25/17 02/25/17 02/26/17 02/26/17 02/26/17 06:59 14:59 22:59 06:59 14:59 22:59 Intake Total 240 ml 600 ml 400 ml Output Total 220 ml 650 ml 600 ml Balance 20 ml -50 ml -200 ml Intake Oral 240 ml 600 ml 400 ml IV Total 0 ml Output Urine Total 220 ml 650 ml 600 ml Emesis 0 ml # Bowel Movements 0 1 0 Physical Exam GENERAL: SKIN: Warm and dry. HEAD: Normocephalic. EYES: No scleral icterus. No injection or drainage. NECK: Supple, trachea midline. No JVD or lymphadenopathy. CARDIOVASCULAR: Regular rate and rhythm without murmurs, gallops, or rubs. RESPIRATORY: Breath sounds equal bilaterally. No accessory muscle use. GASTROINTESTINAL: Abdomen soft, non-tender, nondistended. MUSCULOSKELETAL: No cyanosis, or edema. BACK: Nontender without obvious deformity. No CVA tenderness. Assessment and Plan Problem List: (1) Hypoxia (2) Cardiomyopathy (3) Mass of right lung (4) Dyspnea (5) Chest pain (6) CAD (coronary artery disease) (7) CHF (congestive heart failure) (8) NSTEMI (non-ST elevated myocardial infarction) Assessment and Plan 1.) [place] - resolved s/p pci prox lad, continue dapt, lipitor, coreg, altace, aldactone 2.) Cardiomyopathy - euvolemic by rhc, continue current meds, ok to dc from cv standpoint, f/u with md 02/28/17 Problem Qualifiers (1) Chest pain: Qualified Code: I20.9 - Chest pain due to myocardial ischemia, unspecified ischemic chest pain type (2) CAD (coronary artery disease): Qualified Code: I25.10 - Coronary artery disease involving [place] heart, angina presence unspecified, unspecified vessel or lesion type Montrell Simmons MD February 26, 2017 15:30
[2017-02-26] MEDS ORDERED: IPRA17I INH (16:08)
[2017-02-26] MEDS ORDERED: SYMB160A INH (16:08)
--- NOTE | 2017-02-26 16:11 | HHI.PR ---
Subjective Remarks Follow-up non-ST elevation [place] 02/23/17-patient seen and examined, stated he had 2 episodes of chest pain last night however this morning only complains of chest tightness. Currently nothing by mouth 02/24/17-patient seen and examined, status post [facility] with 1 stent placed . Complaint of shortness of breath otherwise denies any chest pain 02/25/17-patient seen and examined, currently on 6 L nasal cannula and complaint of shortness of breath. Denies any chest pain. 02/26/17-patient seen and examined, reports improvement of shortness of breath. Denies any chest pain.Passed walk test Objective Vitals Vital Signs Date Time Temp Pulse Resp B/P Pulse Ox O2 Delivery O2 Flow Rate FiO2 02/26/17 15:49 93 21 02/26/17 15:00 97.6 67 17 119/66 95 02/26/17 15:00 76 02/26/17 14:00 77 02/26/17 13:03 77 02/26/17 12:00 68 02/26/17 11:00 82 02/26/17 11:00 97.5 73 18 102/45 96 02/26/17 10:00 74 02/26/17 09:00 80 02/26/17 08:00 60 02/26/17 07:57 92 Nasal Cannula 4.00 02/26/17 07:00 65 02/26/17 07:00 97.6 61 20 107/53 95 02/26/17 06:00 58 02/26/17 05:00 54 02/26/17 04:14 97.7 69 20 101/54 94 02/26/17 04:00 62 02/26/17 03:00 66 02/26/17 02:00 70 02/26/17 01:00 68 02/26/17 00:00 72 02/25/17 23:53 98.1 72 20 122/68 93 02/25/17 23:00 82 02/25/17 22:00 78 02/25/17 21:10 96 2.00 02/25/17 21:00 76 02/25/17 20:39 20 02/25/17 20:00 78 02/25/17 20:00 98.1 79 20 130/70 93 02/25/17 19:00 86 02/25/17 18:45 20 02/25/17 18:00 70 02/25/17 17:00 76 I/O 02/25/17 02/25/17 02/25/17 02/26/17 02/26/17 02/26/17 07:00 15:00 23:00 07:00 15:00 23:00 Intake Total 240 ml 600 ml 400 ml Output Total 220 ml 650 ml 600 ml Balance 20 ml -50 ml -200 ml Intake Oral 240 ml 600 ml 400 ml IV Total 0 ml Output Urine Total 220 ml 650 ml 600 ml Emesis 0 ml # Bowel Movements 0 1 0 Result Diagram: 02/25/17 0610 02/24/17 0409 Objective Remarks GENERAL: NAD SKIN: Warm and dry. HEAD: Normocephalic. EYES: No scleral icterus. No injection or drainage. NECK: Supple, trachea midline. No JVD or lymphadenopathy. CARDIOVASCULAR: Regular rate and rhythm without murmurs, gallops, or rubs. RESPIRATORY: Breath sounds equal bilaterally. No accessory muscle use. GASTROINTESTINAL: Abdomen soft, non-tender, nondistended. MUSCULOSKELETAL: No cyanosis, or edema. BACK: Nontender without obvious deformity. No CVA tenderness. Procedures Left heart catheterization with stent placed 02/23/17 A/P Problem List: (1) NSTEMI (non-ST elevated myocardial infarction) ICD Code: I21.4 Status: Acute (2) Chest pain ICD Code: R07.9 Status: Acute (3) Dyspnea ICD Code: R06.00 Status: Acute (4) CHF (congestive heart failure) ICD Code: I50.9 Status: Chronic (5) CAD (coronary artery disease) ICD Code: I25.10 Status: Chronic (6) Hypoxia ICD Code: R09.02 Status: Acute (7) Acute respiratory failure with hypoxia ICD Code: J96.01 Status: Acute Assessment and Plan 61-year-old man with NSTEMI: presented with chest pain/dyspnea, hx of CAD s/p LAD stent 01/12/[address] Simmons. CXR imaging reviewed, unremarkable. CT-PA negative for PE. Cardiac enzymes unremarkable. S/p left heart catheterization with cardiac stent placed 02/23/17. Status post heparin drip therapy. Continue with Effient , aspirin, nitroglycerin, statin, ELYSSA, BB. IV morphine prn. 2-D echo with EF 40-45%. Dyspnea with hx of Systolic CHF: suspect related to above. Echo 01/12/17 showed EF 25-30%; akinesis of anteroseptal, anterior, and apical myocardium. Repeat 2- D echo with EF 40-45%. BNP mildly elevated of 153, Continue Lasix 20mg bid, ELYSSA, BB, statin, spironolactone. Acute respiratory failure with hypoxemia-improving Appreciate input from cardiology and PFT pending s/p Solu-Medrol, continue bronchodilator/ Symbicort chest US RULED OUT PLEURAL EFFUSION Right Midlung Nodule: seen on Chest CT as above, recommends 6month f/up with noncontrast CT, Hypertension/Hyperlipidemia: chronic, stable, continue home medications including Coreg, Ramipril, Lipitor. Monitor BP, adjust antihypertensives as needed. DVT Prophylaxis: Effient Problem Qualifiers (1) Chest pain: Qualified Code: I20.9 - Chest pain due to myocardial ischemia, unspecified ischemic chest pain type (2) CAD (coronary artery disease): Qualified Code: I25.10 - Coronary artery disease involving [place] heart, angina presence unspecified, unspecified vessel or lesion type Daniel Lai MD February 26, 2017 16:11
--- NOTE | 2017-02-26 16:12 | HHI.DS ---
Discharge Summary Admission Date February 22, 2017 at 16:07 Discharge Date: February 26, 2017 Admitting Diagnosis (1) NSTEMI (non-ST elevated myocardial infarction) ICD Code: I21.4 (2) Chest pain ICD Code: R07.9 (3) Dyspnea ICD Code: R06.00 (4) CHF (congestive heart failure) ICD Code: I50.9 (5) CAD (coronary artery disease) ICD Code: I25.10 (6) Hypoxia ICD Code: R09.02 (7) Acute respiratory failure with hypoxia ICD Code: J96.01 Procedures Left heart catheterization with stent placed 02/23/17 Brief History - From Admission 61-year-old male with history of recent OH with CAD s/p LAD stent placed 01/12/17 , CHF with EF 25-30% on Echo 01/12/17, HTN, HLD, presents with worsening chest pain and dyspnea since his cardiac catheterization 6 weeks ago. The patient locates his chest pain diffusely across the anterior chest with radiation into the bilateral neck/jaw, and occasional up to the right temporal area, described as moderate 5/10 chest pressure with occasional sharp pains, associated with severe shortness of breath, nausea, vomiting x2, and diaphoresis. He reports severe dyspnea with exertion, only able to walk a few steps around his home, then is very dyspneic, now taking much longer to recover and catch his breath. He also reports noticing leg swelling over the past 2 days. Denies any orthopnea or weight gain. He has been compliant with his medications, including Effient. He went to his illusionist's office yesterday for treadmill stress test and the patient was unable to tolerate it. He then returned to Dr. Simmons 's office today who sent him to the ER. Upon arrival, Troponin 0.06, EKG with some minimal ST depression in the anterior leads. CT-PA negative for PE. ER MD already discussed with Dr. Simmons who recommends heparin drip and NPO after midnight for cardiac catheterization tomorrow. CBC/BMP: 02/25/17 0610 02/24/17 0409 Significant Findings Laboratory Tests Test 02/24/17 02/24/17 04:09 20:48 Mean Corpuscular Hemoglobin 26.6 PG (27.0-34.0) Monocytes (%) (Auto) 9.7 % (0.0-8.0) Monocytes # (Auto) 1.0 TH/MM3 (0-0.9) Blood Urea Nitrogen 19 MG/DL (7-18) Estimat Glomerular Filtration 71 ML/MIN (>89) Rate HDL Cholesterol 33.7 MG/DL (40.0-60.0) Blood Gas HCO3 21 mmol/L (22-26) Arterial Blood pH 7.45 (7.380-7.420) Arterial Blood Partial 32 mmHg (38-42) Pressure CO2 Imaging Last Impressions Chest X-Ray 02/26/17 0600 Signed Impressions: Service Date/Time: Sunday, February 26, 2017 06:25 - CONCLUSION: Improving bibasilar atelectasis. Jose Shankar MD Chest Ultrasound 02/25/17 0000 Signed Impressions: Service Date/Time: Saturday, February 25, 2017 11:37 - CONCLUSION: There is no significant fluid for safe thoracentesis. Sukhjinder Deleon MD FACR CT Angiography 02/22/17 1058 Signed Impressions: Service Date/Time: Wednesday, February 22, 2017 14:32 - CONCLUSION: 1. No evidence of pulmonary embolus. 2. Mild bilateral lower lobe bronchiectasis and atelectasis. 3. 4 mm nodular density in the right midlung. Recommend 6 month followup noncontrast chest CT. Denis De Jesus MD PE at Discharge GENERAL: NAD SKIN: Warm and dry. HEAD: Normocephalic. EYES: No scleral icterus. No injection or drainage. NECK: Supple, trachea midline. No JVD or lymphadenopathy. CARDIOVASCULAR: Regular rate and rhythm without murmurs, gallops, or rubs. RESPIRATORY: Breath sounds equal bilaterally. No accessory muscle use. GASTROINTESTINAL: Abdomen soft, non-tender, nondistended. MUSCULOSKELETAL: No cyanosis, or edema. BACK: Nontender without obvious deformity. No CVA tenderness. Hospital Course NSTEMI: presented with chest pain/dyspnea, hx of CAD s/p LAD stent 01/12/[address] Simmons. CXR imaging reviewed, unremarkable. CT-PA negative for PE. Cardiac enzymes unremarkable. S/p left heart catheterization with cardiac stent placed 02/23/17. Status post heparin drip therapy. Continue with Effient , aspirin, nitroglycerin, statin, ELYSSA, BB. IV morphine prn. 2-D echo with EF 40-45%. Dyspnea with hx of Systolic CHF: suspect related to above. Echo 01/12/17 showed EF 25-30%; akinesis of anteroseptal, anterior, and apical myocardium. Repeat 2- D echo with EF 40-45%. BNP mildly elevated of 153, Continue Lasix 20mg bid, ELYSSA, BB, statin, spironolactone. Acute respiratory failure with hypoxemia-improving Appreciate input from cardiology and PFT pending s/p Solu-Medrol, continue bronchodilator/ Symbicort chest US RULED OUT PLEURAL EFFUSION Right Midlung Nodule: seen on Chest CT as above, recommends 6month f/up with noncontrast CT, Hypertension/Hyperlipidemia: chronic, stable, continue home medications including Coreg, Ramipril, Lipitor. Monitor BP, adjust antihypertensives as needed. DVT Prophylaxis: Effient Pt Condition on Discharge: Stable Discharge Disposition: Discharge Home Discharge Time: > 30 minutes Discharge Instructions DIET: Follow Instructions for: Heart Healthy Diet Activities you can perform: Regular-No Restrictions Follow up Referrals: Cardiology PCP Follow-up - 1 Week Pulmonology New Medications: Budesonide-Formoterol Inh (Symbicort Inh) 160-4.5 Mcg/Act Aero 2 PUFF INH Q12HR #1 Ref 0 INHALER Ipratropium HFA 12.9 GM Inh (Atrovent HFA 12.9 GM Inh) 17 Mcg/Act Aer 2 PUFF INH QID Breathing Treatment #1 Ref 0 INHALER Continued Medications: Aspirin (Aspirin) 81 Mg Chew 162 MG CHEW DAILY Ref 0 TAB Atorvastatin (Lipitor) 10 Mg Tab 40 MG PO HS Cholesterol Management #30 Ref 0 TAB Carvedilol (Coreg) 6.25 Mg Tab 6.25 MG PO BID #60 Ref 0 TAB Furosemide (Lasix) 20 Mg Tab 20 MG PO BID Ref 0 TAB Prasugrel (Effient) 10 Mg Tab 10 MG PO DAILY Blood Clot Prevention #30 Ref 0 TAB Ramipril (Ramipril) 5 Mg Cap 5 MG PO BID #60 Ref 0 CAP Spironolactone (Aldactone) 50 Mg Tab 50 MG PO BIDPC #60 Ref 0 TAB Additional Information 30 minutes spent over discharge instructions and prognostic Daniel Lai MD February 26, 2017 16:12
--- NOTE | 2017-03-08 09:33 | RSPPFT ---
DATE OF PROCEDURE: 02/25/17 COMMENTS: Spirometry demonstrates an FEV1 of 2.8 at 75% of predicted, FVC of 4.3 at 90%, FEF 25-75 is 60%. Post-bronchodilator study demonstrated no significant change. Lung volumes were not completed. Flow volume loops suggest an obstructive pattern. IMPRESSION: 1. Mild to moderate obstructive disease. 2. No significant change following use of bronchodilator.
== END 2017-02-26 17:15 | disposition home or self-care (01) | DRG 248 ==
LOC: NEPE 10:44 → NEDA 16:07 → HCIN 17:43
PROVIDERS: ADMIT Hospitalist; ATTEND Hospitalist
PROC: 4A023N8 Measurement of Cardiac Sampling and Pressure, Bilateral, Percutaneous Approach (ICD-10-PCS; 2017-02-23)
PROC: B2111ZZ Fluoroscopy of Multiple Coronary Arteries using Low Osmolar Contrast (ICD-10-PCS; 2017-02-23)
PROC: B2151ZZ Fluoroscopy of Left Heart using Low Osmolar Contrast (ICD-10-PCS; 2017-02-23)
PROC: 4A033BC Measurement of Arterial Pressure, Coronary, Percutaneous Approach (ICD-10-PCS; 2017-02-23)
PROC: 02703DZ Dilation of Coronary Artery, One Artery with Intraluminal Device, Percutaneous Approach (ICD-10-PCS; principal; 2017-02-23 13:45)
DX: I21.4 Non-ST elevation (NSTEMI) myocardial infarction (principal); J96.01 Acute respiratory failure with hypoxia; I50.22 Chronic systolic (congestive) heart failure; I42.9 Cardiomyopathy, unspecified; I11.0 Hypertensive heart disease with heart failure; I25.110 Atherosclerotic heart disease of native coronary artery with unstable angina pectoris; E78.5 Hyperlipidemia, unspecified; K21.9 Gastro-esophageal reflux disease without esophagitis; M19.90 Unspecified osteoarthritis, unspecified site; J45.909 Unspecified asthma, uncomplicated; R91.1 Solitary pulmonary nodule; I25.2 Old myocardial infarction; I25.10 Atherosclerotic heart disease of native coronary artery without angina pectoris; Z95.5 Presence of coronary angioplasty implant and graft
CPT/HCPCS: 36600; 71010; 71020; 71275; 76604; 76937; 80048; 80061; 82550; 82785; 82805; 82810; 83735; 83880; 84484; 85002; 85025; 85027; 85610; 85730; 92928; 93005; 93308; 93460; 93571; 94060; 94150; 94620; 94640; 94664; 96365; 96375; C1769; C1876; C1887; C1893; J0153; J1644; J2250; J2270; J2920; J3246; Q9967

== ENCOUNTER 2017-03-10 10:49 | Day surgery (SDC) | payer OTHER ==
[2017-03-10] VITALS (10 sets, daily range): BP systolic 99–113; BP diastolic 53–66; PULSE 73–84; RESP 18–24; TEMP 97.7–98.3; O2SAT 94–97
[~2017-03-10] VITALS: Ht 182.9 cm; Wt 181.0 kg
[~2017-03-10 10:49] MED LIST changes: -ACET325T PO; +FURO1TAB62 PO; +IPRA17I INH; -MUCI600T PO; -PROT40TA PO; +SYMB160A INH
[2017-03-10] MEDS ORDERED: FURO20TA PO (11:36)
[2017-03-10 11:37] LABS: AUTOMATED NEUTROPHIL # 8.8 TH/MM3 (1.8-7.7); BASOPHIL # 0.1 TH/MM3 (0-0.2); BASOPHIL % 0.9 % (0.0-2.0); EOSINOPHIL # 0.3 TH/MM3 (0-0.4); EOSINOPHIL % 2.2 % (0.0-4.0); HEMATOCRIT 43.3 % (39.0-51.0); HEMO FLAGS DIFF FINAL; LYMPHOCYTE # 3.1 TH/MM3 (1.0-4.8); MEAN CELL VOLUME 80.7 FL (80.0-100.0); MEAN CORPUSCULAR HEMOGLOBIN 26.6 PG (27.0-34.0); MONO % 5.6 % (0.0-8.0); NEUT % 67.3 % (16.0-70.0); PLATELET COUNT 284 TH/MM3 (150-450); RED BLOOD COUNT 5.36 MIL/MM3 (4.50-5.90); RED CELL DISTRIBUTION WIDTH 14.1 % (11.6-17.2)
[2017-03-10] MEDS ORDERED: ASPIRIN 81 MG CHEW TAB PO SCH (11:45)
[2017-03-10 11:46] LABS: APTT (PATIENT) 30.5 SEC (24.3-30.1); PROTHROMBIN TIME - PATIENT 11.4 SEC (9.8-11.6)
[2017-03-10 12:05] LABS: BICARBONATE 24.7 MEQ/L (21.0-32.0); POTASSIUM 4.4 MEQ/L (3.5-5.1)
--- NOTE | 2017-03-10 12:57 | EKG ---
Date Performed: 03/10/2017 Time Performed: 11:44:52 PTAGE: 61 years EKG: Sinus rhythm Leftward axis Possible RVH Compared to prior tracing T wave changes have improved, previously seen P VCs are no longer present PRIOR TRACIN02/24/17 DOCTOR: Kayla Mancilla Interpretating Date/Time 03/23/2017 07:12:51
[2017-03-10] MEDS ORDERED: HEPARIN-NS/PF INJ 500 ML ONE (13:34)
[2017-03-10] MEDS ORDERED: ADENOSINE STRESS TEST INJ 90 MG/30 ML VIAL ONE (13:34)
[2017-03-10] MEDS ORDERED: HEPARIN SODIUM - IV 10,000 UNITS/10 ML VIAL ONE (13:54)
--- NOTE | 2017-03-10 14:40 | CATHPROC ---
[employer] HIS Report Study Information Study Number Scheduled Start Study Start [id number] 03/10/2017 Mar 10 2017 1:31PM Referring Institution Admit Source Facility Department 1 Other [facility] Ad[facility]er Physician and Clinical Staff Initial Montrell Wasserman Proof ClerkSony Juárez,RN Mani Garcia,RN Other cathlab, cathlab Recorder Александр King,RT(R) Scrub Alfonzo Rolle,RT(R) Procedures Performed Procedure Location (Site) Vessel Name Coronary Angiograms LCA Left Coronary Coronary Angiograms RCA Right Coronary LV Gram-hand inj. LV LV Ventricle Wire insertion Fem Art (right) Femoral Art Equipment Time V Block Saw Operator Description Size Mfg Part Number Used/Scraped CATHETER, BIFURCATED 13:35 ANGIO-DYNAMICS FR 5 [id number] Used INFUSION BENEPHIT CATHETER, FR5 SWAN MONA 13:34 SAGE SRIVASTAVA FR 5 [id number] *[id number] Used MONITOR TRANSDUCER, TRUWAVE 13:34 SAGE SRIVASTAVA * [id number] Used W/STOCKCOCK TRANSDUCER, TRUWAVE 13:34 SAGE SRIVASTAVA * [id number] Used W/STOCKCOCK [id number] *[id number] *[id number] 13:34 MEDLINE INDUSTRIES PACK, CCL CUSTOM * Used *[id number] 13:34 MEDLINE PACER PEN, SKIN DUAL W/ RULER * [id number] Used 13:36 ByteActive MEDICAL SHEATH, FR5.5 PRELUDE 11CM FR 5 [id number] Used [id number] 13:36 [employer]Active MEDICAL SHEATH, FR6.5 PRELUDE 11CM FR 6.5 038ACT Used *[id number] 13:34 [employer]Active MEDICAL WIRE, 3MMJ .035 180CM 180CM Used *[id number] 13:34 NAMIC MANIFOLD, 2 PORT * Used *[id number] 13:34 NAMIC MANIFOLD, 4 PORT * Used *[id number] 13:34 NYCOMED OMNIPAQUE, 350 MG, 150ML 150ML [id number] Used [id number] 13:34 BYRD MEDICAL BLANKET,WARM AIR CCL * Used *[id number] 14:15 [place]OL[place]O PRIME WIRE, VERRATA 185CM 185CM [id number] *[id number] Used History: Current Medications Medication Dosage/Unit Route Frequency Last Date/Time Taken ASA CARVEDILOL EFFIENT LASIX Statins (any) History: Allergies Allergy Reaction No Known Allergies History: Risk Factors Family History of Hypertension Dyslipidemia Previous RI Previous Heart Failure Premature CAD Yes Yes No No Yes Prior Valve Prior PCI Prior PCIDate Prior CABG Surgery No Yes 02/14/2017 No Cerebrovascular Peripheral Artery Chronic Lung On Dialysis Diabetes Disease Disease Disease No No No No No History: CV Disease Selection Items Known CAD History: Stress Tests Stress or Imaging Studies Performed No History: Other Disease Selection Items CAD HTN History: RI/CV Data Previous Cath Date 02/14/2017 History: Other Current Smoker No Labs Hgb (g/dl) Hct (%) RBC (MIL/MM3) WBC (l/cumm) Platelets (thousands) 12.00-18.00 37.00-55.00 4.80-6.20 4.80-10.80 140.00-450.00 14.0 43 5.3 13 184 Glucose (mg/dl) BUN (mg/dl) Creatinine (mg/dl) BUN:Creatinine (1:x) 60.00-110.00 8.00-20.00 0.10-9.00 10.00-20.00 91 27 1.4 19.3 Na (meq/l) K (meq/l) 138.00-146.00 3.80-5.10 138 4.4 CPK-MB (ng/ML) 0.00-7.00 Not Drawn Medication Medication Total Dose (Bolus/Oral) Medication Total Dosage/Unit 1% XYLOCAINE 20 mL FENTANYL 25 mcg HEPARIN 6900 units NTG (IC) 200 mcg Medications (Bolus/Oral) Medication Time Given Dosage/Unit Administered By Reason 1% XYLOCAINE 03/10/2017 2:03:22 PM 20 mL Montrell Simmons Patient arrived on 20 mL 1% XYLOCAINE given by Montrell Simmons in Right Groin via Subcutaneous. Orde red by Montrell Simmons. FENTANYL 03/10/2017 2:03:53 PM 12.5 mcg Sony Morales 12.5 mcg FENTANYL given in lab by Sony Morales, BALTAZAR in Left Antecubital via Peripheral IV. Ordered b y Montrell Simmons. HEPARIN 03/10/2017 2:13:52 PM 6900 units Sony Morales Patient arrived on 6900 units HEPARIN given by Sony Morales, RN in Left Antecubital via Peripheral IV. Ordered by Montrell Simmons. NTG (IC) 03/10/2017 2:19:19 PM 200 mcg Alfonzo Rolle Patient arrived on 200 mcg NTG (IC) given by Alfonzo Rolle, RT(R) via Intra-coronary. Ordered by Montrell Amador. FENTANYL 03/10/2017 2:37:21 PM 12.5 mcg Sony Morales 12.5 mcg FENTANYL given in lab by Sony Morales, BALTAZAR in Left Antecubital via Peripheral IV. Ordered b y Montrell Simmons. Medication (Drip) Medication Time Given Dosage/Unit Concentration/Unit Diluent (ml) Solution IV Solutions 03/10/2017 1:31:08 PM 0 mL (IV) 500 NaCl .9 Patient arrived on IV Solutions in Left Antecubital via Peripheral IV. Pump/Drip Flow = 20 ml/hr usin g NaCl .9. Ordered by Montrell Simmons. Initial Case Assessment Cardiovascular HR Rhythm NIBP Chest Pain 61 Sinus 114/60 0 Edema Present Skin color Skin None Normal Warm Dry Circulatory - Right Pulses Dorsalis Pedis Femoral 3 3 Scale (0,1,2,3,4,d) Circulatory - Left Pulses Dorsalis Pedis Femoral 3 3 Scale (0,1,2,3,4,d) Neurological State Oriented to time-place- Alert Moves all extremities person Respiration - General Respiration Rate SpO2 (%) O2 (lpm) (B/min) 16 99 0 Final Case Assessment Cardiovascular HR Rhythm NIBP Chest Pain 77 Sinus 103/64 0 Edema Present Skin color Skin None Normal Warm Dry Circulatory - Right Pulses Dorsalis Pedis Femoral 3 3 Scale (0,1,2,3,4,d) Circulatory - Left Pulses Dorsalis Pedis Femoral 3 3 Scale (0,1,2,3,4,d) Neurological State Oriented to time-place- Alert Moves all extremities person Respiration - General Respiration Rate SpO2 (%) O2 (lpm) (B/min) 17 96 0 Chronological Log Time Study Chronological Log 13:30:55 Patient arrived via Bed. 13:30:56 Patient Name, D.O.B, / Armband Verified By R.N. 13:30:57 Consent signed by the physician and the patient and verified by the [facility] staff. 13:30:58 Pre-op and post- op instructions given; patient acknowledges understanding of instructions. 13:31:00 Patient has been NPO for More than 6Hrs. 13:31:01 NOSkin Breakdown- 13:31:03 Patient Warmer Placed on the Table. 13:31:06 Andrew Prominences Protected 13:31:07 A # 20 IV was noted in the Antecubital (left). Grade = 0 Patient arrived on IV Solutions in Left Antecubital via Peripheral IV. Pump/Drip Flow = 20 ml/h r using NaCl .9. Ordered 13:31:08 by Montrell Simmons. 13:31:09 History and physical on the chart or being dictated. Vitals capture started with the following parameters, Patient=Adult, Interval=15 min, Initial P scwrucn=141 mmHg, 13:36:11 Deflation Rate=5 mmHg 13:36:48 HR=61 bpm, JLUD=194/60 mmhg, SpO2=99.0 %, Resp=16 B/min, Pain=0, Tony=10, Carlisle=2 Assessment: Initial Case, HR=61 BPM, Rhythm=Sinus, PRYK=970/60 mmhg, Chest Pain=0, Edema=None, Color=Normal, Skin = Warm, Dry Right Pulses: Armen Ped=3, Femoral=3 13:37:38 Left Pulses: Armen Ped=3, Femoral=3 Neurological: State=Alert, Ox3, DIGGS Respiration: Resp=16 B/min, SpO2=99 %, O2=0 lpm 13:37:51 Reference ECG taken 13:41:45 HR=58 bpm, MSCW=203/48 mmhg, SpO2=97.0 %, Resp=15 B/min, Pain=0, Tony=10, Carlisle=2 13:42:20 Bilateral groins prepped with 2% chlorhexidine, and with a 3 min. waiting time. 13:46:48 HR=61 bpm, DSSV=627/55 mmhg, SpO2=99.0 %, Resp=13 B/min, Pain=0, Tony=10, Carlisle=2 13:48:11 paged 13:49:06 Pressure channel 1 zeroed. 13:51:47 HR=65 bpm, HEXQ=131/55 mmhg, MqK7=733.0 %, Resp=17 B/min, Pain=0, Tony=10, Carlisle=2 13:56:44 HR=67 bpm, BANY=597/60 mmhg, SpO2=99.0 %, Resp=14 B/min, Pain=0, Tony=10, Carlisle=2 13:57:21 MD arrived. 14:01:45 HR=61 bpm, SJSY=225/59 mmhg, SpO2=99.0 %, Resp=12 B/min, Pain=0, Tony=10, Carlisle=2 Time Out. Correct patient, correct procedure,correct physician, power injector not loaded with contrast with surgical 14:02:45 team present. Time Out Concurred by MD, individual staff in procedure 14:03:20 Case Start Patient arrived on 20 mL 1% XYLOCAINE given by Montrell Simmons in Right Groin via Subcutaneous . Ordered by 14:03:22 Montrell Simmons. 14:03:34 Access site was Right Femoral Artery. 14:03:43 A SHEATH, FR6.5 PRELUDE 11CM FR 6.5 was advanced into the Fem Art (right) using the Percuta neous technique. 12.5 mcg FENTANYL given in lab by Sony Morales RN in Left Antecubital via Peripheral IV. Ord ered by Troy, 14:03:53 Montrell. 14:04:09 Saturation: Site=FA (Femoral Artery) , O2=97.6 %, Hgb=14 gm/dl, Condition=Condition 1. Used in calculation. 14:04:48 Access site was Right Femoral Vein. 14:04:56 A SHEATH, FR5.5 PRELUDE 11CM FR 5 was advanced into the Fem Vein (right) using the Percutan eous technique. 14:05:40 A catheter was inserted via Fem Art (right) Recorded Pressure: PCW, HR=60, Condition=Condition 1 14:07:10 (Pulmonary Capillary Wedge) PCW [id number] 14:07:27 HR=61 bpm, GZYH=392/58 mmhg, CdP0=859.0 %, Resp=26 B/min, Pain=0, Tony=10, Carlisle=2 Recorded Pressure: MPA, HR=61, Condition=Condition 1 14:07:29 (Main Pulmonary Artery) MPA 11/06/17 14:08:12 Saturation: Site=PA (Pulmonary Artery) , O2=70.6 %, Hgb=14 gm/dl, Condition=Condition 1. Us ed in calculation. Recorded Pressure: RV, HR=73, Condition=Condition 1 14:08:36 (Right Ventricle) RV 3078 Recorded Pressure: RA, HR=59, Condition=Condition 1 14:08:49 (Right Atrium) RA 14:10:28 Saturation: Site=RA (Right Atrium) , O2=67.7 %, Hgb=14 gm/dl, Condition=Condition 1. Used i n calculation. 14:11:44 Catheter was removed A XB 3.5 GUIDE CATHETER FR 6 was advanced over a wire. OMNIPAQUE, 350 MG, 150ML 150ML was used for 14:11:46 injections. 14:11:50 HR=59 bpm, OIZK=258/52 mmhg, SpO2=99.0 %, Resp=19 B/min, Pain=0, Tony=10, Carlisle=2 Recorded Pressure: Ao, HR=66, Condition=Condition 1 14:12:30 (Aorta) Ao 102/48/71 14:13:29 The LCA was injected and visualized at various angles. OMNIPAQUE, 350 MG, 150ML 150ML used . Patient arrived on 6900 units HEPARIN given by Sony Morales RN in Left Antecubital via Perip heral IV. Ordered by 14:13:52 Montrell Simmons. 14:14:59 A PRIME WIRE, VERRATA 185CM 185CM was inserted via Fem Art (right). 14:16:51 HR=64 bpm, JEZP=530/53 mmhg, SpO2=99.0 %, Resp=26 B/min, Pain=0, Tony=10, Carlisle=2 14:17:59 Interventional wire has crossed the lesion 14:18:17 Flow Wire was was placed in the LAD Mid. The FFR measures 0.23 percent. The IFR measures ~I FR~ Percent. Patient arrived on 200 mcg NTG (IC) given by Alfonzo Rolle, RT(R) via Intra-coronary. Ordered by Troy, 14:19:19 Montrell. 14:21:41 Wire removed 14:21:46 HR=80 bpm, DBCG=863/62 mmhg, SpO2=97.0 %, Resp=13 B/min, Pain=0, Tony=10, Carlisle=2 14:22:15 Catheter was removed A JR 4.0 INFINITI CATHETER FR 4 was advanced over a wire. OMNIPAQUE, 350 MG, 150ML 150ML was us ed for 14:23:51 injections. Recorded Pressure: LV, HR=80, Condition=Condition 1 14:24:39 (Left Ventricle) LV 113/7/12 14:25:00 The LV was manually injected with 8 cc's and visualized. OMNIPAQUE, 350 MG, 150ML 150ML use d. Recorded Pressure: LV, Ao, HR=79, Condition=Condition 1 14:25:09 (Left Ventricle) LV 108/5/14, (Aorta) Ao 116/58/85 Recorded Pressure: Ao, HR=80, Condition=Condition 1 14:25:45 (Aorta) Ao 110/59/82 14:25:59 The RCA was injected and visualized at various angles. OMNIPAQUE, 350 MG, 150ML 150ML used . 14:26:09 Catheter was removed 14:26:15 Case End 14:26:47 HR=79 bpm, OENI=990/68 mmhg, SpO2=97.0 %, Resp=16 B/min, Pain=0, Tony=10, Carlisle=2 14:26:55 Activated Clotting Time Drawn Assessment: Final Case, HR=77 BPM, Rhythm=Sinus, YCQA=932/64 mmhg, Chest Pain=0, Edema=None, Color=Normal, Skin = Warm, Dry Right Pulses: Armen Ped=3, Femoral=3 14:27:48 Left Pulses: Armen Ped=3, Femoral=3 Neurological: State=Alert, Ox3, DIGGS Respiration: Resp=17 B/min, SpO2=96 %, O2=0 lpm 14:31:50 HR=80 bpm, XMTM=103/64 mmhg, SpO2=96.0 %, Resp=12 B/min, Pain=0, Tony=10, Carlisle=2 14:31:55 In the Fem Art (right) the SHEATH, FR6.5 PRELUDE 11CM FR 6.[address] by Alfonzo Duenas, RT(R). 14:32:05 In the Fem Vein (right) the SHEATH, FR5.5 PRELUDE 11CM FR [address] by Alfonzo Navarro RT(R). 14:32:24 ACT (Normal Range 90-180) = 287 14:33:32 Sterile dressing applied to site 14:33:34 No case complications noted. 14:33:38 Cine recording checked. 14:34:14 Bedside Report will be given. 14:34:18 A Left and Right Heart Cath was performed. 14:35:03 Vitals capture stopped. 12.5 mcg FENTANYL given in lab by Sony Morales RN in Left Antecubital via Peripheral IV. Ord ered by Troy, 14:37:21 Montrell. 14:37:43 [facility] - Contrast Media Used In Study Contrast Total Opened (mL) Total Used (mL) Total Wasted (mL) Omnipaque 150 30 120 End Study - Maximum Contrast Load Max Contrast Load (mL) 352.1 End Study - Radiation Exposure Fluoro Time (minutes) 3.9 End Study - Patient Disposition Complications Transferred To Interventional Outcome No Outpatient Bed No attempt made
[2017-03-10] MEDS ORDERED: NITROGLYCERIN 2% OINT 1 GM PACKET ONE (14:43)
[2017-03-10] MEDS ORDERED: SODIUM CHLORIDE 0.9% FLUSH 10 ML FLUSH PRN (15:00)
[2017-03-10] MEDS ORDERED: MISC INFORMATION XX ONE (15:00)
[2017-03-10] MEDS ORDERED: IOHEXOL 350 MG/ML 50 ML BTL (for Cath Lab) OTHER ONE (15:25)
[2017-03-10] MEDS: SODIUM CHLORIDE 0.9% FLUSH 10 ML FLUSH SCH (21:00)
[2017-03-10] MEDS ORDERED: ATORVASTATIN 10 MG TAB PO SCH (21:00)
[2017-03-10] MEDS: CARVEDILOL 3.125 MG TAB PO SCH (21:18)
[2017-03-11] VITALS (10 sets, daily range): BP systolic 117–124; BP diastolic 57–68; PULSE 59–79; RESP 18; TEMP 97.7–97.9; O2SAT 67–95
[2017-03-11 05:47] LABS: AUTOMATED NEUTROPHIL # 7.9 TH/MM3 (1.8-7.7); BASOPHIL # 0.1 TH/MM3 (0-0.2); BASOPHIL % 1.1 % (0.0-2.0); EOSINOPHIL # 0.3 TH/MM3 (0-0.4); EOSINOPHIL % 2.4 % (0.0-4.0); HEMATOCRIT 38.1 % (39.0-51.0); HEMO FLAGS DIFF FINAL; LYMPH % 27.1 % (9.0-44.0); LYMPHOCYTE # 3.4 TH/MM3 (1.0-4.8); MEAN CORPUSCULAR HEMOGLOBIN 26.8 PG (27.0-34.0); MEAN CORPUSCULAR HGB CONC 33.5 % (32.0-36.0); MONO % 6.4 % (0.0-8.0); PLATELET COUNT 238 TH/MM3 (150-450); RED BLOOD COUNT 4.76 MIL/MM3 (4.50-5.90); RED CELL DISTRIBUTION WIDTH 14.6 % (11.6-17.2); WHITE BLOOD COUNT 12.6 TH/MM3 (4.0-11.0)
[2017-03-11 06:00] LABS: HDL CHOLESTEROL 42.8 MG/DL (40.0-60.0); POTASSIUM 4.1 MEQ/L (3.5-5.1)
--- NOTE | 2017-03-11 07:09 | MA ---
cc: WES MCCARTNEY M.D. DATE 03/10/2017 PROCEDURE PERFORMED Right heart catheterization, left heart catheterization, FFR of the LAD, coronary angiography, left ventriculography. INDICATIONS Recurrent resting angina, [place] [employer] class IV angina, unstable angina status post PCI x3 of the LAD, [place] Heart [employer] class IV CHF, coronary artery disease status post STEMI, cardiomyopathy, need to reassess the LAD with FFR. PROCEDURE The patient was brought to the cardiac catheterization laboratory, prepped and draped in the usual sterile fashion. 10 cc's of 1% plain lidocaine was used to locally anesthetize the right common femoral artery and vein area. A 6-Russian sheath placed in the femoral artery, 5-Russian sheath placed in the right common femoral vein. Right heart catheterization was performed first with following findings: Pulmonary capillary wedge pressure 16/12-10. PA pressure 26/8-17. RV pressure 37/7-8. RA pressure 10/7-5. FA sat on room air 97.6%. PA sat 70.6%. RA sat 67.7% Cardiac output by Leena 5.4 liters per minute. Cardiac Index by Leena 2.5 liters per meter squared per minute. SVR 1191 dynes. The patient was given 70 units/kilo of heparin. The ACT was 287. A 6-Russian XB 3.5 guide was placed into the left main ostium. A 0.014 inch [place] pressure wire was placed into the proximal LAD. Introducer was removed. The guide catheter was thoroughly flushed 20 cc of normal saline. Pressure waveforms were normalized. The initial coronary angiogram showed the left main had no significant disease. Left circumflex had mild diffuse disease in the proximal segment up to 10-20% angiographically. The LAD has mild diffuse disease in the proximal mid segment up to 10% angiographically. The stents appeared to be widely patent in the proximal mid segment. The vessel tapered from probably a 35 mm vessel proximally to a probably 2.0 to 1.5 mm vessel in the mid segment and then distally it is probably a 1.0 to 0.75 mm vessel. The first diagonal artery is a medium-sized vessel with no significant obstructive disease. I placed the 0.014 [place] pressure wire into the distal LAD. The patient developed chest pain. The IFR began to drop precipitously down to 0.23. The waveforms were not recorded at this point in time. This was not the protocol, but certainly was observed. Re-angiography revealed severe diffuse spasm in the [id number] LAD. The patient was given 200 mcg of intracoronary nitroglycerin into the left main. Within 30 seconds, the IFR began to increase significantly up to 0.90. The patient's chest pain was relieved. There was no significant obstructive disease. I did not choose to perform FFR with adenosine given the hemodynamic instability and severe chest pain associated with the spasm of the LAD as this appeared to be the most reasonable likely cause of the patient's severe intermittent resting chest pain, intermittent CHF symptoms. We then used a 4-Russian JR-4 diagnostic catheter to perform left ventriculography and right coronary angiography. LV pressure is 108/5-14. Ejection fraction 55%. Anterior wall appeared to be rajni normally in particular. The right coronary is large and dominant, appears to be slightly ectatic with mild diffuse disease in the proximal mid segment up to 30% angiographic. The mid segment has a focal 55% stenosis. The distal segment again appears to be ectatic versus diffuse disease more proximally. The distal vessel is probably 4-1/2 to 5 mm in diameter. Ostial PDA has a 30% stenosis followed by a proximal 20-30% stenosis. Right JAKUB is relatively small with no significant obstructive disease. CONCLUSION 1. [place] [employer] class IV angina, unstable angina with [place] Heart [employer] class IV CHF symptoms, culprit severe spasm in the entire mid to distal LAD with an IFR of 0.23 relieved at 0.90-200 mcg of intracoronary Nipride associated with hypotension and resting angina, relieved again with nitro. 2. Widely patent stents in the proximal mid LAD. 3. Otherwise mild to moderate three-vessel coronary disease in a right-dominant system. 4. Normal LV systolic function, Ejection fracture 35%. 5. Normal right heart pressures and LV pressures consistent with euvolemic status. 6. Recommend continued dual antiplatelet therapy with aggressive statin therapy, optimal medical therapy for previous cardiomyopathy including ELYSSA inhibitor, beta edgardo, Aldactone p.r.n. Lasix. We will also initiate long-acting nitroglycerin and also give the patient a prescription for short-acting nitroglycerin. MD KAYLA Foster/TONYL /2:35 PM /6:48 AM
[2017-03-11] MEDS: CARVEDILOL 3.125 MG TAB PO SCH (08:22)
[2017-03-11] MEDS: SODIUM CHLORIDE 0.9% FLUSH 10 ML FLUSH SCH (08:23)
[2017-03-11] MEDS ORDERED: ASPIRIN 81 MG CHEW TAB PO SCH (09:00)
[2017-03-11] MEDS ORDERED: RAMIPRIL 2.5 MG CAP PO SCH (09:00)
[2017-03-11] MEDS ORDERED: CLOPIDOGREL 75 MG TAB PO SCH (09:00)
--- NOTE | 2017-03-11 09:18 | PD.CARD.PN ---
Subjective Subjective Remarks ctsp due to c/o chest pain, now chest pain free Objective Vital Signs / I&O Vital Signs Date Time Temp Pulse Resp B/P Pulse Ox O2 Delivery O2 Flow Rate FiO2 03/11/17 09:03 79 03/11/17 08:37 97.9 67 18 124/68 67 03/11/17 08:37 59 03/11/17 06:30 63 03/11/17 05:05 65 03/11/17 04:17 59 03/11/17 03:36 60 03/11/17 03:00 97.7 64 117/57 95 03/11/17 02:00 68 03/11/17 01:00 72 03/11/17 00:00 74 03/10/17 23:00 97.7 74 110/58 95 03/10/17 23:00 75 03/10/17 22:00 84 03/10/17 21:00 78 03/10/17 20:00 80 03/10/17 19:00 97.8 81 107/54 96 03/10/17 19:00 84 03/10/17 18:03 78 03/10/17 17:20 78 03/10/17 17:00 98.3 73 24 112/53 94 03/10/17 11:33 98.3 73 18 113/66 97 I/O 03/10/17 03/10/17 03/10/17 03/11/17 03/11/17 03/11/17 07:00 15:00 23:00 07:00 15:00 23:00 Intake Total 240 ml Output Total 625 ml Balance -385 ml Intake Oral 240 ml Output Urine Total 625 ml # Bowel Movements 0 Laboratory GENERAL: SKIN: Warm and dry. HEAD: Normocephalic. EYES: No scleral icterus. No injection or drainage. NECK: Supple, trachea midline. No JVD or lymphadenopathy. CARDIOVASCULAR: Regular rate and rhythm without murmurs, gallops, or rubs. RESPIRATORY: Breath sounds equal bilaterally. No accessory muscle use. GASTROINTESTINAL: Abdomen soft, non-tender, nondistended. MUSCULOSKELETAL: No cyanosis, or edema. BACK: Nontender without obvious deformity. No CVA tenderness. Laboratory Tests Test 03/10/17 03/11/17 11:20 05:32 White Blood Count 13.0 TH/MM3 12.6 TH/MM3 Red Blood Count 5.36 MIL/MM3 4.76 MIL/MM3 Hemoglobin 14.3 GM/DL 12.8 GM/DL Hematocrit 43.3 % 38.1 % Mean Corpuscular Volume 80.7 FL 80.0 FL Mean Corpuscular Hemoglobin 26.6 PG 26.8 PG Mean Corpuscular Hemoglobin 33.0 % 33.5 % Concent Red Cell Distribution Width 14.1 % 14.6 % Platelet Count 284 TH/MM3 238 TH/MM3 Mean Platelet Volume 8.1 FL 7.9 FL Neutrophils (%) (Auto) 67.3 % 63.0 % Lymphocytes (%) (Auto) 24.0 % 27.1 % Monocytes (%) (Auto) 5.6 % 6.4 % Eosinophils (%) (Auto) 2.2 % 2.4 % Basophils (%) (Auto) 0.9 % 1.1 % Neutrophils # (Auto) 8.8 TH/MM3 7.9 TH/MM3 Lymphocytes # (Auto) 3.1 TH/MM3 3.4 TH/MM3 Monocytes # (Auto) 0.7 TH/MM3 0.8 TH/MM3 Eosinophils # (Auto) 0.3 TH/MM3 0.3 TH/MM3 Basophils # (Auto) 0.1 TH/MM3 0.1 TH/MM3 CBC Comment DIFF FINAL DIFF FINAL Differential Comment Prothrombin Time 11.4 SEC Prothromb Time International 1.0 RATIO Ratio Activated Partial 30.5 SEC Thromboplast Time Sodium Level 138 MEQ/L 138 MEQ/L Potassium Level 4.4 MEQ/L 4.1 MEQ/L Chloride Level 106 MEQ/L 105 MEQ/L Carbon Dioxide Level 24.7 MEQ/L 24.0 MEQ/L Anion Gap 7 MEQ/L 9 MEQ/L Blood Urea Nitrogen 27 MG/DL 25 MG/DL Creatinine 1.40 MG/DL 1.09 MG/DL Estimat Glomerular Filtration 51 ML/MIN 68 ML/MIN Rate Random Glucose 91 MG/DL 100 MG/DL Calcium Level 9.2 MG/DL 8.8 MG/DL Total Creatine Kinase 51 U/L Triglycerides Level 106 MG/DL Cholesterol Level 139 MG/DL LDL Cholesterol 75 MG/DL HDL Cholesterol 42.8 MG/DL Cholesterol/HDL Ratio 3.24 RATIO Assessment and Plan Problem List: (1) Chest pain (2) CAD (coronary artery disease) (3) Coronary artery spasm Assessment and Plan 1.) Coronary spasm - relieved with ntg, ok to dc on imdur 60 mg qd, hold lasix, continue all other home meds, d/w patient and nurse. f/u with me 03/15/17 Montrell Simmons MD March 11, 2017 09:18
[2017-03-11] MEDS ORDERED: ISOSORBIDE MONONITRATE 60 MG TAB PO SCH (10:00)
--- NOTE | 2017-03-12 14:53 | EKG ---
Date Performed: 03/11/2017 Time Performed: 05:11:48 PTAGE: 61 years EKG: Sinus rhythm Anteroseptal T wave changes are nonspecific Borderline ECG Since PREVIOUS TRACING 03/10/2017, axis somewhat less leftward, otherwise no significant lozada e. PREVIOUS TRACIN03/10/2017 11.44 DOCTOR: Savage Raman Interpretating Date/Time 03/12/2017 14:52:14
== END 2017-03-11 10:09 | disposition home or self-care (01) ==
LOC: HCAT 10:49 → HDIC 10:50 → HCIS 16:57 → HCAT 03-11 10:09 → HCIS 03-11 10:58
PROVIDERS: ATTEND Internal Medicine Interventional Cardiology
DX: I25.110 Atherosclerotic heart disease of native coronary artery with unstable angina pectoris (principal); I50.9 Heart failure, unspecified; I95.9 Hypotension, unspecified; I45.9 Conduction disorder, unspecified; Z98.61 Coronary angioplasty status; I42.9 Cardiomyopathy, unspecified; G47.30 Sleep apnea, unspecified; E78.00 Pure hypercholesterolemia, unspecified
CPT/HCPCS: 80048; 80061; 82550; 85002; 85025; 85610; 85730; 93005; 93456; 93571; C1769; C1887; C1893; J0153; J1644; J3010; 85347; Q9967

== ENCOUNTER 2018-08-02 22:35 | Observation (INO) ==
[2018-08-02] MEDS ORDERED: Morphine Inj 4 MG/ML Vial IV.PUSH ONE (22:44)
--- NOTE | 2018-08-02 22:53 | ED ---
HPI General Chief Complaint: Chest Pain Stated Complaint: Chest Pain Time Seen by Provider: 08/02/18 22:44 Source: patient Mode of arrival: wheelchair Limitations: no limitations History of Present Illness HPI narrative: Patient is a 62-year-old male, past medical history significant for coronary artery disease with 3 previous stents, SVT status post ablation, who presents with complaint of chest pain for the last 2 hours. He states that he was at rest doing nothing in particular when he had sudden onset of chest pain that goes to his neck. It has been constant and he has had sharp spasms of pain that worsened. This has happened before. He took 2 nitroglycerin prior to arrival which did not relieve his symptoms. He denies any leg swelling or immobilization. He denies any cough, fever, chills. He is on 162 mg of aspirin and Plavix daily. complaint: Reports chest pain STEMI Alert: No Onset (ago): hour(s) Duration: constant Onset: during rest Pain location: Reports substernal Severity: moderate Quality: Reports heaviness Pain radiation: Reports neck Relieving factors: nothing Exacerbating factors: nothing Associated symptoms: Reports nausea Treatments prior to arrival chest pain: Reports aspirin and nitroglycerin Related Data Home Medications Medication Instructions Recorded Confirmed aspirin [Aspir-81] 162 mg PO DAILY 08/02/18 08/02/18 atorvastatin 80 mg PO DAILY 08/02/18 08/02/18 carvedilol 3.125 mg PO BID 08/02/18 08/02/18 cilostazol 100 mg PO BID 08/02/18 08/02/18 clopidogrel 75 mg PO DAILY 08/02/18 08/02/18 furosemide 40 mg PO DAILY 08/02/18 08/02/18 hydralazine 25 mg PO TID 08/02/18 08/02/18 ranitidine HCl 150 mg PO TID 08/02/18 08/02/18 spironolactone 25 mg PO DAILY 08/02/18 08/02/18 Allergies Allergy/AdvReac Type Severity Reaction Status Date / Time No Known Allergies Allergy Verified 08/02/18 22:46 Review of Systems ROS: all other systems reviewed are negative [facility] Medical History Medical History History of heart attack (Acute) History of high blood pressure (Acute) History of high cholesterol (Acute) Hx of supraventricular tachycardia (Acute) Surgical History Surgical History History of heart artery stent (Acute) History of prior ablation treatment (Acute) Social History Social History Substance History: No History of Abuse Smoking Status: Unknown if ever smoked How Often Do You Have a Drink Containing Alcohol: Never Recent Travel in [facility] within the Last 8 Weeks: No Recent Out of Country Travel within the Last 8 Weeks: No Exam Narrative Exam Narrative: GENERAL: Well-appearing male clutching his chest SKIN: Focused skin assessment warm/dry. No rashes nor diaphoresis. HEAD: Atraumatic. Normocephalic. EYES: Pupils equal and round. No scleral icterus. No injection or drainage. ENT: No nasal bleeding or discharge. Mucous membranes pink and moist. NECK: Trachea midline. No JVD. CARDIOVASCULAR: Regular rate and rhythm. No murmur appreciated. Intact and equal peripheral pulses. RESPIRATORY: No accessory muscle use. Clear to auscultation. Breath sounds equal bilaterally. GASTROINTESTINAL: Abdomen soft, non-tender, nondistended. Hepatic and splenic margins not palpable. MUSCULOSKELETAL: No obvious deformities. No clubbing. No cyanosis. No edema. NEUROLOGICAL: Awake and alert. No obvious cranial nerve deficits. Motor grossly within normal limits. Normal speech. PSYCHIATRIC: Appropriate mood and affect; insight and judgment normal. Course Reevaluation(s) Reevaluation #1: Patient feels slightly better, but still having spasms of pain. Second dose of morphine ordered. Time: 23:33 Initial Documented Vital Signs Temperature 98.5 F 08/02/18 22:41 Pulse Rate 100 H 08/02/18 22:41 Respiratory Rate 22 08/02/18 22:41 Blood Pressure 153/75 H 08/02/18 22:41 Pulse Oximetry 98 08/02/18 22:41 Last Documented Vital Signs Temperature 98.5 F 08/02/18 22:41 Pulse Rate 92 H 08/02/18 23:45 Respiratory Rate 20 08/02/18 23:45 Blood Pressure 140/63 08/02/18 23:45 Pulse Oximetry 96 08/02/18 23:45 Medical Decision Making MDM Narrative Medical decision making narrative: Patient is a 62-year-old male who presents with complaint of chest pain that has been constant over the last 2 hours and has worsening spasms of pain (with history of coronary artery spasms) not relieved with 2 of his home nitro. He took 162 mg of aspirin earlier today and has been given another 162 mg. EKG shows sinus tachycardia without acute ischemic changes. Repeat EKG unchanged except its no longer tachycardic. Labs unremarkable with normal troponin. CXR also unremarkable. His pain has been intermittently recurring and resolving. He has been admitted for further evaluation and management. Medical Screen Exam Complete: Yes Emergency Medical Condition: Yes Differential Diagnosis Differential Diagnosis: Differential diagnosis includes but is not limited to acute coronary syndrome, Prinzmetal's angina, pneumothorax, pneumonia, musculoskeletal pain. Medical Records Medical records reviewed: Yes I reviewed the patient's medical records. Lab Data Result diagrams: 08/02/18 22:45 08/02/18 22:45 Lab Results 08/02/18 08/02/18 08/02/18 Range/Units 22:45 22:45 22:45 CBC w Diff Auto diff final WBC 9.8 (4.0-11.0) th/mm3 RBC 5.40 (4.50-5.90) mil/mm3 Hgb 15.1 (13.0-17.0) gm/dL Hct 45.0 (39.0-51.0) % MCV 83.3 (80.0-100.0) fL MCH 28.0 (27.0-34.0) pg MCHC 33.6 (32.0-36.0) % RDW 14.0 (11.6-17.2) % Plt Count 331 (150-450) th/mm3 MPV 8.0 (7.0-11.0) fL Neut % (Auto) 64.8 (16.0-70.0) % Lymph % (Auto) 25.8 (9.0-44.0) % Mckinley % (Auto) 5.3 (0.0-8.0) % Eos % (Auto) 2.4 (0.0-4.0) % Baso % (Auto) 1.7 (0.0-2.0) % Neut # (Auto) 6.4 (1.8-7.7) th/mm3 Lymph # (Auto) 2.5 (1.0-4.8) th/mm3 Mckinley # (Auto) 0.5 (0.0-0.9) th/mm3 Eos # (Auto) 0.2 (0.0-0.4) th/mm3 Baso # (Auto) 0.2 (0.0-0.2) th/mm3 WBC Differential . Differential Comment . PT 9.8 (9.8-11.6) sec INR 1.0 Ratio APTT 26.9 (24.3-30.1) sec Sodium 142 (136-145) meq/L Potassium 4.4 (3.5-5.1) meq/L Chloride 111 H (98-107) meq/L Carbon Dioxide 24.2 (21.0-32.0) meq/L Anion Gap 7 (5-15) meq/L BUN 13 (7-18) mg/dL Creatinine 1.20 (0.60-1.30) mg/dL Estimated GFR 61 L (>89) mL/min Random Glucose 99 (74-106) mg/dL Calcium 8.8 (8.5-10.1) mg/dL Total Bilirubin 0.4 (0.2-1.0) mg/dL AST 15 (15-37) U/L ALT 17 (12-78) U/L Alkaline Phosphatase 87 (45-117) U/L Troponin I 0.02 (0.02-0.05) ng/mL B-Natriuretic Peptide (0-100) pg/mL Total Protein 7.0 (6.4-8.2) g/dL Albumin 3.6 (3.4-5.0) g/dL 08/02/18 Range/Units 22:45 CBC w Diff WBC (4.0-11.0) th/mm3 RBC (4.50-5.90) mil/mm3 Hgb (13.0-17.0) gm/dL Hct (39.0-51.0) % MCV (80.0-100.0) fL MCH (27.0-34.0) pg MCHC (32.0-36.0) % RDW (11.6-17.2) % Plt Count (150-450) th/mm3 MPV (7.0-11.0) fL Neut % (Auto) (16.0-70.0) % Lymph % (Auto) (9.0-44.0) % Mck[place]ley % (Auto) (0.0-8.0) % Eos % (Auto) (0.0-4.0) % Baso % (Auto) (0.0-2.0) % Neut # (Auto) (1.8-7.7) th/mm3 Lymph # (Auto) (1.0-4.8) th/mm3 Mck[place]ley # (Auto) (0.0-0.9) th/mm3 Eos # (Auto) (0.0-0.4) th/mm3 Baso # (Auto) (0.0-0.2) th/mm3 WBC Differential Differential Comment PT (9.8-11.6) sec INR Ratio APTT (24.3-30.1) sec Sodium (136-145) meq/L Potassium (3.5-5.1) meq/L Chloride (98-107) meq/L Carbon Dioxide (21.0-32.0) meq/L Anion Gap (5-15) meq/L BUN (7-18) mg/dL Creatinine (0.60-1.30) mg/dL Estimated GFR (>89) mL/min Random Glucose (74-106) mg/dL Calcium (8.5-10.1) mg/dL Total Bilirubin (0.2-1.0) mg/dL AST (15-37) U/L ALT (12-78) U/L Alkaline Phosphatase (45-117) U/L Troponin I (0.02-0.05) ng/mL B-Natriuretic Peptide 137 H (0-100) pg/mL Total Protein (6.4-8.2) g/dL Albumin (3.4-5.0) g/dL Imaging Data Radiologist's impression: Chest X-Ray 08/02/18 22:44 CONCLUSION: Cardiomegaly. No acute pulmonary disease. ECG Data EKG Prior to Arrival: No Attestation: I personally reviewed and interpreted this ECG as follows: (Sinus tachycardia at a rate of 103 bpm. Baseline is rather erratic but there are no acute ST or T wave changes.) Discharge Plan Discharge Details Diagnosis: Chest pain, rule out acute myocardial infarction Physicians Team ED Provider: Jenifer Johnson Primary Care Provider: Primary Care Physici,No Rxs /Orders / Referrals /Forms Prescriptions: No Action cilostazol 100 mg Tablet 100 mg PO BID RF: 0 atorvastatin 80 mg Tablet 80 mg PO DAILY RF: 0 hydralazine 25 mg Tablet 25 mg PO TID RF: 0 clopidogrel 75 mg Tablet 75 mg PO DAILY RF: 0 aspirin [Aspir-81] 81 mg Tablet,Delayed Release (Dr/Ec) 162 mg PO DAILY RF: 0 spironolactone 25 mg Tablet 25 mg PO DAILY RF: 0 carvedilol 3.125 mg Tablet 3.125 mg PO BID RF: 0 ranitidine HCl 150 mg Tablet 150 mg PO TID RF: 0 furosemide 20 mg Tablet 40 mg PO DAILY RF: 0 Discharge Interventions Interventions: Vital Signs Last Done: 08/02/18 23:45 Status ED Status: With Doctor
[2018-08-02 22:56] LABS: Baso # (Auto) 0.2 th/mm3 (0.0-0.2); Baso % (Auto) 1.7 % (0.0-2.0); Eos # (Auto) 0.2 th/mm3 (0.0-0.4); Eos % (Auto) 2.4 % (0.0-4.0); Hemoglobin 15.1 gm/dL (13.0-17.0); Lymph # (Auto) 2.5 th/mm3 (1.0-4.8); Lymph % (Auto) 25.8 % (9.0-44.0); Mean Corpuscular HGB Conc 33.6 % (32.0-36.0); Mean Corpuscular Volume 83.3 fL (80.0-100.0); Mono # (Auto) 0.5 th/mm3 (0.0-0.9); Mono % (Auto) 5.3 % (0.0-8.0); Neut # (Auto) 6.4 th/mm3 (1.8-7.7); Neut % (Auto) 64.8 % (16.0-70.0); Platelet Count 331 th/mm3 (150-450); White Blood Count 9.8 th/mm3 (4.0-11.0)
[2018-08-02 23:20] LABS: Chloride 111 meq/L (98-107); Potassium 4.4 meq/L (3.5-5.1); Sodium 142 meq/L (136-145)
--- NOTE | 2018-08-02 23:21 | XR ---
EXAM DATE: 08/02/2018 10:44 PM EDT AGE/SEX: 62 years / Male INDICATIONS: Chest pain. CLINICAL DATA: This is the patient's initial encounter. Patient reports that signs and symptoms have been present for 1 day and indicates a pain score of 5/10. MEDICAL/SURGICAL HISTORY: Hypertension. Myocardial infarction. Congestive heart failure. Anjelica nary artery stent. COMPARISON: [facility] [place], CHEST PA & LAT, 02/26/2017. . FINDINGS: The cardiac silhouette is enlarged in transverse diameter. The lungs are free of acute parenchymal op acity. No effusions are identified. There is parenchymal scarring on the left. CONCLUSION: Cardiomegaly. No acute pulmonary disease. Electronically signed by: Howie Rojas MD 08/02/2018 11:19 PM EDT
[2018-08-02 23:23] LABS: Calcium 8.8 mg/dL (8.5-10.1)
[2018-08-02 23:24] LABS: Albumin 3.6 g/dL (3.4-5.0); Anion Gap 7 meq/L (5-15); Blood Urea Nitrogen 13 mg/dL (7-18); Carbon Dioxide 24.2 meq/L (21.0-32.0); Glucose,Random 99 mg/dL (74-106)
[2018-08-02 23:26] LABS: Activated Partial Thrombo Time 26.9 sec (24.3-30.1); Prothrombin Time 9.8 sec (9.8-11.6)
[2018-08-02 23:27] LABS: Alanine Aminotransferase 17 U/L (12-78); Aspartate Aminotransferase 15 U/L (15-37); Glomerular Filtration Rate 61 mL/min (>89)
[2018-08-02 23:30] LABS: Alkaline Phosphatase 87 U/L (45-117)
[2018-08-02 23:32] LABS: Troponin I 0.02 ng/mL (0.02-0.05)
[2018-08-02] MEDS ORDERED: Morphine Sulfate Inj 8 MG/ML Vial IV.PUSH ONE (23:32)
[2018-08-02] MEDS ORDERED: Ketorolac Inj 30 MG/ML (IVP) Vial IV.PUSH ONE (23:33)
[2018-08-03] MEDS: Heparin - SQ 10,000 UNITS/ML Vial SQ SCH ×3 (00:10→16:16)
[2018-08-03] MEDS: Sod Chloride 0.9% Inj 1,000 ML IV.CONT SCH ×2 (00:10→09:53)
[2018-08-03 03:07] LABS: Troponin I 0.03 ng/mL (0.02-0.05)
--- NOTE | 2018-08-03 09:32 | P.HP ---
History of Present Illness Primary Care Physician: No Primary Care Physician Chief Complaint: Chest pain History of Present Illness: This is a pleasant 62-year-old male patient with a known medical history of CAD with multiple cardiac stents, SVT status post ablation as well as hyperlipidemia who presented to the ED with complaints of chest pain. Patient states that this chest pain started last evening while at rest, it is midsternal in nature and radiates to his neck and left arm. He states that he relates this pain to his previous NE in the past. He does admit to associated shortness of breath, sweating, nausea and vomiting with the pain. He states that the pain has been pretty constant in nature with sharp spasms of pain that worsens intermittently without any known aggravating or alleviating factors. Patient does state that he takes up to 8 nitroglycerin tablets every day for his said symptoms. His last stress test was reportedly last July in 2016 which was reportedly negative. He also admits to taking double his dose of Lasix for a total of 80 mg daily due to feelings of holding water and reportedly gained 11 pounds over the past couple months. It should be noted that patient had an NE in December 2016 and that year had 3 cardiac stents placed. He was initially followed with Dr. Simmons, cardiology and has been referred to a medical laboratory manager in [place] for further recommendations of treatment. He last saw his MD in [place] roughly 2 months ago. No changes to medications. At the time of assessment patient states that his pain is still present, nitroglycerin cream does help his pain. He denies any recent illness including fever, chills, cough, headache, diarrhea or dysuria. - Diagnosis (1) Chest pain, rule out acute myocardial infarction Review of Systems All other systems reviewed negative except as stated in [facility] - History History Provided By: Patient - Medical History Medical History: Medical History (Last Reviewed 08/03/18 @ 13:15 by Maddi Donaldson) History of high blood pressure History of high cholesterol Hx of supraventricular tachycardia - Surgical History Surgical History: Surgical History (Last Reviewed 08/03/18 @ 13:15 by Maddi Donaldson) History of heart artery stent History of prior ablation treatment - Family History Family History: Family History (Last Updated 08/03/18 @ 13:15 by Maddi Donaldson) Other Family history non-contributory - Social History I have reviewed the patient's Social History: Yes - Tobacco History Second Hand Smoke Exposure: No Smoking Status: Never smoker - Alcohol History How Often Do You Have a Drink Containing Alcohol: Never - Substance Use History Substance History: No History of Abuse - Travel History Recent Travel in the [place] Within the Last 8 Weeks: No Recent Travel Out of the Country Within the Last 8 Weeks: No - Immunization History Tetanus Immunization: <5 Years Medications and Allergies Active Medications: Active Medications Acetaminophen (Tylenol) 500 mg PO Q4H PRN PRN Reason: HEADACHE Aspirin (Ecotrin) 162 mg PO DAILY [facility] Atorvastatin Calcium (Lipitor) 80 mg PO DAILY [facility] Carvedilol (Coreg) 3.125 mg PO BID [facility] Cilostazol (Pletal) 100 mg PO BID [facility] Clopidogrel Bisulfate (Plavix) 75 mg PO DAILY [facility] Famotidine (Pepcid) 20 mg PO BID [facility] Furosemide (Lasix) 40 mg PO DAILY [facility] Heparin Sodium (Porcine) (Heparin Inj) 5,000 units SQ Q8H [facility] Last Admin: 08/03/18 07:45 Dose: 5,000 units Hydralazine HCl (Apresoline) 25 mg PO TID [facility] Sodium Chloride (Ns Inj) 1,000 mls @ 100 mls/hr IV.CONT .Q10H [facility] Last Admin: 08/03/18 00:10 Dose: 100 mls/hr Ondansetron HCl (Zofran Inj) 4 mg IV.PUSH Q6H PRN PRN Reason: NAUSEA Sodium Chloride (Ns Flush) 2 ml IV.FLUSH UNSCH PRN PRN Reason: FLUSH AFTER USING IV ACCESS Sodium Chloride (Ns Flush) 2 ml IV.FLUSH BID [facility] Sodium Chloride (Ns Flush) 2 ml IV.FLUSH PRN PRN PRN Reason: FLUSH AFTER USING IV ACCESS Spironolactone (Aldactone) 25 mg PO DAILY [facility] Allergies Allergy/AdvReac Type Severity Reaction Status Date / Time No Known Allergies Allergy Verified 08/02/18 22:46 Home Medications Medication Instructions Recorded Confirmed Type aspirin [Aspir-81] 162 mg PO DAILY 08/02/18 08/02/18 History atorvastatin 80 mg PO DAILY 08/02/18 08/02/18 History carvedilol 3.125 mg PO BID 08/02/18 08/02/18 History cilostazol 100 mg PO BID 08/02/18 08/02/18 History clopidogrel 75 mg PO DAILY 08/02/18 08/02/18 History furosemide 40 mg PO DAILY 08/02/18 08/02/18 History hydralazine 25 mg PO TID 08/02/18 08/02/18 History ranitidine HCl 150 mg PO TID 08/02/18 08/02/18 History spironolactone 25 mg PO DAILY 08/02/18 08/02/18 History Exam Vital signs: Vital Signs 08/02/18 22:41 08/02/18 22:47 08/02/18 23:06 Temperature 98.5 F Pulse Rate 100 H Respiratory Rate 22 Blood Pressure 153/75 H 127/75 Pulse Oximetry 98 98 08/02/18 23:15 08/02/18 23:45 08/02/18 23:52 Temperature Pulse Rate 92 H 67 Respiratory Rate 20 18 Blood Pressure 140/63 136/68 Pulse Oximetry 96 96 08/03/18 01:28 08/03/18 04:35 08/03/18 05:18 Temperature Pulse Rate 75 54 L Respiratory Rate 17 15 Blood Pressure 125/62 116/52 L Pulse Oximetry 97 97 08/03/18 07:09 08/03/18 08:00 Temperature 97.4 F L 97.3 F L Pulse Rate 66 98 H Respiratory Rate 17 22 Blood Pressure 130/63 152/95 H Pulse Oximetry 97 96 Intake & Output 08/02/18 08/03/18 08/03/18 18:59 06:59 18:59 Intake Total 240 / 240 Balance 240 / 240 Weight 103.6 kg 108.1 kg Intake: Oral 240 / 240 Other: Weight On Admission 108.1 kg Narrative: GENERAL: Well-developed, well-nourished patient with present complaints of chest pain. SKIN: Warm and dry. No rash. HEAD: Normocephalic. Atraumatic. EYES: Pupils equal and round. No scleral icterus. No injection or drainage. ENT: No nasal bleeding or discharge. Mucous membranes pink and moist. NECK: Supple. Trachea midline. CARDIOVASCULAR: Regular rate and rhythm. S1, S2 noted. No murmur appreciated. RESPIRATORY: No accessory muscle use. Clear to auscultation. Breath sounds equal bilaterally. GASTROINTESTINAL: Abdomen soft, non-tender, nondistended. Normoactive bowel sounds x4. MUSCULOSKELETAL: No obvious deformities. Extremities without clubbing, cyanosis , or edema. NEUROLOGICAL: Awake and alert. No obvious cranial nerve deficits. Motor grossly within normal limits. 5/5 muscle strength in bilateral upper and lower extremities. Normal speech. PSYCHIATRIC: Appropriate mood and affect; insight and judgment normal. Results - Labs CBC & Chem 7: 08/02/18 22:45 08/02/18 22:45 Labs: Laboratory Results - last 24 hr 08/02/18 08/02/18 08/02/18 22:45 22:45 22:45 CBC w Diff Auto diff final WBC 9.8 RBC 5.40 Hgb 15.1 Hct 45.0 MCV 83.3 MCH 28.0 MCHC 33.6 RDW 14.0 Plt Count 331 MPV 8.0 Neut % (Auto) 64.8 Lymph % (Auto) 25.8 Frederick % (Auto) 5.3 Eos % (Auto) 2.4 Baso % (Auto) 1.7 Neut # (Auto) 6.4 Lymph # (Auto) 2.5 Frederick # (Auto) 0.5 Eos # (Auto) 0.2 Baso # (Auto) 0.2 WBC Differential . Differential Comment . PT 9.8 INR 1.0 APTT 26.9 Sodium 142 Potassium 4.4 Chloride 111 H Carbon Dioxide 24.2 Anion Gap 7 BUN 13 Creatinine 1.20 Estimated GFR 61 L Random Glucose 99 Calcium 8.8 Total Bilirubin 0.4 AST 15 ALT 17 Alkaline Phosphatase 87 Total Creatine Kinase Troponin I 0.02 B-Natriuretic Peptide Total Protein 7.0 Albumin 3.6 08/02/18 08/03/18 08/03/18 22:45 02:20 05:12 CBC w Diff WBC RBC Hgb Hct MCV MCH MCHC RDW Plt Count MPV Neut % (Auto) Lymph % (Auto) Frederick % (Auto) Eos % (Auto) Baso % (Auto) Neut # (Auto) Lymph # (Auto) Frederick # (Auto) Eos # (Auto) Baso # (Auto) WBC Differential Differential Comment PT INR APTT Sodium Potassium Chloride Carbon Dioxide Anion Gap BUN Creatinine Estimated GFR Random Glucose Calcium Total Bilirubin AST ALT Alkaline Phosphatase Total Creatine Kinase 48 Troponin I 0.03 0.03 B-Natriuretic Peptide 137 H Total Protein Albumin - Imaging Impressions Chest X-Ray 08/02/18 22:44 CONCLUSION: Cardiomegaly. No acute pulmonary disease. Caprini VTE Risk Assessment Caprini VTE Risk Assessment: Moderate/High Risk (score >= 2) Caprini Risk Assessment Model: Point Value = 1 Point Value = 2 Point Value = 3 Point Value = 5 Age 41-60 Minor surgery BMI > 25 kg/m2 Swollen legs Varicose veins or History of unexplained or recurrent spontaneous Oral contraceptives or hormone replacement Sepsis (< 1 month) Serious lung disease, including pneumonia (< 1 month) Abnormal pulmonary function Acute myocardial infarction Congestive heart failure (< 1 month) History of inflammatory bowel disease Medical patient at bed rest Age 61-74 Arthroscopic surgery Major open surgery (> 45 min) Laparoscopic surgery (> 45 min) Malignancy Confined to bed (> 72 hours) Immobilizing plaster cast Central venous access Age >= 75 History of VTE Family history of VTE Factor V Leiden Prothrombin [id number] Lupus anticoagulant Anticardiolipin antibodies Elevated serum homocysteine Heparin-induced thrombocytopenia Other congenital or acquired thrombophilia Stroke (< 1 month) Elective arthroplasty Hip, pelvis, or leg fracture Acute spinal cord injury (< 1 month) Prophylaxis Regimen: Total Risk Factor Score Risk Level Prophylaxis Regimen 0-1 Low Early ambulation 2 Moderate Order ONE of the following: *Sequential Compression Device (SCD) *Heparin 5000 units SQ BID 3-4 Higher Order ONE of the following medications: *Heparin 5000 units SQ TID *Enoxaparin/Lovenox 40 mg SQ daily (WT < 150 kg, CrCl > 30 mL/min) *Enoxaparin/Lovenox 30 mg SQ daily (WT < 150 kg, CrCl > 10-29 mL/min) *Enoxaparin/Lovenox 30 mg SQ BID (WT < 150 kg, CrCl > 30 mL/min) AND/OR *Sequential Compression Device (SCD) 5 or more Highest Order ONE of the following medications: *Heparin 5000 units SQ TID (Preferred with Epidurals) *Enoxaparin/Lovenox 40 mg SQ daily (WT < 150 kg, CrCl > 30 mL/min) *Enoxaparin/Lovenox 30 mg SQ daily (WT < 150 kg, CrCl > 10-29 mL/min) *Enoxaparin/Lovenox 30 mg SQ BID (WT < 150 kg, CrCl > 30 mL/min) AND *Sequential Compression Device (SCD) Assessment and Plan - Assessment (1) Chest pain, rule out acute myocardial infarction Code(s): R07.9 - Chest pain, unspecified Status: Acute - Plan This is a 62-year-old male patient with: Acute chest pain, rule out NE History of hypertension, chronic History of CAD with multiple cardiac stents History of SVT with previous ablation History of hyperlipidemia -Patient complaint of chest pain x 2 hours prior to presentation. States he usually takes 8 Nitroglycerin tablets on a daily basis for complaints of heart spasms. This has not relieved his pain the past couple days. -Patient has been admitted to the chest pain for observation. -Serial EKGs and serial troponins have been ordered for ruling out ACS purposes. ACS ruled out. -Serial troponins negative. EKG reviewed and showing controlled HR, with no ST changes to indicate ischemia, -CBC and BMP reviewed and essentially unremarkable. -CXR reviewed and not significant for any acute cardiopulmonary disease. -Has been following with a medical laboratory manager in [place], last seen a couple months ago. No new changes to his medications. ECHO has recently been done. -Continued on cardiac telemetry, monitor for any arrhythmias. None noted. -Continue on home medications including Plavix, aspirin and statin. -Patient has multiple risk factors with continued pain. Will perform a cardiac lexiscan to further rule out any ischemia. Further hospitalization will depend on nuclear imaging results. -Patient is stable at this time and agreeable to the plan. Congestive heart failure, unknown type, not in exacerbation -BNP is 137. No edema noted. Patient states he has been taking double of his Lasix dose for a total of 80 mg daily as well as double of his spirolactone. -Will continue on home prescribed dose and monitor closely. Monitor intake and output. -Recent ECHO has been done with medical laboratory manager per patient. DVT prophylaxis: SCDs. Heparin. Discharge Planning: Await clinical improvement and lexiscan results.
[2018-08-03] MEDS: Spironolactone 25 MG Tablet PO SCH (09:34)
[2018-08-03] MEDS: Cilostazol 50 MG Tablet PO SCH ×2 (09:34→22:42)
[2018-08-03] MEDS: Furosemide 40 MG Tablet PO SCH (09:35)
[2018-08-03] MEDS: Famotidine 20 MG Tablet PO SCH ×2 (09:35→22:42)
[2018-08-03] MEDS: hydrALAZINE 25 MG Tablet PO SCH ×3 (09:35→18:19)
[2018-08-03] MEDS: Acetaminophen 500 MG Tablet PO PRN ×2 (09:39→22:49)
[2018-08-03] MEDS ORDERED: Regadenoson Inj 0.4 MG/5 ML Syringe IV.PUSH ONE (15:18)
--- NOTE | 2018-08-03 15:56 | NM ---
EXAM DATE: 08/03/2018 2:28 PM EDT AGE/SEX: 62 years / Male INDICATIONS:Angina. Coronary artery disease Mid chest pain for one day. CLINICAL DATA: This is the patient's initial encounter. Patient reports that signs and symptoms have been present for 1 day and indicates a pain score of 5/10. MEDICAL/SURGICAL HISTORY: Hypertension. Coronary artery stent. COMPARISON: No prior exams available for comparison. No external comparison. DOSE: 11.0 mCi Tc 99m Myoview at rest 35.0 mCi [id number] at stress 0.4 mg Lexiscan STRESS SYMPTOMS: Shortness of breath. EJECTION FRACTION: 33 % TECHNIQUE: The patient underwent pharmacologic stress with infusion of prescribed dose. Continuous ECG tracing was monitored during stress. Gated SPECT imaging was performed after stress and conventi onal SPECT imaging was performed at rest. The examination was performed on a SPECT/CT scanner, both attenuation and non-corrected datasets were reviewed. FINDINGS: Distribution: The maximum perfused segment at stress is in the lateral wall. Perfusion Study: Large area of severely diminished perfusion involving the anterior wall septum and cardiac apex. No definite redistribution Gated Study: Septal akinesis. Significant anterior hypokinesis. Significant LV chamber dilatation. The ejection fraction is calculated at 33%. RISK CATEGORY: High (>3% Annual Morality Rate) CONCLUSION: 1. Large fixed septal, anterior and apical perfusion abnormality 2. Significant LV dysfunction and LV chamber dilatation Electronically signed by: Yohan Thomas MD 08/03/2018 3:55 PM EDT
[2018-08-03] MEDS: Morphine Sulfate Inj 2 MG/ML Vial IV.PUSH PRN (16:08)
[2018-08-03] MEDS ORDERED: Morphine Sulfate Inj 2 MG/ML Vial IV.PUSH ONE (16:15)
--- NOTE | 2018-08-03 17:00 | TR ---
Date Performed: 08/03/2018 Time Performed: 15:01:59 DOCTOR: Savage Raman DRUG LIST: CLINICAL HISTORY: CHEST PAIN REASON FOR TEST: Chest pain REASON FOR ENDING: OBSERVATION: CONCLUSION: COMMENTS: Lexiscan stress test was performed under standard four minute protocol. Radionuclide was injected one minute prior to ending the test. No electrocardiographic abormalities were present t o suggest ischemia. Nuclear imaging and interpretation are pending.
--- NOTE | 2018-08-03 18:08 | CT ---
EXAM DATE: 08/03/2018 5:33 PM EDT AGE/SEX: 62 years / Male INDICATIONS: Left chest pain and left arm pain x 2 days. Short of breath. CLINICAL DATA: This is the patient's initial encounter. Patient reports that signs and symptoms have been present for 2 days and indicates a pain score of 7/10. MEDICAL/SURGICAL HISTORY: Cardiovascular disease. Hypertension. Coronary artery stent. RADIATION DOSE: 21.27 CTDI (mGy) [place] [facility] [place]/22/2017. . TECHNIQUE: Volumetric scanning was performed using a multi-row detector CT scanner during bolus infu nella of 75 ml Omnipaque 350 (iohexol) nonionic water-soluble contrast as a single exam dose. The tee a was post processed with a variety of visualization algorithms including full volume maximum intensi ty projection and sliding thin slab reformation. Using automated exposure control and adjustment of the mA and/or kV according to patient size, radiation dose was kept as low as reasonably achievable t o obtain optimal diagnostic quality images. DICOM format image data is available electronically for review and comparison. FINDINGS: No filling defects identified to suggest pulmonary embolic disease. There is basilar and dependent airspace disease in the lungs. No pleural or pericardial effusion. Mod erate coronary calcifications. No acute findings in the upper abdomen. Stable 4 mm nodule right midlu ng since February 2017. CONCLUSION: 1. Negative for pulmonary embolus. 2. Subsegmental basilar dependent airspace disease in the lungs most characteristic of atelectasis or scarring. Electronically signed by: Eleno Brito MD 08/03/2018 6:07 PM EDT
--- NOTE | 2018-08-03 18:18 | ECG ---
Date Performed: 08/03/2018 Time Performed: 02:23:15 PTAGE: 62 years EKG: SINUS BRADYCARDIA INFERIOR MYOCARDIAL INFARCTION ABNORMAL ECG PREVIOUS TRACING : 08/02/2018 23.30 Since the previous tracing, no significant change noted DOCTOR: Alejandro Young Interpretating Date/Time 08/03/2018 18:18:10
--- NOTE | 2018-08-03 18:18 | ECG ---
Date Performed: 08/03/2018 Time Performed: 07:18:58 PTAGE: 62 years EKG: SINUS BRADYCARDIA NONSPECIFIC T-WAVE ABNORMALITY BORDERLINE ECG PREVIOUS TRACING : 08/03/2018 02.23 Since the previous tracing, no significant change noted DOCTOR: Alejandro Young Interpretating Date/Time 08/03/2018 18:17:40
--- NOTE | 2018-08-03 18:20 | ECG ---
Date Performed: 08/02/2018 Time Performed: 23:30:19 PTAGE: 62 years EKG: Sinus rhythm INFERIOR MYOCARDIAL INFARCTION ABNORMAL ECG PREVIOUS TRACING : 08/02/2018 22.43 Since the previous tracing, no significant change noted DOCTOR: Alejandro Young Interpretating Date/Time 08/15/2018 13:24:47
--- NOTE | 2018-08-03 18:21 | ECG ---
Date Performed: 08/02/2018 Time Performed: 22:43:53 PTAGE: 62 years EKG: SINUS TACHYCARDIA ABNORMAL RHYTHM ECG PREVIOUS TRACING : 03/11/2017 05.11 Since the previous tracing, no significant change noted DOCTOR: Alejandro Young Interpretating Date/Time 08/03/2018 18:19:20
[2018-08-04] MEDS: Heparin - SQ 10,000 UNITS/ML Vial SQ SCH ×4 (00:44→23:24)
[2018-08-04] MEDS: Acetaminophen 500 MG Tablet PO PRN (03:53)
--- NOTE | 2018-08-04 08:13 | P.PNIM ---
Subjective Interval history: Follow up chest pain and hypoxia. Patient seen and examined, sitting up in bed with continued intermittent chest discomfort. Did well overnight. Expresses concern regarding continued chest pain and inquiring if there is any other intervention to do to help his heart spasms at home. Spoke to patient at length this morning regarding treatment plan. I spoke personally with Dr. Stallings, cardiology carton filler as well as Dr. Simmons who was his previous aboriginal ceremonial celebrant, and updated about patient presentation to the hospital. Patient underwent a lexiscan which was reviewed by carton filler aboriginal ceremonial celebrant, this defect is all old and intervention would be for continuing medications. Patient is improved some, and continued on home medications. He follows with a MD in [place] who has been managing his CAD and cardiomyopathy. Will obtain ECHO and walk test today. CTA Was negative last evening for PE. Would like to DC home later this afternoon to follow up with his aboriginal ceremonial celebrant. It seems we have exhausted our efforts for medication management of his symptoms. Physical Exam Vital signs: Vital Signs 08/03/18 09:30 08/03/18 12:00 08/03/18 15:45 Temperature 98.6 F Pulse Rate 64 68 Respiratory Rate 19 Blood Pressure 157/93 H Pulse Oximetry 95 86 L 08/03/18 15:50 08/03/18 16:00 08/03/18 20:00 Temperature 97.6 F 96.2 F L Pulse Rate 81 78 Respiratory Rate 19 20 Blood Pressure 139/65 134/63 Pulse Oximetry 92 L 92 L 93 L 08/03/18 20:06 08/04/18 00:00 08/04/18 04:00 Temperature 97.0 F L 96.1 F L Pulse Rate 74 66 Respiratory Rate 20 20 Blood Pressure 114/59 L 113/58 L Pulse Oximetry 94 L 95 96 Intake & Output 08/03/18 08/04/18 08/04/18 18:59 06:59 18:59 Intake Total 1740 / 1740 480 / 480 Output Total 540 / 540 Balance 1200 / 1200 480 / 480 Weight 108.1 kg 108.3 kg Intake: IV 1300 / 1300 NS Inj 1,000 ML @ 100 mls/hr IV 1300 / 1300 .CONT .Q10H [place] Rx#:[id number] Oral 440 / 440 480 / 480 Output: Urine 540 / 540 Other: # Voids 3 Weight On Admission 108.1 kg Narrative: GENERAL: Well-developed, well-nourished patient with present complaints of intermittent heart spasms. SKIN: Warm and dry. No rash. HEAD: Normocephalic. Atraumatic. EYES: Pupils equal and round. No scleral icterus. No injection or drainage. ENT: No nasal bleeding or discharge. Mucous membranes pink and moist. NECK: Supple. Trachea midline. CARDIOVASCULAR: Regular rate and rhythm. S1, S2 noted. No murmur appreciated. RESPIRATORY: No accessory muscle use. Clear to auscultation. Breath sounds equal bilaterally. GASTROINTESTINAL: Abdomen soft, non-tender, nondistended. Normoactive bowel sounds x4. MUSCULOSKELETAL: No obvious deformities. Extremities without clubbing, cyanosis , or edema. NEUROLOGICAL: Awake and alert. No obvious cranial nerve deficits. Motor grossly within normal limits. 5/5 muscle strength in bilateral upper and lower extremities. Normal speech. PSYCHIATRIC: Appropriate mood and affect; insight and judgment normal. Results - Labs CBC & Chem 7: 08/02/18 22:45 08/02/18 22:45 - Imaging Impressions Chest CTA 08/03/18 00:00 CONCLUSION: 1. Negative for pulmonary embolus. 2. Subsegmental basilar dependent airspace disease in the lungs most characteristic of atelectasis or scarring. Myocardial Perfusion Scan Nuc Med 08/03/18 00:00 CONCLUSION: 1. Large fixed septal, anterior and apical perfusion abnormality 2. Significant LV dysfunction and LV chamber dilatation Assessment and Plan - Assessment (1) Chest pain, rule out acute myocardial infarction Code(s): R07.9 - Chest pain, unspecified Status: Acute - Plan This is a 62-year-old male patient with: Acute chest pain, ruled out TN. Intermittent. History of hypertension, chronic History of CAD with multiple cardiac stents History of SVT with previous ablation History of hyperlipidemia -Patient complaint of chest pain x 2 hours prior to presentation. States he usually takes 8 Nitroglycerin tablets on a daily basis for complaints of heart spasms. This has not relieved his pain the past couple days. -Patient has been admitted to the chest pain for observation. -Serial EKGs and serial troponins have been ordered for ruling out ACS purposes. ACS ruled out. -Serial troponins negative. EKG reviewed and showing controlled HR, with no ST changes to indicate ischemia, -CBC and BMP reviewed and essentially unremarkable. -CXR reviewed and not significant for any acute cardiopulmonary disease. -Has been following with a aboriginal ceremonial celebrant in [place], last seen a couple months ago. No new changes to his medications. ECHO has recently been done. Awaiting ECHO report today. -Continued on cardiac telemetry, monitor for any arrhythmias. None noted. -Continue on home medications including Plavix, Pletal, aspirin and statin. -Patient has multiple risk factors with continued pain. Patient underwent a lexiscan which report has been reviewed with carton filler aboriginal ceremonial celebrant. Impression is that the findings are all old and to maximize medication management for his CAD and cardiomyopathy. His prior aboriginal ceremonial celebrant Dr. Simmons has also been updated about his presentation and no further recommendations for medications have been recommended. -Will continue with supportive care, oxygen and pain medication as needed. Acute respiratory failure with hypoxia and need for supplemental O2. Possible CHF exacerbation Congestive heart failure, unknown type -Patient had an episode of shortness of breath and chest discomfort after the lexiscan yesterday. A stat CTA was done to rule out PE secondary to continued need for supplemental O2. Negative for PE. No significant findings found on CTA. -Patient has been continued on 4LNC overnight. He did pass walk test. Now on RA. -BNP is 137. No edema noted. Patient states he has been taking double of his Lasix dose for a total of 80 mg daily as well as double of his spirolactone. Will continue while hospitalized. -Will continue on home prescribed dose and monitor closely. Monitor intake and output. -Recent ECHO has been done with aboriginal ceremonial celebrant per patient. Unable to obtain records. Will check ECHO today. Await results. DVT prophylaxis: SCDs. Heparin. Discharge Planning: Await clinical improvement.
[2018-08-04] MEDS: Furosemide 40 MG Tablet PO SCH (09:00)
[2018-08-04] MEDS: Famotidine 20 MG Tablet PO SCH ×2 (09:00→21:55)
[2018-08-04] MEDS: Spironolactone 25 MG Tablet PO SCH (09:00)
[2018-08-04] MEDS: Cilostazol 50 MG Tablet PO SCH ×2 (09:00→21:55)
[2018-08-04] MEDS: hydrALAZINE 25 MG Tablet PO SCH ×3 (09:01→18:20)
[2018-08-04 10:00] VITALS: RESP 18
[2018-08-04] MEDS: Morphine Sulfate Inj 2 MG/ML Vial IV.PUSH PRN (11:50)
[2018-08-04] MEDS: Isosorbide Mononitrate 30 MG ER 24HR Tablet (Imdur) PO SCH (16:17)
--- NOTE | 2018-08-04 16:55 | ECG ---
Date Performed: 08/04/2018 Time Performed: 11:59:18 PTAGE: 62 years EKG: Sinus rhythm WITH OCCASIONAL VENTRICULAR PREMATURE COMPLEXES WITH OCCASIONAL SUPRAVENTRICULAR PREMATURE COMPLEXES MINIMAL ST DEPRESSION Compared to previous tracing, the PVC is new, otherwise no significant change BORDERLINE ECG PREVIOUS TRACING : 08/03/2018 07.18 DOCTOR: Savage Raman Interpretating Date/Time 08/04/2018 16:54:04
--- NOTE | 2018-08-04 17:08 | ECHRPT ---
Indication: Heart Failure CONCLUSIONS Moderately dilated left ventricle. Mild concentric left ventricular hypertrophy. The left ventricular systolic function is mildly reduced with an estimated ejection fraction of 45%. The left atrial size is [id number] dilated. Trace mitral valve regurgitation. There is trace tricuspid valve regurgitation. The estimated pulmonary arterial pressure is 19 mmHg. BP: / HR: Rhythm: MEASUREMENTS (Male / Female) Normal Values Technical Quality:Technically difficult study 2D ECHO LV Diastolic Diameter PLAX 6.8 cm 4.2 - 5.9 / 3.9 - 5.3 cm LV Systolic Diameter PLAX 5.5 cm IVS Diastolic Thickness 1.2 cm 0.6 - 1.0 / 0.6 - 0.9 cm LVPW Diastolic Thickness 1.2 cm 0.6 - 1.0 / 0.6 - 0.9 cm LV Relative Wall Thickness 0.4 RV Internal Dim ED PLAX 2.6 cm LVOT Diameter 2.4 cm Aortic Root Diameter 3.7 cm LA Systolic Diameter LX 4.6 cm 3.0 - 4.0 / 2.7 - 3.8 cm DOPPLER AV Peak Velocity 175.0 cm/s AV Peak Gradient 12.3 mmHg LVOT Peak Velocity 140.0 cm/s LVOT Peak Gradient 7.8 mmHg AV Area Cont Eq pk 3.6 cm Mitral E Point Velocity 104.0 cm/s Mitral A Point Velocity 89.3 cm/s Mitral E to A Ratio 1.2 LV E' Lateral Velocity 5.1 cm/s Mitral E to LV E' Lateral Ratio 20.5 LV E' Septal Velocity 7.1 cm/s Mitral E to LV E' Septal Ratio 14.6 TR Peak Velocity 189.0 cm/s TR Peak Gradient 14.3 mmHg Right Atrial Pressure 5.0 mmHg Pulmonary Artery Systolic Pressu 19.3 mmHg Right Ventricular Systolic Press 19.3 mmHg PV Peak Velocity 100.0 cm/s PV Peak Gradient 4.0 mmHg FINDINGS LEFT VENTRICLE Moderately dilated left ventricle. Mild concentric left ventricular hypertrophy. The left ventricular systolic function is mildly reduced with an estimated ejection fraction of 45%. RIGHT VENTRICLE Normal right ventricular size and systolic function. LEFT ATRIUM The left atrial size is [id number] dilated. RIGHT ATRIUM The right atrial size is normal. ATRIAL SEPTUM Normal atrial septal thickness without atrial level shunting by limited color doppler interrogation. AORTA The aortic root and proximal ascending aorta are normal in size on limited imaging. MITRAL VALVE Trace mitral valve regurgitation. AORTIC VALVE Trileaflet aortic valve. TRICUSPID VALVE There is trace tricuspid valve regurgitation. The estimated pulmonary arterial pressure is 19 mmHg. PULMONARY VALVE No pulmonary valve regurgitation or stenosis. VESSELS The inferior vena cava was not well visualized. PERICARDIUM No pericardial effusion. Chelsea Bundy MD, FACC (Electronically Signed) Final Date:04 August 2018 17:07
[2018-08-05] MEDS: Acetaminophen 500 MG Tablet PO PRN (01:12)
[2018-08-05] MEDS: Isosorbide Mononitrate 30 MG ER 24HR Tablet (Imdur) PO SCH (06:15)
--- NOTE | 2018-08-05 07:45 | P.DS ---
Date of admission: 08/02/18 23:51 Primary care physician: No Primary Care Physician Anticipated date of discharge: 08/05/18 Brief History from admission: This is a pleasant 62-year-old male patient with a known medical history of CAD with multiple cardiac stents, SVT status post ablation as well as hyperlipidemia who presented to the ED with complaints of chest pain. Patient states that this chest pain started last evening while at rest, it is midsternal in nature and radiates to his neck and left arm. He states that he relates this pain to his previous PA in the past. He does admit to associated shortness of breath, sweating, nausea and vomiting with the pain. He states that the pain has been pretty constant in nature with sharp spasms of pain that worsens intermittently without any known aggravating or alleviating factors. Patient does state that he takes up to 8 nitroglycerin tablets every day for his said symptoms. His last stress test was reportedly last July in 2016 which was reportedly negative. He also admits to taking double his dose of Lasix for a total of 80 mg daily due to feelings of holding water and reportedly gained 11 pounds over the past couple months. It should be noted that patient had an PA in December 2016 and that year had 3 cardiac stents placed. He was initially followed with Dr. Simmons, cardiology and has been referred to a mission assessment specialist in [place] for further recommendations of treatment. He last saw his MD in [place] roughly 2 months ago. No changes to medications. At the time of assessment patient states that his pain is still present, nitroglycerin cream does help his pain. He denies any recent illness including fever, chills, cough, headache, diarrhea or dysuria. Patient update on day of discharge: Chest pain. Examined, lying in bed comfortably in no apparent distress. States he slept well, does complain of his chronic intermittent chest spasms. But overall he has improved. Imdur ordered yesterday, patient refused secondary to having problems in the past with this medication. Patient requesting that may be an anxiety medication be prescribed as well as antidepressant for this. Patient is overall improved and will be discharged home today. DS: Diagnosis - Discharge Diagnosis (1) Chest pain, rule out acute myocardial infarction Status: Acute DS: Medications - Discharge Medications Prescriptions: alprazolam [Xanax] 0.25 mg PO BID #10 tab escitalopram oxalate [Lexapro] 10 mg PO DAILY 30 Days #30 tab DS: Summary Hospital Course: This is a 62-year-old male patient who presented with chest pain. ACS was ruled out. He does have history of hypertension, CAD with multiple cardiac stents, history of SVT with previous ablation and hyperlipidemia. He states that his chest pain lasted 2 hours prior to presentation. He does usually take 8 nitroglycerin tablets on a daily basis for complaints of heart spasms. Serial EKGs and serial troponins were ordered for ruling out ACS purposes. Serial troponins were flat. EKG showed controlled heart rate without any ST changes. CBC and BMP were essentially unremarkable. Chest x-ray was done with no significant findings. Patient does follow with mission assessment specialist in [place] , last seen a couple months ago. Echocardiogram was done during hospitalization which showed an EF of 45%., No arrhythmias were noted. He was continued on his home medications including Plavix, Pletal, aspirin and statin. Patient also underwent a cardiac Lexiscan which did show a large defect. [facility] on-call was updated and no further interventions were recommended. Patient also had acute respiratory failure with hypoxia and need for supplemental O2. This is probably secondary to anxiety as well as mild CHF exacerbation. A CTA was done which ruled out PE. He was weaned off oxygen. BNP was 137 on presentation. He does admit to taking double of his Lasix a day for the past several days. Lifestyle modifications were encouraged as well as avoiding high salty foods. Patient was ultimately stabilized on day of discharge and encouraged to follow-up with PCP mission assessment specialist. He did express stating that he feels anxious every day regarding his diagnoses. Prescribed short term dose of benzodiazepine and encouraged patient to follow-up with PCP. He also an SSRI for depression. This should be managed with PCP when he is discharged. Patient is understanding of the plan and encouraged to follow-up with recommendations. Patient will be discharged home. Activity as tolerated. Heart healthy diet. Prescriptions as ordered. - Time Spent with Patient Total time spent providing and/or coordinating discharge services: Greater than 30 minutes - Quality: VTE Deep Vein Thrombosis/Pulmonary Embolism Present on Admission: No Exam Vital signs: Vital Signs 08/04/18 08:00 08/04/18 11:00 08/04/18 12:00 Temperature 97.4 F L 98.5 F Pulse Rate 76 96 H Respiratory Rate 18 18 Blood Pressure 144/65 H 136/64 Pulse Oximetry 94 L 92 L Pulse Oximetry [Exertion on Room Air] 92 L Pulse Oximetry [Resting on Room Air] 93 L 08/04/18 12:40 08/04/18 16:00 08/04/18 20:00 Temperature 97.4 F L 98.0 F Pulse Rate 82 86 Respiratory Rate 18 18 18 Blood Pressure 122/63 129/61 133/61 Pulse Oximetry 92 L 92 L Pulse Oximetry [Exertion on Room Air] Pulse Oximetry [Resting on Room Air] 08/04/18 21:11 08/04/18 23:40 08/05/18 04:00 Temperature 98.0 F 98.0 F Pulse Rate 80 79 Respiratory Rate 18 18 Blood Pressure 135/60 130/58 L Pulse Oximetry 92 L 93 L 95 Pulse Oximetry [Exertion on Room Air] Pulse Oximetry [Resting on Room Air] Intake & Output 08/04/18 08/05/18 08/05/18 18:59 06:59 18:59 Weight 108 kg Other: # Voids 8 3 # Bowel Movements 2 Narrative: GENERAL: Well-developed, well-nourished patient SKIN: Warm and dry. No rash. HEAD: Normocephalic. Atraumatic. EYES: Pupils equal and round. No scleral icterus. No injection or drainage. ENT: No nasal bleeding or discharge. Mucous membranes pink and moist. NECK: Supple. Trachea midline. CARDIOVASCULAR: Regular rate and rhythm. S1, S2 noted. No murmur appreciated. RESPIRATORY: No accessory muscle use. Clear to auscultation. Breath sounds equal bilaterally. GASTROINTESTINAL: Abdomen soft, non-tender, nondistended. Normoactive bowel sounds x4. MUSCULOSKELETAL: No obvious deformities. Extremities without clubbing, cyanosis , or edema. NEUROLOGICAL: Awake and alert. No obvious cranial nerve deficits. Motor grossly within normal limits. 5/5 muscle strength in bilateral upper and lower extremities. Normal speech. PSYCHIATRIC: Appropriate mood and affect; insight and judgment normal. Results Procedures completed during hospitalization: See below - Impressions ITS Impressions Chest X-Ray 08/02/18 22:44 CONCLUSION: Cardiomegaly. No acute pulmonary disease. Chest CTA 08/03/18 00:00 CONCLUSION: 1. Negative for pulmonary embolus. 2. Subsegmental basilar dependent airspace disease in the lungs most characteristic of atelectasis or scarring. Myocardial Perfusion Scan Nuc Med 08/03/18 00:00 CONCLUSION: 1. Large fixed septal, anterior and apical perfusion abnormality 2. Significant LV dysfunction and LV chamber dilatation Discharge Plan - Discharge Disposition Patient Disposition: 01 Discharge Home - Discharge Condition Condition: Stable - Discharge Order Discharge Orders: Discharge Order (Routine); Ordered 08/05/18 Ordered By: Maddi Donaldson - Discharge Details Anticipated Discharge Date: 08/04/18 - Physicians Team Primary Care Provider: Primary Care Kayleen Young Attending Provider: Janae Goldstein
[2018-08-05] MEDS: Heparin - SQ 10,000 UNITS/ML Vial SQ SCH (08:43)
[2018-08-05] MEDS: Spironolactone 25 MG Tablet PO SCH (08:44)
[2018-08-05] MEDS: hydrALAZINE 25 MG Tablet PO SCH (08:45)
[2018-08-05] MEDS: Furosemide 40 MG Tablet PO SCH (08:46)
[2018-08-05] MEDS: Famotidine 20 MG Tablet PO SCH (08:46)
[2018-08-05] MEDS: Cilostazol 50 MG Tablet PO SCH (08:47)
[2018-08-05 08:54] VITALS: BP 146/70; TEMP 97.9
[2018-08-05] MEDS ORDERED: Influenza (Quadrivalent) Vaccine 0.5 ML Syringe IM ONE (08:54)
[2018-08-05 09:18] VITALS: PULSE 89
[2018-08-05 09:19] VITALS: O2SAT 91
== END 2018-08-05 10:34 | disposition home or self-care (01) ==
LOC: PHED 22:35 → PHEDA 22:35 → PH3 08-03 08:00
PROVIDERS: ADMIT Internal Medicine; ATTEND Internal Medicine